=== PATIENT | female | born 1935 | race Caucasian/White ===

== ENCOUNTER 2021-01-26 19:23 | Emergency (ER) | payer OTHER, MEDICARE, SELFPAY ==
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
[2021-01-26 19:45] VITALS: BP 156/81; PULSE 65; RESP 16; TEMP 36.7; O2SAT 96; BMI 25.0
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
--- NOTE | 2021-01-26 20:13 | PC.NURSE ---
Ambulated to bathroom with minimal assistance.
[2021-01-26 20:34] VITALS: BP 145/91; PULSE 76; RESP 16; O2SAT 96
== END 2021-01-26 20:35 | disposition home or self-care (01) ==
PROVIDERS: Emergency Provider Emergency Medicine
DX: S20.219A Contusion of unspecified front wall of thorax, initial encounter (principal); V89.2XXA Person injured in unspecified motor-vehicle accident, traffic, initial encounter
CPT/HCPCS: 71046; 73100; 99281

== ENCOUNTER 2021-08-16 18:39 | Emergency (ER) | payer MEDICARE, MEDICAID, SELFPAY ==
[2021-08-16 18:53] VITALS: BP 181/94; PULSE 75; RESP 18; TEMP 36.9; O2SAT 92; BMI 24.6
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
--- NOTE | 2021-08-16 18:56 | CTR_ITS ---
PROCEDURE INFORMATION: Exam: CT Thoracic Spine Without Contrast Exam date and time: 08/16/2021 7:11 PM Age: 85 years old Clinical indication: Pain in thoracic spine; Additional info: Fall TECHNIQUE: Imaging protocol: Computed tomography images of the thoracic spine without contrast. Radiation optimization: All CT scans at this facility use at least one of these dose optimization techniques: automated exposure control; mA and/or kV adjustment per patient size (includes targeted exams where dose is matched to clinical indication); or iterative reconstruction. COMPARISON: CR (CHEST, ) 01/26/2021 7:39 PM RADIATION DOSE METRICS: Total DLP (mGy-cm): 2545.08 FINDINGS: Vertebrae: Mild exaggeration of the thoracic kyphosis. Diffuse osteopenia noted throughout the spine. No acute compression fractures are noted. 1.8 cm T2 vertebral body hemangioma. Discs/Spinal canal/Neural foramina: Degenerative disc changes and ankylosis noted throughout the thoracic spine. No spinal canal stenosis. Soft tissues: Unremarkable. CT/CT thoracic spin wo con* [id number] IMPRESSION: 1. Degenerative thoracic spine changes are noted. 2. No acute abnormality of the thoracic spine demonstrated.
--- NOTE | 2021-08-16 19:00 | W.ED.FALL ---
HPI - Fall General: Chief Complaint: Fall Stated Complaint: hurting from fall Time Seen by Provider: 08/16/21 18:42 Source: patient Mode of arrival: ambulatory Limitations: no limitations History of Present Illness: 85-year-old female who states that she been walking up some stairs roughly 2 to 3 hours ago and tripped on the first developed and fell backwards. She states she landed on her buttocks and has tailbone pain along with some lumbar and thoracic pain. States pain is sharp in nature rates it a 5 out of 10 its worse with walking she denies any other injuries denies any hip pain or leg pain she denies hitting her head denies any headache or neck pain. Associated symptoms-after fall: Denies abdominal pain, chest pain or headache(s) Review of Systems Const: Denies: fever(s), chills, body aches or change in appetite Eyes: Denies: blurry vision or eye discomfort ENMT: Denies: throat pain or dental pain Card: Denies: chest pain Resp: Denies: dyspnea GI: Denies: abdominal pain, nausea, vomiting or diarrhea : Denies: dysuria Musc: Reports: back pain Skin/Breast: Denies: rash Neuro: Denies: headache(s) Psych: Denies: depression Clarence/Lymph: Denies: easy bruising All/Imm: Denies: urticaria [facility] ED PFSH: Medical History No pertinent past medical history Social History (Updated 08/16/21 @ 19:00 by Hernesto Welch MD) Substance/Drug Use: never Physical Exam Const: COMMON NORMALS: no acute distress, patient oriented x3 and healthy appearing HENMT: COMMON NORMALS: normocephalic and atraumatic HEAD & SCALP: normocephalic and atraumatic Eye: COMMON NORMALS: Equal, round and reactive pupils present and EOMs intact bilaterally PUPIL: Yes Equal, round and reactive pupils present Neck/C-Spine: COMMON NORMALS: full ROM and supple Chest: COMMONS NORMALS: normal inspection of the chest and normal palpation of entire chest wall Resp: COMMON NORMALS: normal respiratory effort, No retractions, No use of accessory muscles and clear to auscultation bilaterally AUSCULTATION: clear to auscultation bilaterally Cardio: COMMON NORMALS: regular rate, regular rhythm and No murmurs present (Cardio) RATE: regular rate RHYTHM: regular rhythm GI: COMMON NORMALS: Normal to inspection, nondistended, normoactive bowel sounds present, Soft to palpation, non-tender and no masses PALPATION: Yes Soft to palpation Back/Pelvis: OTHER: Slight tenderness over thoracic lumbar spine with no obvious deformities Extremity: COMMON NORMALS: normal to inspection and full ROM Neuro: COMMON NORMALS: patient oriented x3, moves all extremities and no focal motor deficits Psych: COMMON NORMALS: mental status grossly normal, Normal thought process present and cooperative THOUGHT PROCESS: Normal thought process present Skin: COMMON NORMALS: no rashes or lesions noted and no wounds GENERAL SKIN EXAM: no rashes or lesions noted Course Vital Signs: Vital signs: Vital Signs Temperature 98.5 F 08/16/21 18:53 Pulse Rate 75 08/16/21 18:53 Respiratory Rate 18 08/16/21 18:53 Blood Pressure 181/94 08/16/21 18:53 Pulse Oximetry 92 08/16/21 18:53 MDM - Fall Medical Decision Making Patient presents here with fall with a possible T12 fracture patient has minimal pain here exam is benign she able ambulate without any problems she is stable for discharge she is to follow-up return if worsening. Lab Data Radiology Impressions Lumbar Spine CT 08/16/21 18:56 IMPRESSION: 1. Mild superior endplate compression fracture of T12, of undetermined age. Acute fracture not excluded. Consider MRI to further evaluate. 2. No additional vertebral compression fractures are noted. Thoracic Spine CT 08/16/21 18:56 IMPRESSION: 1. Degenerative thoracic spine changes are noted. 2. No acute abnormality of the thoracic spine demonstrated. ADDENDUM: 08/16/212019 Correction: There is mild loss of height of the T12 vertebral body, consistent with a compression fracture of undetermined age. This finding is better demonstrated on the CT lumbar spine study, which uses a smaller field of view. Discharge Plan Discharge Patient Disposition: Home Clinical Impression: Compression fracture Prescriptions: New Naprosyn 500 mg tablet 500 mg PO BID PRN (Reason: pain) Qty: 20 0RF hydrocodone-acetaminophen 5-325 mg tablet 1 tab PO Q6H PRN (Reason: pain) Qty: 6 0RF No Action Vitamin D2 10 mcg (400 unit) Tablet 10 mcg PO DAILY 0RF acebutolol 400 mg capsule 400 mg PO DAILY 0RF Aspir-81 81 mg Tablet,Delayed Release (Dr/Ec) 81 mg PO DAILY 0RF hydrochlorothiazide 25 mg tablet 25 mg PO DAILY 0RF sertraline 50 mg tablet 50 mg PO DAILY 0RF Discharge Orders: Discharge ED (Routine); Ordered 08/16/21 Ordered By: Hernesto Welch Referrals: Waylon Burk DO [Physician] - 1-3 days Discharge Diet: Advance as tolerated Discharge Activity: Resume usual activity Patient Instructions: Vertebral Compression Fracture (ED) Coding Level of Care Code ED Mattress Filling Machine Tender for Chg Fwd Exam Comprehensive
[2021-08-16] MEDS: naproxen 500 mg Tablet PO (19:04)
--- NOTE | 2021-08-17 09:59 | DCPLANNER ---
Addendum entered by Charlotte Connolly 08/19/21 06:30: Patient had a follow up appointment scheduled for 08.18.[address] Burk at ortho - patient did attend appointment. Original Note: printing manager had message to schedule a follow up appointment for patient with [facility]. printing manager sent patients information to the ortho clinic front staff. Patients information will be printed and reviewed. Clinic will call patient with appointment information.
== END 2021-08-16 20:42 | disposition home or self-care (01) ==
PROVIDERS: Emergency Provider Emergency Medicine
DX: S22.080A Wedge compression fracture of T11-T12 vertebra, initial encounter for closed fracture (principal); W10.9XXA Fall (on) (from) unspecified stairs and steps, initial encounter
CPT/HCPCS: 72128; 72131; 99283

== ENCOUNTER → 2021-08-18 14:30 | Outpatient (BNVA) | payer MEDICARE, SELFPAY | PROVIDERS: Referring Provider Emergency Medicine; Visit Provider Orthopaedic Surgery | DX: R07.81 Pleurodynia (principal) | CPT/HCPCS: 99203 ==

== ENCOUNTER 2022-12-12 13:24 | Inpatient (IN) | payer MEDICARE, MEDICAID, SELFPAY ==
[2022-12-12] VITALS (8 sets, daily range): BP systolic 125–145; BP diastolic 56–74; PULSE 62–71; RESP 14–18; TEMP 36.7–36.8; O2SAT 90–97; BMI 25.0
--- NOTE | 2022-12-12 13:43 | ED_ITS ---
Documented by User: Sekou Moncada DO 12/12/22 15:57 HPI - Extremity Problem General: Chief complaint: Extremity Injury, Lower Stated complaint: poss broken LT hip Time Seen by Provider: 12/12/22 13:44 Source: patient Mode of arrival: ambulatory History of Present Illness: 86-year-old female presents emergency room with complaints of left hip pain. She was at [facility] and she went to turn on her left hip and fell she felt like she stumbled or just lost her balance she landed on her left hip when she had the floor had severe pain and could not stand EMS brought her into the emergency room. She has an obviously externally rotated hip. She is not on any anticoagulants she last ate around 12/19/1929 this morning she has severe pain with any movement. No other injuries she denies striking her head. She has a history of hypertension. MD Complaint: joint pain Onset (ago): minute(s) Pain Consistency: constant Location: left (Hip) Severity scale (1-10): 10 Quality: sharp Radiation: distal Relieving factors: rest Exacerbating factors: palpation Associated symptoms: Deny arthralgias, chest pain, fever(s), myalgias, rash or short of breath Review of Systems Const: Denies: fever(s) or chills ENMT: Denies: throat pain, ear or mastoid pain, nasal discharge or nasal congestion Card: Denies: chest pain Resp: Denies: dyspnea, productive cough or non-productive cough GI: Denies: abdominal pain, nausea, vomiting, hematemesis, coffee ground emesis, diarrhea, constipation, bloating, hematochezia or melena : Denies: flank pain, difficulty voiding, dysuria, urinary frequency or urinary urgency Skin/Breast: Denies: rash PFS ED PFSH: Medical History No pertinent past medical history Social History Smoking and tobacco status: former smoker Substance/Drug Use: never Physical Exam Const: GENERAL APPEARANCE: cooperative and comfortable ORIENTATION/CONSCIOUSNESS: Yes awake, Yes oriented to person, Yes oriented to place and Yes oriented to time HENMT: COMMON NORMALS: normocephalic, atraumatic and hearing grossly normal bilaterally HEAD & SCALP: normocephalic and atraumatic Resp: COMMON NORMALS: normal respiratory effort, No retractions, No use of accessory muscles and clear to auscultation bilaterally AUSCULTATION: clear to auscultation bilaterally Cardio: COMMON NORMALS: regular rate, regular rhythm and No murmurs present (Cardio) RATE: regular rate RHYTHM: regular rhythm GI: COMMON NORMALS: Soft to palpation and No hepatosplenomegaly present AUSCULTATION: Yes normoactive bowel sounds PALPATION: Yes Soft to palpation, No Tenderness to palpation present (GI), No Guarding due to palpation present (GI) and Yes No hepatosplenomegaly present Extremity: COMMON NORMALS: normal to inspection, capillary refill normal, no clubbing, cyanosis or edema, no calf tenderness and no pedal edema OTHER: Left hip externally rotated and shortened. Neurovascular intact both lower extremities Neuro: SENSORIUM/ORIENTATION: Yes oriented to person, Yes oriented to place an d Yes oriented to time Skin: COMMON NORMALS: no rashes or lesions noted GENERAL SKIN EXAM: no rashes or lesions noted Course Vital Signs: Vital signs: Vital Signs Temperature 97.9 F 12/13/22 17:29 Pulse Rate 65 12/13/22 18:25 Respiratory Rate 16 12/13/22 18:25 Blood Pressure 106/63 12/13/22 18:25 Pulse Oximetry 96 12/13/22 18:25 Oxygen Delivery Me thod Nasal Cannula 12/13/22 18:25 Oxygen Flow Rate 3 12/13/22 17:29 MDM - Extremity (Nontraumatic) Medical Decision Making Left femoral neck/subcapital mildly displaced hip fracture. Discussed Dr. Nichols and with hospitalist orders written will admit Dr. Nichols informed me he plans to take the patient to the OR tomorrow as a to follow case after his previously janeth eduled cases pain medications given to the patient in the emergency room Medical Records I reviewed the patient's medical records. Lab Data I reviewed the patient's lab results. 12/13/22 04:06 12/13/22 04:06 Radiology Impressions Chest X-Ray 12/12/22 14:29 IMPRESSION: No acute findings. Femur X-Ray 12/12/22 14:29 IMPRESSION: 1. Subcapital fracture left femoral neck 2. Otherwise negative exam of the left femur Knee X-Ray 12/12/22 14:29 IMPRESSION: 1. Severe osteoarthritis 2. No acute findings. 3. Supra patella bursa effusion Chest CTA 12/13/22 08:52 IMPRESSION: 1. No pulmonary embolism. 2. No adenopathy. 3. LEFT upper lobe 9 mm pulmonary nodule and a 10 mm nodule along the inferior RIGHT major fissure. Both of these nodules may be further evaluated. Differential includes early neoplasm versus atelectasis or fluid along the fissure. Recommend follow-up chest CT in 3 months. 4. Moderate size hiatal hernia. 5. Moderate atherosclerosis aorta. Hip/Pelvis X-Ray 12/13/22 17:23 IMPRESSION: 1. Left hip arthroplasty changes in place with postsurgical soft tissue findings. 2. [id number] right hip osteoarthritis. Laboratory Results WBC 10.5 10^3/uL (4.0-10.0) H 12/12/22 14:24 RBC 4.73 10^6/uL (4.1-5.3) 12/12/22 14:24 Hgb 13.8 g/dL (11.5-15.3) 12/12/22 14:24 Hct 42.0 % (37.0-47.0) 12/12/22 14:24 MCV 88.8 fl (81-99) 12/12/22 14:24 MCH 29.2 pg (28.0-34.0) 12/12/22 14:24 MCHC 32.9 g/dL (30.0-36.0) 12/12/22 14:24 RDW 11.9 % (12.1-15.1) L 12/12/22 14:24 Plt Count 211 10^3/cmm (130-400) 12/12/22 14:24 MPV 9.8 fL (7.4-10.4) 12/12/22 14:24 Neut % (Auto) 82.4 % 12/12/22 14:24 Lymph % (Auto) 10.5 % 12/12/22 14:24 [place] % (Auto) 5.1 % 12/12/22 14:24 Eos % (Auto) 1.1 % 12/12/22 14:24 Baso % (Auto) 0.3 % 12/12/22 14:24 Neut # (Auto) 8.64 10^3/uL (1.8-7.7) H 12/12/22 14:24 Lymph # (Auto) 1.1 10^3/uL (0.8-4.8) 12/12/22 14:24 [place] # (Auto) 0.5 10^3/uL (0.2-0.9) 12/12/22 14:24 Eos # (Auto) 0.1 10^3/uL (0.0-0.8) 12/12/22 14:24 Baso # (Auto) 0.0 10^3/uL (0.0-0.1) 12/12/22 14:24 Nucleated RBC % (auto) 0 % 12/12/22 14:24 Nucleated RBCs # 0.0 /100WBC 12/12/22 14:24 D-Dimer 14.51 ug/mIFEU (0-0.59) H 12/12/22 14:24 Vitamin B12 353 pg/mL (232-1245) 12/12/22 14:24 Urine Color Yellow (Yellow) 12/12/22 15:20 Urine Appearance Clear (CLEAR) 12/12/22 15:20 Urine pH 6 (5-7) 12/12/22 15:20 Ur Specific [place] 1.015 (1.005-1.030) 12/12/22 15:20 Urine Protein Neg (Negative) 12/12/22 15:20 Urine Glucose (UA) Norm (Normal) 12/12/22 15:20 Urine Ketones Negative (Negative) 12/12/22 15:20 Urine Blood Neg (Negative) 12/12/22 15:20 Urine Nitrate Negative (Negative) 12/12/22 15:20 Urine Bilirubin Neg (Negative) 12/12/22 15:20 Urine Urobilinogen Norm mg/dL (Negative) 12/12/22 15:20 Ur Leukocyte Esterase Negative (Negative) 12/12/22 15:20 Discharge Plan Discharge Patient Disposition: Admitted As Inpatient Admit Provider: Zaid Monroy Clinical Impression: Closed fracture of neck of left femur, Hypertension Condition: Stable Coding Level of Care Code ED Tank Stave Assembler for Chg Fwd Documented by User: Andrew Laoterrance 12/13/22 19:55 HPI - Extremity Problem General: Chief complaint: Extremity Injury, Lower Stated complaint: poss broken LT hip Time Seen by Provider: 12/12/22 13:44 PFSH ED PFSH: Medical History No pertinent past medical history Social History Smoking and tobacco status: former smoker Substance/Drug Use: never Course Vital Signs: Vital signs: Vital Signs Temperature 97.9 F 12/13/22 17:29 Pulse Rate 65 12/13/22 18:25 Respiratory Rate 16 12/13/22 18:25 Blood Pressure 106/63 12/13/22 18:25 Pulse Oximetry 96 12/13/22 18:25 Oxygen Delivery Me thod Nasal Cannula 12/13/22 18:25 Oxygen Flow Rate 3 12/13/22 17:29 MDM - Extremity (Nontraumatic) Medical Records I never did see this patient I clicked on this patient's chart however my colleague Dr. Corral saw and evaluated this patient prior to my involvement i n which I had no additional involvement of the case Lab Data 12/13/22 04:06 12/13/22 04:06 Radiology Impressions Chest X-Ray 12/12/22 14:29 IMPRESSION: No acute findings. Femur X-Ray 12/12/22 14:29 IMPRESSION: 1. Subcapital fracture left femoral neck 2. Otherwise negative exam of the left femur Knee X-Ray 12/12/22 14:29 IMPRESSION: 1. Severe osteoarthritis 2. No acute findings. 3. Supra patella bursa effusion Chest CTA 12/13/22 08:52 IMPRESSION: 1. No pulmonary embolism. 2. No adenopathy. 3. LEFT upper lobe 9 mm pulmonary nodule and a 10 mm nodule along the inferior RIGHT major fissure. Both of these nodules may be further evaluated. Differential includes early neoplasm versus atelectasis or fluid along the fissure. Recommend follow-up chest CT in 3 months. 4. Moderate size hiatal hernia. 5. Moderate atherosclerosis aorta. Hip/Pelvis X-Ray 12/13/22 17:23 IMPRESSION: 1. Left hip arthroplasty changes in place with postsurgical soft tissue findings. 2. Gzyj-hv-uqomxsnh right hip osteoarthritis. Laboratory Results WBC 10.5 10^3/uL (4.0-10.0) H 12/12/22 14:24 RBC 4.73 10^6/uL (4.1-5.3) 12/12/22 14:24 Hgb 13.8 g/dL (11.5-15.3) 12/12/22 14:24 Hct 42.0 % (37.0-47.0) 12/12/22 14:24 MCV 88.8 fl (81-99) 12/12/22 14:24 MCH 29.2 pg (28.0-34.0) 12/12/22 14:24 MCHC 32.9 g/dL (30.0-36.0) 12/12/22 14:24 RDW 11.9 % (12.1-15.1) L 12/12/22 14:24 Plt Count 211 10^3/cmm (130-400) 12/12/22 14:24 MPV 9.8 fL (7.4-10.4) 12/12/22 14:24 Neut % (Auto) 82.4 % 12/12/22 14:24 Lymph % (Auto) 10.5 % 12/12/22 14:24 [place] % (Auto) 5.1 % 12/12/22 14:24 Eos % (Auto) 1.1 % 12/12/22 14:24 Baso % (Auto) 0.3 % 12/12/22 14:24 Neut # (Auto) 8.64 10^3/uL (1.8-7.7) H 12/12/22 14:24 Lymph # (Auto) 1.1 10^3/uL (0.8-4.8) 12/12/22 14:24 [place] # (Auto) 0.5 10^3/uL (0.2-0.9) 12/12/22 14:24 Eos # (Auto) 0.1 10^3/uL (0.0-0.8) 12/12/22 14:24 Baso # (Auto) 0.0 10^3/uL (0.0-0.1) 12/12/22 14:24 Nucleated RBC % (auto) 0 % 12/12/22 14:24 Nucleated RBCs # 0.0 /100WBC 12/12/22 14:24 D-Dimer 14.51 ug/mIFEU (0-0.59) H 12/12/22 14:24 Vitamin B12 353 pg/mL (232-1245) 12/12/22 14:24 Urine Color Yellow (Yellow) 12/12/22 15:20 Urine Appearance Clear (CLEAR) 12/12/22 15:20 Urine pH 6 (5-7) 12/12/22 15:20 Ur Specific [place] 1.015 (1.005-1.030) 12/12/22 15:20 Urine Protein Neg (Negative) 12/12/22 15:20 Urine Glucose (UA) Norm (Normal) 12/12/22 15:20 Urine Ketones Negative (Negative) 12/12/22 15:20 Urine Blood Neg (Negative) 12/12/22 15:20 Urine Nitrate Negative (Negative) 12/12/22 15:20 Urine Bilirubin Neg (Negative) 12/12/22 15:20 Urine Urobilinogen Norm mg/dL (Negative) 12/12/22 15:20 Ur Leukocyte Esterase Negative (Negative) 12/12/22 15:20 Discharge Plan Discharge Patient Disposition: Admitted As Inpatient Admit Provider: Zaid Monroy Clinical Impression: Closed fracture of neck of left femur, Hypertension Condition: Stable Coding Level of Care Code ED Tank Stave Assembler for Yang Lopez
--- NOTE | 2022-12-12 13:58 | XRR_ITS ---
PROCEDURE INFORMATION: Exam: XR Left Hip Exam date and time: 12/12/2022 2:07 PM Age: 86 years old Clinical indication: Injury or trauma; Fall; Blunt trauma (contusions or hematomas); Left; Hip; Additional info: Fall pain/trauma TECHNIQUE: Imaging protocol: Radiologic exam of the left hip. Views: 2 or 3 views hip with pelvis when performed. COMPARISON: CT lumbar spine wo con* [id number] 08/16/2021 7:16 PM FINDINGS: Bones/joints: There is a displaced retracted subcapital fracture of the left femoral neck. Soft tissues: Unremarkable. XR/XR hip LT 2-3V wo/w pel* [id number] IMPRESSION: 1. Displaced retracted subcapital fracture left femoral neck. 2. Otherwise negative examination.
--- NOTE | 2022-12-12 14:29 | XRR_ITS ---
PROCEDURE INFORMATION: Exam: XR Left Knee Exam date and time: 12/12/2022 3:04 PM Age: 86 years old Clinical indication: Injury or trauma; Fall; Blunt trauma; Knee; Left TECHNIQUE: Imaging protocol: Radiologic exam of the left knee. Views: 3 views. COMPARISON: CR XR femur LT min 2V* [id number] 12/12/2022 3:00 PM FINDINGS: Bones/joints: Tricompartmental narrowing is seen corresponding to severe osteoarthritis Soft tissues: Suprapatellar bursa effusion. XR/XR knee LT 3V* [id number] IMPRESSION: 1. Severe osteoarthritis 2. No acute findings. 3. Supra patella bursa effusion
--- NOTE | 2022-12-12 14:29 | XRR_ITS ---
PROCEDURE INFORMATION: Exam: XR Chest Exam date and time: 12/12/2022 2:58 PM Age: 86 years old Clinical indication: Cough and dyspnea; Additional info: Dyspnea/cough TECHNIQUE: Imaging protocol: Radiologic exam of the chest. Views: 1 view. COMPARISON: CR (CHEST, ) 01/26/2021 7:39 PM FINDINGS: Lungs: Unremarkable. No consolidation. Pleural spaces: Unremarkable. No pleural effusion. No pneumothorax. Heart/Mediastinum: Unremarkable. No cardiomegaly. Bones/joints: Unremarkable. XR/XR chest 1V portable [id number] IMPRESSION: No acute findings.
--- NOTE | 2022-12-12 14:29 | ECG_ITS ---
[facility] Test Date: 2022-12-12 Pat Name: Deirdre Connolly Department: Room: Gender: Female Claims Coordinator: : [id number] Requested By: Sekou Calhoun Order Number: [id number] [place] MD: Tari Langley M.D. Measurements Intervals Spring Rate: 66 P: 59 DC: 212 QRS: -17 QRSD: 141 T: 72 QT: 450 QTc: 474 Interpretive Statements SINUS RHYTHM WITH FIRST DEGREE AV BLOCK INTRAVENTRICULAR CONDUCTION DELAY [130+ ms QRS DURATION] LATERAL MYOCARDIAL INFARCTION , OF INDETERMINATE AGE [40+ ms Q WAVE AND/OR ST/T ABNORMALITY IN I/aVL/V5/V6] No previous ECG available for comparison Electronically Signed On 12-12-2022 20:26:54 CDT by Tari Langley M.D. [email or web address]
--- NOTE | 2022-12-12 14:29 | XRR_ITS ---
PROCEDURE INFORMATION: Exam: XR Left Femur Exam date and time: 12/12/2022 3:00 PM Age: 86 years old Clinical indication: Injury or trauma; Fall; Blunt trauma; Thigh or upper leg; Left TECHNIQUE: Imaging protocol: Radiologic exam of the left femur. Views: 2 views. COMPARISON: CR XR hip LT 2-3V wo/w pel* [id number] 12/12/2022 2:07 PM FINDINGS: Bones/joints: There is a displaced subcapital fracture left femoral neck. The remainder of the femur does not show acute abnormality. Soft tissues: Left hip soft tissue effusion is seen. XR/XR femur LT min 2V* [id number] IMPRESSION: 1. Subcapital fracture left femoral neck 2. Otherwise negative exam of the left femur
[2022-12-12] MEDS: morphine 4 mg/mL SDV 1 mL IVP (14:35)
[2022-12-12] MEDS: promethazine 25 mg/mL SDV 1 mL IM (14:37)
--- NOTE | 2022-12-12 14:37 | PC.NURSE ---
MORPHINE PUSHED BUY ANA MARÍA Hernandes RN
[2022-12-12 14:45] LABS: Basophils % 0.3 %; Eosinophils # 0.1 10^3/uL (0.0-0.8); Eosinophils % 1.1 %; Hemoglobin 13.8 g/dL (11.5-15.3); Lymphocytes # 1.1 10^3/uL (0.8-4.8); Lymphocytes % 10.5 %; Mean Corpuscular HGB Conc 32.9 g/dL (30.0-36.0); Mean Corpuscular Hemoglobin 29.2 pg (28.0-34.0); Mean Corpuscular Volume 88.8 fl (81-99); Mean Platelet Volume 9.8 fL (7.4-10.4); Monocytes # 0.5 10^3/uL (0.2-0.9); Monocytes % 5.1 %; Neutrophils # 8.64 10^3/uL (1.8-7.7); Neutrophils % 82.4 %; Nucleated Red Blood Cells % 0 %; Platelet Count 211 10^3/cmm (130-400); Red Blood Count 4.73 10^6/uL (4.1-5.3); Red Cell Distribution Width 11.9 % (12.1-15.1); White Blood Count 10.5 10^3/uL (4.0-10.0)
--- NOTE | 2022-12-12 15:10 | PC.NURSE ---
PT WAS SATTING IN THE 80S SO I PLACED PT ON 2L O2. PT IS NOW 96/97
--- NOTE | 2022-12-12 15:14 | P.HP_ITS ---
Providers/Chief Complaint Primary Care Provider: Lamberto Padilla MD Chief Complaint: poss broken LT hip History of Present Illness Deirdre Connolly is a 86 year old female that significant past medical history, patient stating that she recently had echo done at [facility] it was normal her x-ray was normal as well, she is fairly active for age, no cardiac history, today when she was at [facility] she turned around in the bathroom lost her balance and fell on the ground she did not lose consciousness, no seizure, chest pain shortness of breath or vomiting. He is endorsing nausea. At the time of evaluation patient is endorsing pain 6/10 family at the bedside We will start IV fluids overnight Requested echo from [facility] Review of Systems Eyes: Denies: change in vision ENMT: Denies: throat pain Card: Denies: chest pain Resp: Denies: dyspnea GI: Denies: abdominal pain : Denies: flank pain Musc: Reports: back pain and extremity pain Skin/Breast: Denies: rash Neuro: Denies: headache(s) Psych: Denies: anxiety Endo: Denies: polyuria Medications/Allergies Home Medications Medication Instructions Recorded Confirmed Last Taken Type acebutolol 400 mg capsule 400 mg PO BID 08/16/21 12/12/22 12/12/22 09:30 History aspirin 81 mg tablet,delayed 81 mg PO [facility] 08/16/21 12/12/22 12/12/22 09:30 History release hydrochlorothiazide 25 mg tablet 25 mg PO QA 08/16/21 12/12/22 12/12/22 09:30 History sertraline 50 mg tablet 50 mg PO [facility] 08/16/21 12/12/22 12/12/22 09:30 History corset brace #1 ea 08/18/21 12/12/22 Unknown Rx incentive spirometer #1 ea 08/18/21 12/12/22 Unknown Rx Allergies Allergy/AdvReac Type Severity Reaction Status Date / Time Penicillins Allergy Unknown Verified 12/12/22 14:04 PFSH Acute PFSH: Medical History No pertinent past medical history Social History Smoking and tobacco status: former smoker Substance/Drug Use: never Vitals/I&O/Wt Last Vital Signs Temp 98.1 F 12/12/22 13:32 Pulse 68 12/12/22 14:32 Resp 16 12/12/22 14:35 BP 143/66 12/12/22 14:32 Pulse Ox 93 12/12/22 14:32 O2 Del Method Room Air 12/12/22 14:32 Weight last 48 hrs Weight 68.039 kg Physical Exam Narrative: pleasant elderly female Euvolemic S1, S2 Currently on room air Nonfocal neuro exam GCS 15 No active distress Garrett catheter in place Abdomen soft Family at the bedside Data 12/12/22 14:24 A&P Assessment and plan (1) Closed fracture of neck of left femur: (2) Hypertension: Plan Hip fracture after mechanical fall Patient is stating she is fairly active for age She mows lawn, takes care of herself, drives, goes for grocery shopping Recent echo was done at [facility] which was normal as per the patient, will request records No previous history of cardiac history I would not recommend any preoperative work-up N.p.o. after midnight Start IV fluids overnight Garrett catheter has been placed already For hypertension pain management and optimization of antiplatelet regimen Full code Regular diet for now N.p.o. after midnight DVT prophylaxis given today with Lovenox Attestations Medical Necessity Statement*: More than 2 midnights anticipated Diagnoses Closed fracture of neck of left femur S72.002A Hypertension I10
[2022-12-12 15:36] LABS: Add Urine Microscopic? NO; Charge for UA Resulting for Rev
[2022-12-12 15:40] LABS: Bilirubin Urine Neg (Negative); Blood Urine Neg (Negative); Glucose Urine UA Norm (Normal); Ketones Urine Negative (Negative); Leukocyte Esterase Urine Negative (Negative); Nitrate Urine Negative (Negative); Protein Urine Neg (Negative); Specific Gravity, Urine 1.015 (1.005-1.030); Urine Appearance Clear (CLEAR); Urine Color Yellow (Yellow); Urobilinogen Urine Norm (Negative); pH Urine 6 (5-7)
[2022-12-12 15:58] LABS: D Dimer 14.51 ug/mIFEU (0-0.59)
[2022-12-12] MEDS: ondansetron 2 mg/ML SDV 2 mL 4 MG IVP ×2 (16:02→18:23)
--- NOTE | 2022-12-12 16:02 | PC.NURSE ---
JALEN PUSHED BY ANA MARÍA Hernandes RN
--- NOTE | 2022-12-12 17:11 | P.CONIM_ITS ---
Providers/Reason For Consult Consulting Physician/Specialty*: Chris Nichols DO/orthopedic surgery Reason for Consult*: Displaced left femoral neck fracture Requesting Physician: Dr. Moncada Attending Physician: Zaid Monroy MD Primary Care Provider: Lamberto Padilla MD History of Present Illness History of Present Illness Deirdre Connolly is a 86 year old female pleasant 86-year-old female sustained a fall while at [facility] today slipped in the bathroom she sustained a fall directly on her left hip she was brought to the emergency department found to have a displaced left femoral neck fracture. She was unable to weight-bear after the injury. She denies any loss of consciousness or hitting of her head denies any other complaints of pain elsewhere in her body. She denies any fevers chills chest pain shortness of breath nausea or vomiting. Denies being on any blood thinners. Patient denies any history of diabetes mellitus. Patient is lives at home by herself is a community ambulator at baseline does not utilize a walker. She denies any prior hip pain before the injury. Patient ate breakfast this morning. Internal medicine has admitted patient as primary. Orthopedics consulted. Review of Systems General: Reports: 10 or more systems reviewed and unremarkable except in HPI and below Medications/Allergies Home Medications Medication Instructions Recorded Confirmed Last Taken Type acebutolol 400 mg capsule 400 mg PO BID 08/16/21 12/12/22 12/12/22 09:30 History aspirin 81 mg tablet,delayed 81 mg PO QAM 08/16/21 12/12/22 12/12/22 09:30 History release hydrochlorothiazide 25 mg tablet 25 mg PO QAM 08/16/21 12/12/22 12/12/22 09:30 History sertraline 50 mg tablet 50 mg PO QAM 08/16/21 12/12/22 12/12/22 09:30 History corset brace #1 ea 08/18/21 12/12/22 Unknown Rx incentive spirometer #1 ea 08/18/21 12/12/22 Unknown Rx Allergies Allergy/AdvReac Type Severity Reaction Status Date / Time Penicillins Allergy Unknown Verified 12/12/22 14:04 PFSH Acute 2 PFSH: Medical History No pertinent past medical history Social History Smoking and tobacco status: former smoker Substance/Drug Use: never Vitals/I&O/Wt Last Vital Signs Temp 98.1 F 12/12/22 13:32 Pulse 68 12/12/22 16:11 Resp 17 12/12/22 16:11 BP 145/56 12/12/22 16:11 Pulse Ox 97 12/12/22 16:04 O2 Del Method Nasal Cannula 12/12/22 16:04 O2 Flow Rate 2 12/12/22 16:04 Weight last 48 hrs Weight 150 lb Physical Exam Narrative: Orthopedic examination: Examination of patient's left lower extremity shortened and externally rotated. Patient has tenderness to palpation pain to the left hip. Positive logroll unable to perform Stinchfield secondary to pain. She has no tenderness to palpation of the left knee foot or ankle. She is able to wiggle her toes plantarflex and dorsiflex ankle sensations intact light touch distally. Pelvis is stable on examination with pelvic compression test with no pain. She has no tenderness to palpation of the lumbar spine. Patient is able to wiggle toes plantarflex and dorsiflex ankle with gross motor and sensory intact of the right lower extremity with no tenderness palpation of the right hip knee foot and ankle. Secondary survey examination: Demonstrates no tenderness to palpation deformity or painful range of motion of the bilateral shoulders elbows wrist and hands. Gross motor and sensory intact. Urinary Catheter Management: Garrett: Cath Placed During This Visit: yes Urinary Catheter Date of Insertion: 12/12/22 Urinary Catheter Time of Insertion: 15:31 Data 12/12/22 14:24 Xray Ortho: My impression: X-rays multiple views of the AP of the pelvis hip left femur and knee demonstrate a displaced left femoral neck fracture with its in the transcervical region. A&P Assessment and plan (1) Closed fracture of neck of left femur: Plan N.p.o. at midnight?may have a diet today X-rays reviewed Labs reviewed Internal medicine admission as primary Pain control Ice as needed Nonweightbearing left lower extremity Hold a.m. anticoagulation Plan for OR tomorrow for left hip hemiarthroplasty, cemented Patient is a pleasant 86-year-old female that is fairly active lives at home by herself and does not utilize an assistive walking device. She sustained a g round-level fall and has a left displaced femoral neck fracture. We talked about her treatment options in detail with patient as well as family at bedside we talked about the risk benefits complication alternatives with each. At this point time for immobilization as well as pain control would recommend left hip hemiarthroplasty cemented. Risk of surgery include not limited to make a better make it worse injury to nerves vessels or tendons, blood clot, heart attack, stroke, on the table, hardware failure, infection. Understanding risk of surgery patient elects to proceed with surgical intervention all questions been answered at this time. We will get her added on surgery schedule tomorrow for left hip hemiarthroplasty. Consult Attestations Medical Necessity Statement: Left displaced femoral neck fracture Coding Level of Care Code Acute Code for [facility] Fwd Diagnoses Closed fracture of neck of left femur S72.002A Time Spent (min) 45
[2022-12-12 18:18] LABS: Vitamin B12 353 pg/mL (232-1245)
[2022-12-12] MEDS: ketorolac 30 mg/mL INJ IVP (18:19)
[2022-12-12] MEDS: morphine IR 15 mg Tablet PO (18:23)
[2022-12-12] MEDS: sodium chloride 0.9% 1,000 ML 75 ML IV (21:07)
[2022-12-13] VITALS (15 sets, daily range): BP systolic 103–131; BP diastolic 48–71; PULSE 60–89; RESP 12–19; TEMP 36.6–37.4; O2SAT 80–98
[2022-12-13 04:26] LABS: Basophils % 0.2 %; Eosinophils # 0.1 10^3/uL (0.0-0.8); Eosinophils % 0.8 %; Hematocrit 41.1 % (37.0-47.0); Hemoglobin 13.6 g/dL (11.5-15.3); Lymphocytes # 0.9 10^3/uL (0.8-4.8); Lymphocytes % 14.6 %; Mean Corpuscular HGB Conc 33.1 g/dL (30.0-36.0); Mean Corpuscular Hemoglobin 30.1 pg (28.0-34.0); Mean Corpuscular Volume 90.9 fl (81-99); Mean Platelet Volume 9.6 fL (7.4-10.4); Monocytes # 0.6 10^3/uL (0.2-0.9); Monocytes % 9.3 %; Neutrophils # 4.66 10^3/uL (1.8-7.7); Neutrophils % 74.9 %; Nucleated Red Blood Cells % 0 %; Platelet Count 162 10^3/cmm (130-400); Red Blood Count 4.52 10^6/uL (4.1-5.3); Red Cell Distribution Width 12.1 % (12.1-15.1); White Blood Count 6.2 10^3/uL (4.0-10.0)
[2022-12-13 04:48] LABS: Anion Gap 11.7 (5-19); Blood Urea Nitrogen 21 mg/dL (8-23); Calcium 9.1 mg/dL (8.5-10.5); Carbon Dioxide 34 mmol/L (22-29); Chloride 100 mmol/L (98-107); Glucose 111 mg/dL (65-115); Magnesium 1.8 mg/dL (1.7-2.3); Osmolality Calculated 298 mOsm/kg (285-295); Potassium 3.7 mmol/L (3.5-5.1); Sodium 142 mmol/L (136-145)
[2022-12-13] MEDS: morphine 4 mg/mL SDV 1 mL IVP (08:12)
--- NOTE | 2022-12-13 08:52 | CT_ITS ---
WS: [id number] CT CHEST ANGIOGRAPHY WITH REFORMATS HISTORY: fall, TECHNIQUE: Contiguous axial images are obtained through the chest during arterial injection of intrav enous contrast. Images are reconstructed to evaluate the pulmonary arteries. MIP imaging also reviewe d. All CT scans at [facility] use at least one of these dose optimization techniques: automat ed exposure control; mA and/or kV adjustment per patient size (includes targeted exams where dose is matched to clinical indication); or iterative reconstruction. CONTRAST: Omnipaque 350; 100 mL IV. DLP: 314.34 mGy.cm COMPARISON: None available. Good opacification of the pulmonary arteries. No filling defects. Normal size aorta. Extensive calcif ication aorta. Normal size pulmonary artery. 9 mm nodule with adjacent atelectasis LEFT upper lobe. Additional 10 mm nodule in the inferior RIGHT major fissure may be fluid. Both of these nodules will need to be further evaluated with serial exami nation. Additional benign granulomata. No mediastinal or hilar adenopathy. Heart is mildly enlarged. No pericardial or pleural effusions. Mo derate-sized hiatal hernia. Prior cholecystectomy. No adrenal mass. Increase in thoracic kyphosis. T1 2 compression fracture identified approximately 30%. CT/CT angio chest PE protcl [id number] IMPRESSION: 1. No pulmonary embolism. 2. No adenopathy. 3. LEFT upper lobe 9 mm pulmonary nodule and a 10 mm nodule along the inferior RIGHT major fissure. Both of these nodules may be further evaluated. Different ial includes early neoplasm versus atelectasis or fluid along the fissure. Yovani mmend follow-up chest CT in 3 months. 4. Moderate size hiatal hernia. 5. Moderate atherosclerosis aorta.
--- NOTE | 2022-12-13 08:52 | USCV_ITS ---
Deirdre Connolly Age: 86 Gender: F : 1935 Exam Date: 12/13/2022 10:26 Ordering Phys: Zaid Monroy MD Technologist: CT Exam Location: [facility] [place]_ Indication: pre op sx eval, swelling PROCEDURES: The venous duplex Doppler examination of both lower extremities was performed in the standard fashion. Bilaterally, the common femoral, superficial femoral, profunda femoral, popliteal, posterior tibial, greater saphenous veins, and the peroneal trunk . FINDINGS: Normal 2-D Doppler and augmentation and compressibility throughout the lower extremity venous structures. Additional imaging through the proximal calf veins also reveals no thrombus. Limited evaluation of the greater saphenous vein is patent with no thrombus. CONCLUSIONS No DVT bilateral lower extremities. Dr. Linda Jackson DO (Electronically Signed) Final Date: 13 December 2022 13:32 S
[2022-12-13] MEDS: iohexol 350 mg/mL 500 mL Btl (per mL) IV (09:17)
[2022-12-13] MEDS: sodium chloride 0.9% 1,000 ML 75 ML IV (09:45)
--- NOTE | 2022-12-13 09:54 | PC.NURSE ---
Patient came back to floor from CT and vitals were stable except for oxygen stats dropping down to 77% on room air. Auscultated lungs and they were clear. Client denies shorrtness of breath or difficult to breath. Blood pressure obtained 120/61. Resp 19. Face flushed and warm, took temp 99.4 [address] patient denies pain. Dr Kramer arrived in the room above reported. verbally stated to place client on 3 liters oxygen nasal cannula. continued to assess patient and is currently making a note and placing orders.
[2022-12-13 10:22] LABS: Troponin T (5th) Once 43 ng/L (0-10)
--- NOTE | 2022-12-13 10:46 | PM.PN ---
Subjective Subjective: This morning requested venous Doppler CTA to rule out PE her D-dimer was extremely high she was requiring 3 L of oxygen, Blood pressure is fluctuating however stable No active chest pain Patient is stating her pain is 5/10 Is not up-to-date with her colonoscopy however mammogram was done in the past Echo showing preserved ejection fraction with increased pressure of right ventricle pulmonary arteries were not visualized She does have mild aortic regurgitation, mild MR mild TR EF 55 to 60% left ventricle systolic function is normal right ventricle systolic pressure 40 to 50 mmHg Patient smoked in the past when she was young about a pack a day she has quit roughly 30 years ago CTA chest showed pulmonary nodules she will need another CT scan within 3 months and close outpatient pulmonary follow-up All of these findings were discussed with the patient and her family this should not delay her surgery Vitals/I&O/Wt Last Vital Signs Temp 99.1 F 12/13/22 10:06 Pulse 89 12/13/22 10:06 Resp 19 H 12/13/22 10:06 BP 121/68 12/13/22 10:06 Pulse Ox 95 12/13/22 10:06 O2 Del Method Nasal Cannula 12/13/22 10:06 O2 Flow Rate 3 12/13/22 10:06 12/12/22 12/13/22 12/13/22 22:59 06:59 14:59 Intake Total 947.5 / 947.5 Output Total 500 / 500 Balance -500 / -500 947.5 / 947.5 Weight last 48 hrs Weight 68.039 kg Physical Exam Narrative: Awake and alert Euvolemic Abdomen soft Pain 5/10 No active chest pain Currently on 3 L GCS 15 Nonfocal neuro exam Patient is drowsy received morphine this morning Systolic murmur appreciated Urinary Catheter Management: Garrett: Cath Placed During This Visit: yes Reason for Continuing Indwelling Catheter: Perioperative Use in Selected Surgeries Urinary Catheter Date of Insertion: 12/12/22 Urinary Catheter Time of Insertion: 15:31 Data 12/13/22 04:06 12/13/22 04:06 A&P Assessment and plan (1) Closed fracture of neck of left femur: (2) D-dimer, elevated: (3) Hypertension: (4) Pulmonary nodule: (5) Hiatal hernia: (6) Compression fracture: Plan Hip fracture Going for surgery today EF is preserved Mild AR, MR TR murmur noted, echo reviewed as well She has preserved ejection fraction I will do serial troponin with EKG but that should not delay her surgery today, EKG no ischemic or infarct changes, High D-dimer :Concern for occult malignancy, pulmonary nodules noted on CTA chest, no signs of PE on CTA chest venous Doppler is pending She is hemodynamically stable Acute hypoxia: Related to hypoventilation after getting opioids, currently on 3 L Family meeting conducted, patient was seen multiple times today We will update general surgery She is n.p.o. 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
[2022-12-13 12:15] LABS: Troponin 5 2HR 59.23 ng/L (0-10)
[2022-12-13 12:19] LABS: Troponin 5 2HR Delta 16.23 ABS# (0-10)
--- NOTE | 2022-12-13 12:46 | ECG_ITS ---
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 Measurements Intervals [place] Rate: 58 P: 91 SD: 194 QRS: -33 QRSD: 130 T: 65 QT: 461 QTc: 457 Interpretive Statements SINUS BRADYCARDIA LEFT AXIS DEVIATION [QRS AXIS < -30] LEFT VENTRICULAR HYPERTROPHY AND ST-T CHANGE [VOLTAGE CRITERIA PLUS ST/T ABNORMALITY] LATERAL MYOCARDIAL INFARCTION , PROBABLY OLD [40+ ms Q WAVE AND/OR ST/T ABNORMALITY IN I/aVL/V5/V6] Compared to ECG 12/12/2022 14:49:23 Left-axis deviation now present Left ventricular hypertrophy now present ST (T wave) deviation now present Sinus rhythm no longer present First degree AV block no longer present Intraventricular conduction delay no longer present Myocardial infarct finding still present Electronically Signed On 12-13-2022 23:32:51 CDT by Tari Langley M.D. [id number]
--- NOTE | 2022-12-13 14:15 | W.PM.OPSUD ---
Surgery/Procedure H&P Update DATE OF PROCEDURE: December 13, 2022 DATE H&P PERFORMED: 12/12/22 CHANGES TO PREVIOUS DOCUMENTATION: None. No change in HPI from consult note yesterday. Patient had no preceding hip pain. No evidence of pathologic lesion is appreciated on normal x-ray imaging. I did speak with the hospitalist who had a concern for potentially an occult malignancy given patient did have an increased D-dimer but CTA of the chest was normal and after my discussion with Dr. Monroy for patient I feel in patient's best interest to not delay patient's care but to proceed with a left hip hemiarthroplasty. Per the hospitalist request I will send the femoral head as well to pathology. We discussed this in detail with patient and family. They understand and agree to proceed with current plan. All questions answered. We will proceed with left hip hemiarthroplasty today. PREOP DIAGNOSIS: Left displaced femoral neck fracture PRIMARY INDICATION FOR PROCEDURE: Left displaced femoral neck fracture PLANNED PROCEDURE: Operation Date: 12/13/22 15:45 Proposed Procedures p Hemiarthroplasty Hip(Left) - Chris Nichols DO
[2022-12-13] MEDS: sodium chloride 0.9% 1,000 ML 30 ML IV (14:30)
[2022-12-13] MEDS: ketorolac 30 mg/mL INJ IVP (14:47)
[2022-12-13] MEDS: acetaminophen 1,000 MG/100 ML PIGGYBACK 400 MG IV (14:47)
--- NOTE | 2022-12-13 14:56 | ANES.PREANE2 ---
Pre-Anesthetic Assessment Height/Weight: Height 1.65 m Weight 68.039 kg Temp Pulse Resp BP Pulse Ox O2 Del Method O2 Flow Rate 98.7 F 62 19 H 108/55 95 Nasal Cannula 3 12/13/22 11:52 12/13/22 11:52 12/13/22 11:52 12/13/22 11:52 12/13/22 11:52 12/13/22 11:52 12/13/22 11:52 Preop Diagnosis: Left displaced femoral neck fracture Operation Date: 12/13/22 15:45 Proposed Procedures p Hemiarthroplasty Hip(Left) - Chris Magdalena, DO Familial anesthetic complications: none Was Beta Vijay taken within 24 hours: N/A Was Clonidine taken within 24 hours: N/A Social No alcohol and No tobacco Exam alert, oriented x 3, clear to auscultation bilaterally and regular rate & rhythm Airway Submandibular: within normal limits Cervical ROM: within normal limits Mallampati: Class II Dentition: false CV/HEM Hypertension Anesthetic Plan ASA status: 3 Anesthesia: Regional (specify below) (SAB) Medications/Allergies Home Medications Medication Instructions Recorded Confirmed Last Taken Type acebutolol 400 mg capsule 400 mg PO BID 08/16/21 12/12/22 12/12/22 09:30 History aspirin 81 mg tablet,delayed 81 mg PO QAM 08/16/21 12/12/22 12/12/22 09:30 History release hydrochlorothiazide 25 mg tablet 25 mg PO QAM 08/16/21 12/12/22 12/12/22 09:30 History sertraline 50 mg tablet 50 mg PO QAM 08/16/21 12/12/22 12/12/22 09:30 History corset brace #1 ea 08/18/21 12/12/22 Unknown Rx incentive spirometer #1 ea 08/18/21 12/12/22 Unknown Rx Allergies Allergy/AdvReac Type Severity Reaction Status Date / Time Penicillins Allergy Unknown Verified 12/12/22 14:04 Current Medications Generic Name Dose Route Start Last Admin Trade Name Freq PRN Reason Stop Dose Admin Sodium Chloride 1,000 mls @ 75 mls/hr 12/12/22 21:00 12/13/22 09:45 Sodium Chloride 0.9% IV 75 mls/hr .[id number] LORELEI Administration Sodium Chloride 1,000 mls @ 30 mls/hr 12/13/22 14:15 12/13/22 14:30 Sodium Chloride 0.9% IV 12/14/22 14:14 30 mls/hr .Q24H LORELEI Administration Morphine Sulfate 4 mg 12/12/22 17:08 12/13/22 08:12 Morphine 4 Mg/Ml Sdv 1 Ml IVP 4 mg Q4H PRN Administration SEVERE PAIN Morphine Sulfate 15 mg 12/12/22 17:08 12/12/22 18:23 Morphine Ir 15 Mg Tablet PO 15 mg Q6H PRN Administration pAIN Ondansetron HCl 4 mg 12/12/22 17:08 12/12/22 18:23 Ondansetron 2 Mg/Ml Sdv 2 Ml IVP 4 mg Q6H PRN Administration NAUSEA AND VOMITING PFSH Anesthesia Medical History No pertinent past medical history Social History Smoking and tobacco status: former smoker Substance/Drug Use: never Data Anesthesia 12/13/22 04:06 12/13/22 04:06 Short CBC 12/12/22 12/13/22 Range/Units 14:24 04:06 WBC 10.5 H 6.2 (4.0-10.0) 10^3/uL Hgb 13.8 13.6 (11.5-15.3) g/dL Hct 42.0 41.1 (37.0-47.0) % MCV 88.8 90.9 (81-99) fl Plt Count 211 162 (130-400) 10^3/cmm Neut % (Auto) 82.4 74.9 % Neut # (Auto) 8.64 H 4.66 (1.8-7.7) 10^3/uL BMP 12/13/22 04:06 Sodium 142 Potassium 3.7 Chloride 100 Carbon Dioxide 34 H BUN 21 Creatinine 0.9 Glucose 111 Calcium 9.1 Cardiac Enzymes 12/13/22 12/13/22 Range/Units 09:47 11:43 Troponin T Gen 5 ng/L 43 H (0-10) ng/L Troponin T 120 Minute 59.23 H (0-10) ng/L Delta Troponin T 16.23 H* (0-10) ABS# Urine 12/12/22 Range/Units 15:20 Urine Color Yellow (Yellow) Urine Appearance Clear (CLEAR) Urine pH 6 (5-7) Ur Specific Spicer 1.015 (1.005-1.030) Urine Protein Neg (Negative) Urine Glucose (UA) Norm (Normal) Urine Ketones Negative (Negative) Urine Nitrate Negative (Negative) Urine Bilirubin Neg (Negative) Ur Leukocyte Esterase Negative (Negative) Blood Bank 12/12/22 22:27 Blood Type O Negative Rho(D) Type Negative Antibody Screen Negative Coags 12/12/22 14:24 D-Dimer 14.51 H Cardiac Studies: No Data to Display
[2022-12-13] MEDS: vancomycin 1,000 MG in sodium chloride 0.9% 250 ML 250 MG IV (15:15)
[2022-12-13] MEDS: clindamycin 600 MG/50 ML PREMIX 100 MG IV ×2 (15:40→22:05)
--- NOTE | 2022-12-13 16:46 | ECG_ITS ---
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 Measurements Intervals [place] Rate: 60 P: 44 NC: 204 QRS: -31 QRSD: 134 T: 56 QT: 376 QTc: 378 Interpretive Statements SINUS RHYTHM WITH OCCASIONAL SUPRAVENTRICULAR PREMATURE COMPLEXES LEFT AXIS DEVIATION [QRS AXIS < -30] INTRAVENTRICULAR CONDUCTION DELAY [130+ ms QRS DURATION] LEFT VENTRICULAR HYPERTROPHY AND ST-T CHANGE [VOLTAGE CRITERIA PLUS ST/T ABNORMALITY] LATERAL MYOCARDIAL INFARCTION , PROBABLY OLD [40+ ms Q WAVE AND/OR ST/T ABNORMALITY IN I/aVL/V5/V6] Compared to ECG 12/13/2022 12:33:21 Intraventricular conduction delay now present Sinus bradycardia no longer present ST (T wave) deviation still present Myocardial infarct finding still present Electronically Signed On 12-13-2022 23:37:39 CDT by Tari Langley M.D. [id number]
[2022-12-13] MEDS: vancomycin 1,000 MG SDV 1000 MG XX (16:48)
--- NOTE | 2022-12-13 17:09 | P.OP_ITS ---
Operative Report Date of procedure: December 13, 2022 Pre-op diagnosis: Preop Diagnosis Left displaced femoral neck fracture Procedure: Post-op diagnosis: Same Procedure done: Left hip?hemiarthroplasty, cemented Implants: Tyrone Accolade C 132 degree femoral stem size 3 Bipolar head 45 mm Femoral head +4 mm offset 8mm distal cement spacer Surgeon: Chris Nichols DO Estimated blood loss: 50mL IV fluids: See anesthesia record Urine output: See anesthesia record Complications: None Findings: See operative report Condition: stable Disposition: floor Brief History: Patient was seen in the emergency department and subsequently admitted after fall.? Patient sustained a right displaced femoral neck fracture.? Patient was subsequently admitted by the hospitalist team for medical management and preoperative clearance and optimization and the orthopedic surgery team was consulted for evaluation and treatment recommendations.? At that point time discussed with patient? treatment options.? We talked about nonoperative versus operative intervention talked about the risk benefits complication alternatives to surgical nonsurgical treatment options.? Risks of surgery were discussed and she understands and agrees to proceed with procedure.? At this point time would recommend a left hip?hemiarthroplasty.? This will offer patient pain control as well as early weightbearing.? Patient was medically optimized and cleared by the primary team she was then taken to the OR.? Patient understands risk benefits complication alternatives with surgical nonsurgical treatment options.? At this point time elects to proceed with left hip?hemiarthroplasty.? All questions answered.? Patient understands agrees with current plan.? All questions answered. Procedure: Patient seen evaluated the preoperative holding area.? Consent was reviewed and signed with patient.? ?Pt was seen evaluated by the anesthesia department.? Once cleared for surgery patient patient was taken back to the operative suite.? Patient was then transported onto the OR table.? pt underwent anesthesia per the anesthesia department.? Once appropriately anesthetized patient was then positioned in lateral decubitus position with the left hip up.? Patient was placed on a pegboard appropriately secured to the bed all bony prominences well- padded.? Next the left lower extremity was then prepped and draped in sterile orthopedic fashion.? Final timeout performed.? Patient received appropriate preoperative antibiotics. A standard posterolateral approach was then made over the lateral aspect of the hip.? Sharp scalpel incision was made through skin and subcutaneous tissue I then utilized a Luciano elevator to mobilize over the fascia.? The fascia was then split longitudinally with electrocautery.? Next a bursectomy was then performed.? I then placed Hohmann underneath the abductors.? The hip was placed under tension with internal rotation.? I then utilizing electrocautery performed a full-thickness release of the short external rotators and capsule in 1 full thick sleeve for lateral repair.? This was then taken down to the lesser trochanter.? Immediately on capsulotomy hematoma was noticed and displaced femoral neck fracture appreciated.? I then placed a Hohmann above and below the neck.? I then utilized an oscillating saw to freshen the cut this was roughly half of a fingerbreadth above the lesser as patient did fracture slightly lower on the neck.? Once this was performed this access was removed with rongeur.? ?I then utilized a corkscrew to remove the head.? This was then subsequently sized and measured to be a 45 mm head size. I then thoroughly irrigated the acetabulum.? A Hohmann was placed anteriorly and thorough inspection of the acetabulum no significant arthritic changes were noted.? I then utilized a rongeur and Bovie to remove the pulvinar.? Once this was performed I then subsequently took my trial 45 mm head and trialed this which had excellent fit and appropriate suction fit noted.? This was then subsequently removed. Once this was performed I irrigated the socket and then turned my attention towards the femoral preparation.? I utilized Bovie and rongeur to remove the soft tissue off of the saddle.? Once this was done a box osteotome followed by a canal finder and? lateralizing rattail rasp was used to appropriately lateralized in the canal.? Next I then subsequently broached to a size 3 Accolade C. [place] femoral stem which had appropriate fixation.? I was able to trial with this and this appeared to be appropriate length with ability to add slight offset if needed once cemented.? Once this was done I then removed the size 3 femoral stem and then subsequently proceeded with standard cementation technique.? Cement was mixed on the back table the final implant was opened and appropriately measurement on distal cement plug to accommodate the cement mantle and femoral stem.? This was set and impacted in place to appropriate depth.? Next I utilized the cement brush thoroughly irrigated the canal and then dry the canal tampon.? Once cement was appropriately mixed and ready for cementation informed anesthesia and they optimize patient's oxygenation cement was then impacted using cement gun and then was subsequently pressurized.?? The femoral stem size 3 was then impacted in place with appropriate anteversion and held into place and all excess cement was removed and allowed to cure once cured I then trialed multiple head sizes.. It was found that a +4mm had excellent leg lengths as well as appropriate shuck, and excellent stability in all planes of motion with no evidence of instability.? At this point this was determined to being my final femoral head size.? This was subsequently dislocated the trial head was then removed the final implant of bipolar head 45 mm with a +4 mm offset was then opened.? The trunnion was then cleaned and dried and this was impacted in place with excellent fixation.? I then reduced the hip this had excellent stability and appropriate leg lengths.? The wound bed was then thoroughly irrigated.? I then utilizing #5 Ethibond suture performed my repair of the capsule and short external rotators through bone tunnels.? ?Wound bed was then thoroughly irrigated,1 gram vanco powder placed in wound bed.? IT band was closed with strata fix suture and the deep subcutaneous and subcutaneous layers were closed with 0 strata fix and 2-0 strata fix.? Skin was then closed reapproximated with morgan.? Silverlon dressing applied.? Patient placed in abduction pillow posterior hip precautions.? pt? was awakened from anesthesia and taken to PACU in stable condition Disposition: Patient taken to PACU in stable condition will receive appropriate discharge directions as well as pain medication DVT prophylaxis postoperatively.? Patient? will return to the floor postoperatively.? Patient will be weightbearing as tolerated to the left lower extremity.? Posterior hip precautions. Abduction pillow in place.? DVT prophylaxis, pain medication, postoperative antibiotics and TXA.? Patient will work with PT/OT and discharge services for discharge planning.? Patient understands agrees with current plan.? All questions answered.? ?patient will? see me in the office in 2 weeks.
--- NOTE | 2022-12-13 17:09 | PM.OP2 ---
Brief Operative Note Date of procedure: 12/13/22 Pre-op diagnosis: Left hip displaced femoral neck fracture Post-op diagnosis: same Procedure Done: Left hip hemiarthroplasty Surgeon: Chris Nichols Estimated blood loss (mL): 50 Complications: none Post-op Plan: Patient taken to PACU in stable condition recovering well. Pain controlled. Will receive appropriate discharge instructions as well as pain medication and DVT prophylaxis postoperatively upon discharge. We will follow-up in the orthopedic office in 2 weeks. Will return to the floor postoperatively will receive postoperative antibiotics postoperative TXA postoperative DVT prophylaxis PT/OT weight-bear as tolerated left lower extremity posterior hip precautions. Internal medicine on board as primary. Condition: stable Disposition: floor Coding Level of Care Code Acute Code for Yang Lopez
--- NOTE | 2022-12-13 17:09 | PM.PACU ---
PACU note Narrative: Patient taken to PACU in stable condition recovering well. Patient still somnolent anesthesia unable to fully assess motor or sensory at this time we will reassess patient in the morning postoperatively. Dressing on in place is clean dry and intact. Distal pulses are palpable left lower extremity warm well perfused. Appropriate leg lengths noted. Exam: somnolent, arousable Disposition: back to floor
--- NOTE | 2022-12-13 17:11 | PC.NURSE ---
Pt arrived to PACU, resting comfortably, denies any pain or nausea at this time. Dressing to left hip C/D/I, left foot p/w/d, cap refill < 3 seconds, good pedal pulse noted, ice pack applied. Pt reports sensation above level L4. SCD to right leg in place and running. Garrett catheter patent and draining.
--- NOTE | 2022-12-13 17:13 | ANE.PACU2 ---
Inpatient post-anesthesia follow up: Airway intact: Yes Vital signs: Temperature 98.7 F Pulse Rate 62 Respiratory Rate 19 Blood Pressure 108/55 Pulse Oximetry 95 Oxygen Delivery Me thod Nasal Cannula Oxygen Flow Rate 3 Fraction of Inspir ed Oxygen Hydration adequate: Yes Nausea and vomiting: No Pain level: 1 Mental status: Baseline
--- NOTE | 2022-12-13 17:23 | XRR_ITS ---
PROCEDURE INFORMATION: Exam: XR Left Hip Exam date and time: 12/13/2022 5:25 PM Age: 86 years old Clinical indication: Hip pain; Left hip; Prior surgery; Surgery date: Post-operative (0-2 days); Surgery type: Holly; Additional info: Post op left holly, do in pacu TECHNIQUE: Imaging protocol: Radiologic exam of the left hip. Views: 2 or 3 views hip with pelvis when performed. COMPARISON: CR XR hip LT 2-3V wo/w pel* [id number] 12/12/2022 2:07 PM FINDINGS: Bones/joints: [id number] right hip osteoarthritis. Soft tissues: Left hip arthroplasty changes in place with postsurgical soft tissue findings. XR/XR hip LT 2-3V wo/w pel* [id number] IMPRESSION: 1. Left hip arthroplasty changes in place with postsurgical soft tissue findings. 2. [id number] right hip osteoarthritis.
[2022-12-13] MEDS: enoxaparin 40 mg/0.4 mL Syringe SUBCUT (19:44)
[2022-12-13 20:15] LABS: Troponin 5 6HR 38.14 ng/L (0-10)
[2022-12-13 20:24] LABS: Troponin 5 6HR Delta -4.86 ng/L (0-12)
[2022-12-13] MEDS: chlorhexidine gluconate 0.12% Btl 473 mL 30 ML MUCOUS MEM (22:02)
[2022-12-13] MEDS: clindamycin 300 MG/50 ML PREMIX 100 MG IV (22:05)
[2022-12-14] VITALS (11 sets, daily range): BP systolic 92–130; BP diastolic 52–71; PULSE 62–111; RESP 15–23; TEMP 36.1–37.6; O2SAT 90–95
[2022-12-14] MEDS: vancomycin 1,000 MG in sodium chloride 0.9% 250 ML 250 MG IV (03:41)
[2022-12-14] MEDS: sodium chloride 0.9% 1,000 ML 75 ML IV (03:42)
[2022-12-14] MEDS: clindamycin 600 MG/50 ML PREMIX 100 MG IV ×2 (04:50→13:47)
[2022-12-14 04:57] LABS: Basophils % 0.1 %; Hematocrit 37.2 % (37.0-47.0); Hemoglobin 12.4 g/dL (11.5-15.3); Lymphocytes # 0.4 10^3/uL (0.8-4.8); Lymphocytes % 5.2 %; Mean Corpuscular HGB Conc 33.3 g/dL (30.0-36.0); Mean Corpuscular Hemoglobin 30.3 pg (28.0-34.0); Mean Platelet Volume 9.9 fL (7.4-10.4); Monocytes # 0.5 10^3/uL (0.2-0.9); Monocytes % 6.4 %; Neutrophils # 7.42 10^3/uL (1.8-7.7); Neutrophils % 87.7 %; Nucleated Red Blood Cells % 0 %; Platelet Count 166 10^3/cmm (130-400); Red Blood Count 4.09 10^6/uL (4.1-5.3); Red Cell Distribution Width 12.1 % (12.1-15.1); White Blood Count 8.5 10^3/uL (4.0-10.0)
[2022-12-14 05:10] LABS: Anion Gap 12.4 (5-19); Blood Urea Nitrogen 15 mg/dL (8-23); Calcium 7.9 mg/dL (8.5-10.5); Carbon Dioxide 30 mmol/L (22-29); Chloride 102 mmol/L (98-107); Creatinine Clr Calc Pharmacy 50.7532; Glucose 137 mg/dL (65-115); Osmolality Calculated 295 mOsm/kg (285-295); Potassium 3.4 mmol/L (3.5-5.1); Sodium 141 mmol/L (136-145)
[2022-12-14] MEDS: clindamycin 300 MG/50 ML PREMIX 100 MG IV ×2 (05:24→14:59)
[2022-12-14] MEDS: acetaminophen 500 mg Tablet PO (05:31)
[2022-12-14] MEDS: sennosides-docusate Tablet 2 TAB PO ×2 (08:11→17:57)
[2022-12-14] MEDS: multivitamin therapeutic Tablet 1 TAB PO (08:11)
[2022-12-14] MEDS: mupirocin oint 22 gm 1 APPLIC NASAL ×2 (08:11→18:00)
[2022-12-14] MEDS: iron polysaccharide complex 150 mg Capsule PO ×2 (08:11→17:57)
[2022-12-14] MEDS: calcium carb-vit d 600mg/400unit 1 Tablet 1 EACH PO ×2 (08:11→17:57)
[2022-12-14] MEDS: TRAMadol 50 mg Tablet PO ×3 (08:12→20:41)
[2022-12-14] MEDS: chlorhexidine gluconate 0.12% Btl 473 mL 30 ML MUCOUS MEM ×3 (08:12→20:44)
--- NOTE | 2022-12-14 08:25 | ECG_ITS ---
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 Measurements Intervals [place] Rate: 108 P: 0 MO: 0 QRS: -32 QRSD: 121 T: 91 QT: 367 QTc: 493 Interpretive Statements ATRIAL FIBRILLATION WITH RAPID VENTRICULAR RESPONSE LEFT AXIS DEVIATION [QRS AXIS < -30] VOLTAGE CRITERIA FOR LVH [MEETS CRITERIA IN ONE OF: R(aVL), S(V1), R(V5), R(V5/V6)+S(V1)] POSSIBLE LATERAL MYOCARDIAL INFARCTION , OF INDETERMINATE AGE [30 ms Q WAVE IN I/aVL/V5/V6] Compared to ECG 12/13/2022 18:11:02 Sinus rhythm no longer present Intraventricular conduction delay no longer present ST (T wave) deviation no longer present Myocardial infarct finding still present Electronically Signed On 12-14-2022 16:02:46 CDT by Óscar Crowder M.D. [email or web address]
[2022-12-14 09:25] LABS: Magnesium 1.6 mg/dL (1.7-2.3); Thyroid Stimulating Hormone 0.61 uIU/mL (0.27-4.20)
[2022-12-14] MEDS: apixaban 5 mg Tablet PO ×2 (09:31→20:41)
[2022-12-14] MEDS: LORazepam 2 mg/mL INJ 1 mL 0.5 MG IVP (09:31)
[2022-12-14] MEDS: dilTIAZem 30 mg Tablet PO ×3 (09:31→20:41)
--- NOTE | 2022-12-14 11:42 | P.PN_ITS ---
Subjective Subjective: CT abdomen pelvis is pending No overnight events This morning patient was experiencing anxiety got Ativan, she went into A-fib RVR for about 3 to 4 hours and then converted to sinus rhythm I started on therapeutic Eliquis dose Vitals/I&O/Wt Last Vital Signs Temp 97.9 F 12/14/22 07:07 Pulse 111 H 12/14/22 08:00 Resp 18 12/14/22 08:00 BP 92/52 12/14/22 07:07 Pulse Ox 95 12/14/22 07:07 O2 Del Method Room Air 12/14/22 08:00 O2 Flow Rate 1 12/13/22 20:00 12/13/22 12/14/22 12/14/22 22:59 06:59 14:59 Intake Total 1260 / 2307.5 1350 / 3657.5 686.25 / 686.25 Output Total 625 / 625 575 / 1200 Balance 635 / 1682.5 775 / 2457.5 686.25 / 686.25 Weight last 48 hrs Weight 68.039 kg Physical Exam Narrative: Patient in supine Currently on room air A-fib without RVR GCS 15 Nonfocal neuro exam Abdomen soft Pleasant and cooperative Urinary Catheter Management: Garrett: Cath Placed During This Visit: yes, but has since been removed by the nurse Reason for Continuing Indwelling Catheter: Other Urinary Catheter Date of Insertion: 12/12/22 Urinary Catheter Time of Insertion: 15:31 Date Urinary Catheter Removed: 12/14/22 Time Urinary Catheter Discontinued: 06:05 Data 12/14/22 04:30 12/14/22 04:30 A&P Assessment and plan (1) Compression fracture: (2) Hiatal hernia: (3) Pulmonary nodule: (4) D-dimer, elevated: (5) Closed fracture of neck of left femur: (6) Hypertension: Plan New onset A-fib Started Eliquis D-dimer was high No DVT or PE I will put on telemetry Hip fracture status post intervention Postop day 1 No postoperative complications Requesting CT abdomen pelvis Disposition plan Home health however decision will be made after PT evaluation today Garrett catheter will be removed Check magnesium and TSH T12 compression fracture, no acute exacerbation Attestations Medical Necessity Statement*: Continue medical management Diagnoses Compression fracture Hiatal hernia K44.9 Pulmonary nodule R91.1 D-dimer, elevated R79.89 Closed fracture of neck of left femur S72.002A Hypertension I10
--- NOTE | 2022-12-14 12:50 | PM.PN ---
Subjective Subjective: Patient seen evaluated lunchtime. Patient is recovering well postoperatively she is gotten up with therapy she sitting up at bedside family is present. She will work with therapy. Plan for discharge is likely care home facility. We will continue to work with case management internal medicine on board as primary. Weight-bear as tolerate left lower extremity and she does understand posterior hip precautions. All questions been answered. Vitals/I&O/Wt Last Vital Signs Temp 97.7 F 12/15/22 12:00 Pulse 61 12/15/22 14:00 Resp 16 12/15/22 12:00 BP 128/71 12/15/22 12:00 Pulse Ox 99 12/15/22 12:00 O2 Del Method Room Air 12/15/22 08:00 O2 Flow Rate 1 12/15/22 08:00 Physical Exam Narrative: Examination left hip: Patient's left lower extremity is appropriate leg lengths. She is able to wiggle her toes plantarflex and dorsiflex ankle. Sensations intact light touch distally. Distal pulses are palpable. Daniel dressing on in place to the left hip with good seal and minimal saturation. Patient able to tolerate gentle hip range of motion with no pain or discomfort. Urinary Catheter Management: Garrett: Cath Placed During This Visit: yes, but has since been removed by the nurse Reason for Continuing Indwelling Catheter: Other Urinary Catheter Date of Insertion: 12/12/22 Urinary Catheter Time of Insertion: 15:31 Date Urinary Catheter Removed: 12/14/22 Time Urinary Catheter Discontinued: 06:05 Data 12/15/22 04:20 12/15/22 04:20 Other Labs: Hemoglobin 12.4 on 12/14/2022 Xray Ortho: My impression: X-rays demonstrate appropriate leg lengths with stable left hip hemiarthroplasty with appropriate cement mantle with no evidence of periprosthetic fracture or dislocation or hardware loosening or failure. A&P Assessment and plan (1) Closed fracture of neck of left femur: Plan Weight-bear as tolerated left lower extremity Posterior hip precautions PT/OT Daniel dressing on in place with good seal leave on in place for 7 days unless become saturated Pain control A.m. labs reviewed Postoperative x-rays reviewed Patient's completed postoperative antibiotics as well as postoperative TXA DVT prophylaxis?patient did go into A-fib postoperatively and patient started on Eliquis with internal medicine this will be her DVT prophylaxis postoperatively. Patient stable from orthopedic standpoint. Discharge instructions in patient's chart we will follow-up in the orthopedic office in 2 weeks. Daniel dressing instructions are in chart. Patient and family understand agree with current plan. All questions answered. Attestations Medical Necessity Statement*: Postop left hip hemiarthroplasty ongoing care Coding Level of Care Code Acute Code for Chg Fwd Diagnoses Closed fracture of neck of left femur S72.002A Time Spent (min) 20
--- NOTE | 2022-12-14 16:00 | CT_ITS ---
WS: [id number] CT ABDOMEN AND PELVIS NONCONTRAST HISTORY: occult malignancy TECHNIQUE: Imaging performed through the abdomen and pelvis. Coronal and sagittal reformats are submi tted. All CT scans at [facility] use at least one of these dose optimization techniques: auto mated exposure control; mA and/or kV adjustment per patient size (includes targeted exams where dose is matched to clinical indication); or iterative reconstruction. DLP: 614.40 mGy.cm COMPARISON: None available. Lower thorax: Small amount of fluid or atelectasis at the RIGHT lung base. Benign granuloma LEFT lowe r lobe. Mild enlargement of the heart. Moderate hiatal hernia. Liver: Normal size liver. No mass or bile duct dilatation. Gallbladder: Prior cholecystectomy. Pancreas: Normal size and attenuation. Normal pancreatic duct. No pancreatitis or mass. Spleen: Normal size with granulomata. Adrenal glands: Normal. No mass. Right kidney: Mild perinephric stranding. No obstruction. There is a very small amount of fluid adjac ent to the kidney. Nonobstructing 5 mm calcification in the upper pole. Left kidney: Mild perinephric stranding. No obstruction. Aorta: Mild atherosclerosis abdominal aorta with no aneurysm. No free fluid, intraperitoneal air or significant lymphadenopathy. GI tract: Minimally distended stomach. No small bowel obstruction. Moderate constipation. The appendi x is not definitely identified. No secondary findings of appendicitis. Distal colonic diverticulosis without acute diverticulitis. Abdominal wall: Small foci of air from subcutaneous injections. Pelvis: Atrophic uterus. No pelvic mass identified. Artifact through the pelvis from patient's recent total hip arthroplasty. Osseous structures: Recent postsurgical changes surrounding the LEFT hip. LEFT hip arthroplasty. T12 compression fracture by 30%. CT/CT abdomen pelvis wo con [id number] IMPRESSION: 1. No acute abdominal or pelvic abnormalities are identified. 2. No ascites or adenopathy. 3. Prior cholecystectomy. 4. Moderate size hiatal hernia. 5. 30% T12 compression fracture. 6. Recent LEFT hip arthroplasty.
[2022-12-14] MEDS: LORazepam 0.5 mg Tablet PO ×2 (16:30→21:58)
[2022-12-15] MEDS: TRAMadol 50 mg Tablet PO ×2 (03:24→15:06)
[2022-12-15] MEDS: dilTIAZem 30 mg Tablet PO ×2 (03:24→09:38)
[2022-12-15] MEDS: ondansetron 2 mg/ML SDV 2 mL 4 MG IVP (03:26)
[2022-12-15 03:38] VITALS: BP 132/61; PULSE 77; RESP 17; TEMP 37; O2SAT 91
[2022-12-15 04:42] LABS: Basophils % 0.2 %; Eosinophils # 0.1 10^3/uL (0.0-0.8); Eosinophils % 1.4 %; Hematocrit 33.8 % (37.0-47.0); Hemoglobin 11.3 g/dL (11.5-15.3); Lymphocytes # 0.9 10^3/uL (0.8-4.8); Lymphocytes % 9.6 %; Mean Corpuscular HGB Conc 33.4 g/dL (30.0-36.0); Mean Corpuscular Hemoglobin 30.3 pg (28.0-34.0); Mean Corpuscular Volume 90.6 fl (81-99); Mean Platelet Volume 10.7 fL (7.4-10.4); Monocytes # 0.8 10^3/uL (0.2-0.9); Monocytes % 8.4 %; Neutrophils # 7.49 10^3/uL (1.8-7.7); Neutrophils % 80.1 %; Nucleated Red Blood Cells % 0 %; Platelet Count 149 10^3/cmm (130-400); Red Blood Count 3.73 10^6/uL (4.1-5.3); Red Cell Distribution Width 12.4 % (12.1-15.1); White Blood Count 9.4 10^3/uL (4.0-10.0)
[2022-12-15 04:58] LABS: Alanine Aminotransferase 78 U/L (0-33); Albumin Level 3.6 g/dL (3.5-5.2); Alkaline Phosphatase 73 U/L (35-105); Aspartate Amino Transferase 56 U/L (0-32); Blood Urea Nitrogen 19 mg/dL (8-23); Calcium 8.6 mg/dL (8.5-10.5); Carbon Dioxide 32 mmol/L (22-29); Chloride 98 mmol/L (98-107); Creatinine Clr Calc Pharmacy 50.7532; Globulin 1.7 g/dL (1.3-4.6); Glucose 102 mg/dL (65-115); Osmolality Calculated 286 mOsm/kg (285-295); Sodium 137 mmol/L (136-145); Total Protein 5.3 g/dL (6.6-8.7)
[2022-12-15 05:48] VITALS: PULSE 78
[2022-12-15 08:00] VITALS: BP 120/62; PULSE 59; PULSE 78; RESP 15; RESP 16; TEMP 36.9; O2SAT 90; O2SAT 97
--- NOTE | 2022-12-15 09:12 | PC.SOCIAL ---
IMM update IMM updated with patient and family. Verbalized an understanding. Copy Pg 2 provided. Initialled, dated, timed, and placed in chart.
[2022-12-15] MEDS: multivitamin therapeutic Tablet 1 TAB PO (09:38)
[2022-12-15] MEDS: calcium carb-vit d 600mg/400unit 1 Tablet 1 EACH PO (09:38)
[2022-12-15] MEDS: potassium chloride ER 20 mEq Tablet 40 MEQ PO (09:38)
[2022-12-15] MEDS: iron polysaccharide complex 150 mg Capsule PO (09:38)
[2022-12-15] MEDS: sennosides-docusate Tablet 2 TAB PO (09:38)
[2022-12-15] MEDS: sertraline 50 mg Tablet PO (09:38)
[2022-12-15] MEDS: mupirocin oint 22 gm 1 APPLIC NASAL (09:39)
[2022-12-15] MEDS: chlorhexidine gluconate 0.12% Btl 473 mL 30 ML MUCOUS MEM (09:39)
[2022-12-15] MEDS: magnesium sulfate premix 2 GM/50 ML PIGGYBACK IV (09:40)
[2022-12-15 09:51] VITALS: PULSE 67
[2022-12-15] MEDS: apixaban 5 mg Tablet PO (10:32)
--- NOTE | 2022-12-15 11:13 | PM.PN ---
Subjective Subjective: Patient had a rough night as per the family, she was agitated could not sleep, he was given Ativan she was very drowsy this morning However able to answer my questions Awaiting placement CT abdomen pelvis did not show any signs of malignancy Patient will need CT chest within 3 months for pulmonary nodules, family is aware I will add low-dose Seroquel for tonight Discontinue IV fluids Vitals/I&O/Wt Last Vital Signs Temp 98.5 F 12/15/22 08:00 Pulse 67 12/15/22 09:51 Resp 15 12/15/22 08:00 BP 120/62 12/15/22 08:00 Pulse Ox 97 12/15/22 08:00 O2 Del Method Room Air 12/15/22 08:00 O2 Flow Rate 1 12/13/22 20:00 12/14/22 12/15/22 12/15/22 22:59 06:59 14:59 Intake Total 50 / 1026.25 120 / 120 Balance 50 / 1026.25 120 / 120 Physical Exam Narrative: Patient is awake and alert Nonfocal neuro exam Lower extremity no edema GCS 15 Requires intermittent oxygen currently on 2 L for hypoventilation Abdomen soft No active distress S1, S2 Able to answer questions 15 lethargic Family at the bedside Urinary Catheter Management: Garrett: Cath Placed During This Visit: yes, but has since been removed by the nurse Reason for Continuing Indwelling Catheter: Other Urinary Catheter Date of Insertion: 12/12/22 Urinary Catheter Time of Insertion: 15:31 Date Urinary Catheter Removed: 12/14/22 Time Urinary Catheter Discontinued: 06:05 Data 12/15/22 04:20 12/15/22 04:20 A&P Assessment and plan (1) Compression fracture: (2) Hiatal hernia: (3) Pulmonary nodule: (4) D-dimer, elevated: (5) Closed fracture of neck of left femur: (6) Hypertension: (7) Hypokalemia: Plan Hip fracture after mechanical fall at [facility] No syncope Echo from [facility] reviewed which showed MR TR AR Preserved ejection fraction Status post ORIF, postop day 2 Patient developed A-fib for about 2 hours only on 12/14 I started her on Eliquis considering high D-dimer however no signs of PE or DVT [id number]: [address] abdomen pelvis unremarkable High D-dimer could be related to fat embolism? Patient never had screening colonoscopy, mammograms were not remarkable for any malignancy as per the Pulmonary nodules, patient will need CT chest after 3 months because they were greater than 8 mm Remote history of smoking Sundowning Add Seroquel for tonight Hypokalemia: Repleted Garrett catheter removed Awaiting placement PT recommended rehab Acute hypoxia related to hypoventilation wean off oxygen Attestations Medical Necessity Statement*: Awaiting placement Diagnoses Compression fracture Hiatal hernia K44.9 Pulmonary nodule R91.1 D-dimer, elevated R79.89 Closed fracture of neck of left femur S72.002A Hypertension I10 Hypokalemia E87.6
--- NOTE | 2022-12-15 11:53 | P.DS_ITS ---
Discharge Providers Date of Admission: 12/12/22 15:58 Date of Discharge: December 15, 2022 Attending Provider at Admission: Zaid Monroy MD Attending Provider at Discharge: Zaid Monroy MD Primary Care Provider: Lamberto Padilla MD Diagnoses at Discharge Discharge Diagnosis (1) Compression fracture: Status: Acute Permanent problem details: T12 after accident (2) Hiatal hernia: Status: Acute (3) Pulmonary nodule: Status: Acute (4) D-dimer, elevated: Status: Acute (5) Closed fracture of neck of left femur: Status: Acute (6) Hypertension: Status: Acute (7) Hypokalemia: Status: Acute Reason for Visit Reason for Visit: poss broken LT hip Hospital Course Hospital Course 86-year female who was admitted after mechanical fall at [facility], she was diagnosed with hip fracture went for ORIF by Dr. Nichols, postoperatively patient went into A-fib RVR for about 2 hours likely related to electrolyte imbalance, patient was started on metoprolol and Eliquis for her Long Vascor of 4, has bled score is 2, Garrett catheter was removed patient did well with PT who recommended rehab, her magnesium and potassium repleted she remained hemodynamically stable, currently she is in sinus rhythm, being discharged with stable hemodynamics to jail[facility]rehab For high D-dimer we pursued malignancy work-up however CTA chest showed pulmonary nodule which needs further evaluation with repeat CT scan within 3 months, family is aware, CT abdomen pelvis unremarkable patient has not gone for screening colonoscopies in the past concern is related to fat embolism related high D-dimer which is diagnosis of exclusion Eliquis can be discontinued after 2 months if she remains in sinus rhythm Her A-fib was very short-term only 2 hours and it seemed related to hypokalemia and hypomagnesemia Troponin with negative delta echo from [facility] showed MR TR mild AR preserved ejection fraction Right ventricular pressure was high however we have not seen any evidence of PE or DVT Physical Exam Narrative: Awake and alert GCS 15 Currently on room air Pleasant and cooperative Family at the bedside Urinary Catheter Management: Garrett: Cath Placed During This Visit: yes, but has since been removed by the nurse Reason for Continuing Indwelling Catheter: Other Urinary Catheter Date of Insertion: 12/12/22 Urinary Catheter Time of Insertion: 15:31 Date Urinary Catheter Removed: 12/14/22 Time Urinary Catheter Discontinued: 06:05 Discharge Data Studies Completed and Pending Completed Studies During Hospitalization Category Date Time Status CT abdomen pelvis wo con [id number] Routine Cat Scan 12/14/22 16:00 Completed CTA PE [CT angio chest PE protcl [id number]] Stat Cat Scan 12/13/22 08:52 Completed XR chest 1V portable [id number] Stat Exams 12/12/22 14:29 Completed XR femur LT min 2V* [id number] Stat Exams 12/12/22 14:29 Completed XR hip LT 2-3V wo/w pel* [id number] Routine Exams 12/13/22 17:23 Completed XR hip LT 2-3V wo/w pel* [id number] Stat Exams 12/12/22 13:58 Completed XR knee LT 3V* [id number] Stat Exams 12/12/22 14:29 [place] [id number] Routine Ultrasound 12/13/22 08:52 Completed Pending at discharge Category Date Time Status Basic Metabolic Panel AM LABS Lab 12/16/22 04:00 Ordered Complete Blood Count w/Auto AM LABS Lab 12/16/22 04:00 Ordered Magnesium AM LABS Lab 12/16/22 04:00 Ordered Pathology: Surgical [PTH] Routine Pth 12/13/22 16:52 Received Radiology Impressions Chest X-Ray 12/12/22 14:29 IMPRESSION: No acute findings. Femur X-Ray 12/12/22 14:29 IMPRESSION: 1. Subcapital fracture left femoral neck 2. Otherwise negative exam of the left femur Knee X-Ray 12/12/22 14:29 IMPRESSION: 1. Severe osteoarthritis 2. No acute findings. 3. Supra patella bursa effusion Chest CTA 12/13/22 08:52 IMPRESSION: 1. No pulmonary embolism. 2. No adenopathy. 3. LEFT upper lobe 9 mm pulmonary nodule and a 10 mm nodule along the inferior RIGHT major fissure. Both of these nodules may be further evaluated. Differential includes early neoplasm versus atelectasis or fluid along the fissure. Recommend follow-up chest CT in 3 months. 4. Moderate size hiatal hernia. 5. Moderate atherosclerosis aorta. Hip/Pelvis X-Ray 12/13/22 17:23 IMPRESSION: 1. Left hip arthroplasty changes in place with postsurgical soft tissue findings. 2. Plhk-sk-nzgherht right hip osteoarthritis. Abdomen/Pelvis CT 12/14/22 16:00 IMPRESSION: 1. No acute abdominal or pelvic abnormalities are identified. 2. No ascites or adenopathy. 3. Prior cholecystectomy. 4. Moderate size hiatal hernia. 5. 30% T12 compression fracture. 6. Recent LEFT hip arthroplasty. Laboratory Results WBC 9.4 10^3/uL (4.0-10.0) 12/15/22 04:20 RBC 3.73 10^6/uL (4.1-5.3) L 12/15/22 04:20 Hgb 11.3 g/dL (11.5-15.3) L 12/15/22 04:20 Hct 33.8 % (37.0-47.0) L 12/15/22 04:20 MCV 90.6 fl (81-99) 12/15/22 04:20 MCH 30.3 pg (28.0-34.0) 12/15/22 04:20 MCHC 33.4 g/dL (30.0-36.0) 12/15/22 04:20 RDW 12.4 % (12.1-15.1) 12/15/22 04:20 Plt Count 149 10^3/cmm (130-400) 12/15/22 04:20 MPV 10.7 fL (7.4-10.4) H 12/15/22 04:20 Neut % (Auto) 80.1 % 12/15/22 04:20 Lymph % (Auto) 9.6 % 12/15/22 04:20 [place] % (Auto) 8.4 % 12/15/22 04:20 Eos % (Auto) 1.4 % 12/15/22 04:20 Baso % (Auto) 0.2 % 12/15/22 04:20 Neut # (Auto) 7.49 10^3/uL (1.8-7.7) 12/15/22 04:20 Lymph # (Auto) 0.9 10^3/uL (0.8-4.8) 12/15/22 04:20 [place] # (Auto) 0.8 10^3/uL (0.2-0.9) 12/15/22 04:20 Eos # (Auto) 0.1 10^3/uL (0.0-0.8) 12/15/22 04:20 Baso # (Auto) 0.0 10^3/uL (0.0-0.1) 12/15/22 04:20 Nucleated RBC % (auto) 0 % 12/15/22 04:20 Nucleated RBCs # 0.0 /100WBC 12/15/22 04:20 D-Dimer 14.51 ug/mIFEU (0-0.59) H 12/12/22 14:24 Sodium 137 mmol/L (136-145) 12/15/22 04:20 Potassium 3.0 mmol/L (3.5-5.1) L 12/15/22 04:20 Chloride 98 mmol/L (98-107) 12/15/22 04:20 Carbon Dioxide 32 mmol/L (22-29) H 12/15/22 04:20 Anion Gap 10.0 (5-19) 12/15/22 04:20 BUN 19 mg/dL (8-23) 12/15/22 04:20 Creatinine 0.8 mg/dL (0.5-0.9) 12/15/22 04:20 GFR Calculation Not Reportable 12/15/22 04:20 Glucose 102 mg/dL (65-115) 12/15/22 04:20 Calculated Osmolality 286 mOsm/kg (285-295) 12/15/22 04:20 Calcium 8.6 mg/dL (8.5-10.5) 12/15/22 04:20 Magnesium 1.6 mg/dL (1.7-2.3) L 12/14/22 04:30 Total Bilirubin 1.0 mg/dL (0.15-1.2) 12/15/22 04:20 AST 56 U/L (0-32) H 12/15/22 04:20 ALT 78 U/L (0-33) H 12/15/22 04:20 Alkaline Phosphatase 73 U/L (35-105) 12/15/22 04:20 Troponin T Gen 5 ng/L 43 ng/L (0-10) H 12/13/22 09:47 Troponin T 120 Minute 59.23 ng/L (0-10) H 12/13/22 11:43 Delta Troponin T 16.23 ABS# (0-10) H* 12/13/22 11:43 Troponin T Hi Sens 6Hr 38.14 ng/L (0-10) H 12/13/22 19:45 Troponin T Hi Sens 6Hr Delta -4.86 ng/L (0-12) L 12/13/22 19:45 Total Protein 5.3 g/dL (6.6-8.7) L 12/15/22 04:20 Albumin 3.6 g/dL (3.5-5.2) 12/15/22 04:20 Globulin 1.7 g/dL (1.3-4.6) 12/15/22 04:20 Vitamin B12 353 pg/mL (232-1245) 12/12/22 14:24 TSH 0.61 uIU/mL (0.27-4.20) 12/14/22 04:30 Urine Color Yellow (Yellow) 12/12/22 15:20 Urine Appearance Clear (CLEAR) 12/12/22 15:20 Urine pH 6 (5-7) 12/12/22 15:20 Ur Specific [place] 1.015 (1.005-1.030) 12/12/22 15:20 Urine Protein Neg (Negative) 12/12/22 15:20 Urine Glucose (UA) Norm (Normal) 12/12/22 15:20 Urine Ketones Negative (Negative) 12/12/22 15:20 Urine Blood Neg (Negative) 12/12/22 15:20 Urine Nitrate Negative (Negative) 12/12/22 15:20 Urine Bilirubin Neg (Negative) 12/12/22 15:20 Urine Urobilinogen Norm mg/dL (Negative) 12/12/22 15:20 Ur Leukocyte Esterase Negative (Negative) 12/12/22 15:20 Blood Type O Negative 12/12/22 22:27 Rho(D) Type Negative 12/12/22 22:27 Antibody Screen Negative 12/12/22 22:27 Vitals Last Vital Signs Temp 98.5 F 12/15/22 08:00 Pulse 67 12/15/22 09:51 Resp 15 12/15/22 08:00 BP 120/62 12/15/22 08:00 Pulse Ox 97 12/15/22 08:00 O2 Del Method Room Air 12/15/22 08:00 O2 Flow Rate 1 12/13/22 20:00 Discharge Plan Discharge Patient Disposition: Home Condition: Stable Prescriptions: New oxycodone 5 mg Tablet 5 mg PO Q4H PRN (Reason: Moderate Pain) Qty: 10 0RF sennosides-docusate sodium [Stool Softener-Laxative] 8.6-50 mg Tablet 2 tab PO BID Qty: 10 0RF Eliquis 5 mg Tablet 5 mg PO BID@0900,2100 Qty: 120 0RF quetiapine 25 mg Tablet 25 mg PO BEDTIME Qty: 3 0RF metoprolol tartrate 25 mg Tablet 12.5 mg PO BID@0900,2100 Qty: 60 0RF potassium chloride 10 mEq tablet extended release 10 meq PO DAILY Qty: 3 0RF Continued (DME) incentive spirometer See Rx Instructions .Route .MEDSUPPLY Qty: 1 0RF Rx Instructions: As directed (DME) corset brace See Rx Instructions .Route .MEDSUPPLY Qty: 1 0RF Rx Instructions: As directed acebutolol 400 mg capsule 400 mg PO BID sertraline 50 mg tablet 50 mg PO QAM Discontinued aspirin [Aspir-81] 81 mg Tablet,Delayed Release (Dr/Ec) 81 mg PO QAM hydrochlorothiazide 25 mg tablet 25 mg PO QAM Discharge Orders: Discharge Order (Routine); Ordered 12/15/22 Ordered By: Zaid Monroy Referrals: Lamberto Padilla MD [Primary Care Provider] - Chris Nichols DO [Physician] - 2 weeks Discharge Diet: Advance as tolerated Discharge Activity: Increase activity as tolerated Patient Instructions: Opioid Safety Activity Restrictions/Additional Instructions: Orthopedic discharge instructions: Keep sami dressing on in place for 7 days postoperatively. After this may remove dressing clean incision with warm soapy water pat dry and redress with a dry sterile bandage. Ice as needed for pain and swelling Weight-bear as tolerated to left lower extremity Posterior hip precautions (do not cross legs avoid hip flexion past 90 degrees and internal rotation) Sleep with abduction pillow in place Supplement with Citracal vitamin D Take pain medication as prescribed Take antinausea medication as needed Take blood thinner (Eliquis as prescribed) to prevent blood clots Follow-up with Dr. Nichols in the office in 2 weeks Contact the office for any questions or concerns Discharge Attestations Time Spent in Discharge Care*: greater than 30 min Quality Metrics Clinical Quality Measures [ No reported AMI, CVA or VTE this stay] Coding Level of Care Code Acute Code for Chg Fwd Diagnoses Compression fracture Hiatal hernia K44.9 Pulmonary nodule R91.1 D-dimer, elevated R79.89 Closed fracture of neck of left femur S72.002A Hypertension I10 Hypokalemia E87.6
[2022-12-15 12:00] VITALS: BP 128/71; PULSE 60; RESP 16; TEMP 36.5; O2SAT 99
[2022-12-15 14:00] VITALS: PULSE 61
--- NOTE | 2022-12-15 14:09 | PC.NURSE ---
Called report to Nicole Naik LPN at [facility]
[2022-12-15 14:20] LABS: SARS Covid-2 Antigen negative (Negative)
[2022-12-15] MEDS: acetaminophen 500 mg Tablet PO (15:06)
== END 2022-12-15 15:45 | disposition skilled nursing facility (03) | DRG 522 ==
LOC: ER 15:57 → MEDSURG 15:59
PROVIDERS: Student in an Organized Health Care Education/Training Program; Admitting Provider Internal Medicine; Emergency Provider Family Medicine; PCP Family Medicine; Visit Provider Internal Medicine
PROC: 0SRS0J9 Replacement of Left Hip Joint, Femoral Surface with Synthetic Substitute, Cemented, Open Approach (ICD-10-PCS; CPT 27125; principal; 2022-12-13 15:45)
DX: S72.012A Unspecified intracapsular fracture of left femur, initial encounter for closed fracture (principal); I97.191 Other postprocedural cardiac functional disturbances following other surgery; W01.0XXA Fall on same level from slipping, tripping and stumbling without subsequent striking against object, initial encounter; Y92.89 Other specified places as the place of occurrence of the external cause; S22.088D Other fracture of T11-T12 vertebra, subsequent encounter for fracture with routine healing; X58.XXXD Exposure to other specified factors, subsequent encounter; K44.9 Diaphragmatic hernia without obstruction or gangrene; R91.8 Other nonspecific abnormal finding of lung field; I10 Essential (primary) hypertension; E87.6 Hypokalemia; E83.42 Hypomagnesemia; Z87.891 Personal history of nicotine dependence; I08.3 Combined rheumatic disorders of mitral, aortic and tricuspid valves; F41.9 Anxiety disorder, unspecified
CPT/HCPCS: 36415; 51702; 71045; 71275; 73502; 73552; 73562; 74176; 80048; 80053; 81003; 82607; 83735; 84443; 84484; 85025; 85378; 86850; 86900; 87426; 88305; 88311; 93005; 93970; 96372; 96374; 96375; 97110; 97162; 97166; 97530; 97535; 99285; C1713; C1776; J0131; J1100; J1650; J1885; J2060; J2270; J2405; J2550; J3370; J3475; J3490; J7030; J7050; Q9967

== ENCOUNTER → 2023-01-02 13:08 | Outpatient (BNVA) | payer MEDICARE, MEDICAID, SELFPAY | PROVIDERS: PCP Family Medicine; Visit Provider Nurse Practitioner Family | DX: S72.002A Fracture of unspecified part of neck of left femur, initial encounter for closed fracture; X58.XXXA Exposure to other specified factors, initial encounter; Z98.890 Other specified postprocedural states | CPT/HCPCS: 73502; 99024 ==

== ENCOUNTER → 2023-02-13 11:49 | Outpatient (BNVA) | payer MEDICARE, MEDICAID, SELFPAY | PROVIDERS: PCP Family Medicine; Visit Provider Physician Assistant | DX: Z96.642 Presence of left artificial hip joint (principal); Z98.890 Other specified postprocedural states | CPT/HCPCS: 73502; 99024 ==

== ENCOUNTER 2023-03-15 15:53 | Emergency (ER) | payer MEDICARE, SELFPAY ==
[2023-03-15 15:55] VITALS: BP 164/74; PULSE 70; RESP 16; TEMP 36.8; O2SAT 94; BMI 24.1
--- NOTE | 2023-03-15 16:10 | XRR_ITS ---
PROCEDURE INFORMATION: Exam: XR Right Hand Exam date and time: 03/15/2023 4:17 PM Age: 87 years old Clinical indication: Injury or trauma; Fall; Blunt trauma (contusions or hematomas); Hand; Right TECHNIQUE: Imaging protocol: Radiologic exam of the right hand. Views: 3 or more views. COMPARISON: No relevant prior studies available. FINDINGS: Bones/joints: Moderate to severe diffuse interphalangeal joint ,1st carpometacarpal joint and STT joint osteoarthritis. Soft tissues: Mild triangle fibrocartilage chondrocalcinosis. XR/XR hand RT min 3V* [id number] IMPRESSION: 1. Negative for fracture or dislocation. 2. Moderate to severe diffuse interphalangeal joint ,1st carpometacarpal joint and STT joint osteoarthritis. 3. Mild triangle fibrocartilage chondrocalcinosis.
--- NOTE | 2023-03-15 16:10 | CTR_ITS ---
PROCEDURE INFORMATION: Exam: CT Head Without Contrast Exam date and time: 03/15/2023 4:54 PM Age: 87 years old Clinical indication: Injury or trauma; Fall; Blunt trauma (contusions or hematomas) TECHNIQUE: Imaging protocol: Computed tomography of the head without contrast. Radiation optimization: All CT scans at this facility use at least one of these dose optimization techniques: automated exposure control; mA and/or kV adjustment per patient size (includes targeted exams where dose is matched to clinical indication); or iterative reconstruction. REPORTING DATA: Count of CT and Cardiac NM exams in prior 12 months: This patient has received 2 known CTs and 0 known cardiac nuclear medicine studies in the 12 months prior to the current study. COMPARISON: No relevant prior studies available. RADIATION DOSE METRICS: Total DLP (mGy-cm): 1063 FINDINGS: Brain: Large amount of diffuse white matter disease likely reflecting chronic microvascular ischemic changes. Cerebral ventricles: No ventriculomegaly. Paranasal sinuses: Visualized sinuses are unremarkable. No fluid levels. Mastoid air cells: Visualized mastoid air cells are well aerated. Bones/joints: Unremarkable. No acute fracture. Soft tissues: Unremarkable. CT/CT head wo con* [id number] IMPRESSION: 1. Negative for intracranial hemorrhage or mass effect. 2. Large amount of diffuse white matter disease likely reflecting chronic microvascular ischemic changes.
--- NOTE | 2023-03-15 16:10 | XRR_ITS ---
PROCEDURE INFORMATION: Exam: XR Right Wrist Exam date and time: 03/15/2023 4:19 PM Age: 87 years old Clinical indication: Injury or trauma; Fall; Blunt trauma (contusions or hematomas); Wrist; Right TECHNIQUE: Imaging protocol: Radiologic exam of the right wrist. Views: 3 or more views. 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 Mild triangle fibrocartilage chondrocalcinosis. Soft tissues: Normal. XR/XR wrist RT min 3V* [id number] IMPRESSION: 1. 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 Mild triangle fibrocartilage chondrocalcinosis. 3. Negative for fracture or dislocation.
--- NOTE | 2023-03-15 16:53 | ED_ITS ---
HPI - Fall General: Chief Complaint: Fall Stated Complaint: fall- right hand, head injury Time Seen by Provider: 03/15/23 16:10 Source: patient Mode of arrival: ambulatory History of Present Illness: 87-year-old female presents emergency room after a fall. 2 days ago she fell she slipped and fell while she was outside checking her propane tank. She has significant bruising to her right hand and some swelling she bumped her head but she did that as she was trying to get up she has not had any headaches has not had any vomiting or diarrhea. She was previously on blood thinners but has been off for a couple of weeks. She not having chest or abdominal pain at this time MD complaint: fall Associated symptoms-after fall: Denies abdominal pain, chest pain or neck pain Review of Systems Const: Denies: fever(s) or chills Card: Denies: chest pain Resp: Denies: dyspnea GI: Denies: abdominal pain : Denies: dysuria, urinary frequency or urinary urgency Musc: Denies: neck pain or back pain Skin/Breast: Denies: rash PFSH ED PFSH: Medical History Closed fracture of neck of left femur Compression fracture T12 after accident D-dimer, elevated Hiatal hernia Hypertension Hypokalemia No pertinent past medical history Pulmonary nodule Social History Smoking and tobacco/nicotine status: former use of tobacco/nicotine Substance/Drug Use: never Physical Exam Const: COMMON NORMALS: no acute distress GENERAL APPEARANCE: cooperative and comfortable ORIENTATION/CONSCIOUSNESS: Yes awake, Yes oriented to person, Yes oriented to place and Yes oriented to time HENMT: COMMON NORMALS: normocephalic, atraumatic and hearing grossly normal bilaterally HEAD & SCALP: normocephalic and atraumatic Resp: COMMON NORMALS: normal respiratory effort, No retractions, No use of accessory muscles and clear to auscultation bilaterally AUSCULTATION: clear to auscultation bilaterally Cardio: COMMON NORMALS: regular rate, regular rhythm and No murmurs present (Cardio) RATE: regular rate RHYTHM: regular rhythm GI: COMMON NORMALS: Soft to palpation and No hepatosplenomegaly present AUSCULTATION: Yes normoactive bowel sounds PALPATION: Yes Soft to palpation, No Tenderness to palpation present (GI), No Guarding due to palpation present (GI) and Yes No hepatosplenomegaly present Extremity: COMMON NORMALS: normal to inspection, capillary refill normal, no clubbing, cyanosis or edema, no calf tenderness and no pedal edema Neuro: SENSORIUM/ORIENTATION: Yes oriented to person, Yes oriented to place and Yes oriented to time Skin: COMMON NORMALS: no rashes or lesions noted GENERAL SKIN EXAM: no rashes or lesions noted Course Vital Signs: Vital signs: Vital Signs Temperature 98.2 F 03/15/23 15:55 Pulse Rate 70 03/15/23 15:55 Respiratory Rate 16 03/15/23 15:55 Blood Pressure 164/74 03/15/23 15:55 Pulse Oximetry 94 03/15/23 15:55 Oxygen Delivery Me thod Room Air 03/15/23 15:55 MDM - Fall Medical Decision Making Imaging reviewed no acute findings. Discharge patient home recheck with primary care as needed Medical Records I reviewed the patient's medical records. Lab Data I reviewed the patient's lab results. Radiology Impressions Hand X-Ray 03/15/23 16:10 IMPRESSION: 1. Negative for fracture or dislocation. 2. Moderate to severe diffuse interphalangeal joint ,1st carpometacarpal joint and STT joint osteoarthritis. 3. Mild triangle fibrocartilage chondrocalcinosis. Head CT 03/15/23 16:10 IMPRESSION: 1. Negative for intracranial hemorrhage or mass effect. 2. Large amount of diffuse white matter disease likely reflecting chronic microvascular ischemic changes. Wrist X-Ray 03/15/23 16:10 IMPRESSION: 1. 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 Mild triangle fibrocartilage chondrocalcinosis. 3. Negative for fracture or dislocation. All radiology interpretation(s) finalized by discharge Discharge Plan Discharge Patient Disposition: Home Clinical Impression: Fracture of wrist Condition: Stable Prescriptions: No Action (DME) incentive spirometer See Rx Instructions .Route .MEDSUPPLY Qty: 1 0RF Rx Instructions: As directed (DME) corset brace See Rx Instructions .Route .MEDSUPPLY Qty: 1 0RF Rx Instructions: As directed sucralfate 1 gram tablet 1 g PO BID PRN (DME) volar right wrist See Rx Instructions .Route .MEDSUPPLY Qty: 1 0RF Rx Instructions: As directed (DME) right medial offloader brace See Rx Instructions .Route .MEDSUPPLY Qty: 1 0RF Rx Instructions: As directed meloxicam 15 mg tablet 15 mg PO DAILY 30 Days Qty: 30 0RF Stool Softener-Laxative 8.6-50 mg Tablet 2 tab PO BID Qty: 10 0RF metoprolol tartrate 25 mg Tablet 12.5 mg PO BID@0900,2100 Qty: 60 0RF acebutolol 400 mg capsule 400 mg PO BID sertraline 50 mg tablet 50 mg PO QAM Discharge Orders: Discharge ED (Routine); Ordered 03/15/23 Ordered By: Sekou Moncada Referrals: Lamberto Padilla MD [Primary Care Provider] - Discharge Diet: Usual diet Discharge Activity: Limit activity as instructed Patient Instructions: Opioid Safety, Pain Management Activity Restrictions/Additional Instructions: Thank you for choosing [facility] for your healthcare needs today. Please realize this is an emergency room and that we are providing you with a medical screening exam and this may not be complete and all inclusive of all the testing and or work up that you may need to determine your ailment or severity of your illness. It is very important that you follow up as instructed or that you return to the Emergency Department should you have concerns or if your condition changes or worsens in any way. Case management make follow-up arrangements with orthopedics Coding Level of Care Code ED Barback for Yang Lopez
--- NOTE | 2023-03-16 02:30 | DCPLANNER ---
Sent message to Ortho for follow up on Rt wrist pain.
== END 2023-03-15 18:16 | disposition home or self-care (01) ==
PROVIDERS: Emergency Provider Family Medicine; PCP Family Medicine
DX: S62.101A Fracture of unspecified carpal bone, right wrist, initial encounter for closed fracture (principal); I10 Essential (primary) hypertension; Z87.891 Personal history of nicotine dependence; M11.231 Other chondrocalcinosis, right wrist; W01.0XXA Fall on same level from slipping, tripping and stumbling without subsequent striking against object, initial encounter
CPT/HCPCS: 29125; 70450; 73110; 73130; 99284

== ENCOUNTER → 2023-03-20 08:27 | Outpatient (BNVA) | payer MEDICARE, SELFPAY | PROVIDERS: PCP Family Medicine; Visit Provider Physician Assistant | DX: M17.0 Bilateral primary osteoarthritis of knee; S62.101A Fracture of unspecified carpal bone, right wrist, initial encounter for closed fracture; W19.XXXA Unspecified fall, initial encounter; Z46.89 Encounter for fitting and adjustment of other specified devices | CPT/HCPCS: 20610; 73130; 73502; 73560; 73565; 97760; 99213; J3301; L1851; L3982 ==

== ENCOUNTER 2023-03-20 11:08 | Outpatient (CLI) | payer MEDICARE, SELFPAY | END 2023-03-20 11:09 | disposition home or self-care (01) | LOC: SPT 11:09 | PROVIDERS: PCP Family Medicine; Visit Provider Physician Assistant | DX: Z46.89 Encounter for fitting and adjustment of other specified devices (principal); M17.0 Bilateral primary osteoarthritis of knee; S62.101A Fracture of unspecified carpal bone, right wrist, initial encounter for closed fracture; W19.XXXA Unspecified fall, initial encounter | CPT/HCPCS: 20610; 97760; 99213; J3301; L1851; L3982 ==

== ENCOUNTER 2023-03-27 12:17 | Emergency (ER) | payer MEDICARE, MEDICAID, SELFPAY ==
[2023-03-27 12:32] VITALS: BP 203/76; PULSE 59; RESP 16; TEMP 36.8; O2SAT 94; BMI 24.9
--- NOTE | 2023-03-27 12:44 | ECG_ITS ---
[facility] Test Date: 2023-03-27 Pat Name: Deirdre Connolly Department: Room: Gender: Female Postal Sorting Officer: : 1935 Requested By: José Luis Trejo Order Number: [id number] [place] MD: Tari Langley M.D. Measurements Intervals Paulina Rate: 58 P: 90 GA: 174 QRS: -22 QRSD: 116 T: 73 QT: 436 QTc: 428 Interpretive Statements SINUS BRADYCARDIA LEFT VENTRICULAR HYPERTROPHY AND ST-T CHANGE [VOLTAGE CRITERIA PLUS ST/T ABNORMALITY] LATERAL MYOCARDIAL INFARCTION , OF INDETERMINATE AGE [40+ ms Q WAVE AND/OR ST/T ABNORMALITY IN I/aVL/V5/V6] Compared to ECG 12/14/2022 08:32:54 ST (T wave) deviation now present Atrial fibrillation no longer present Left-axis deviation no longer present Myocardial infarct finding still present Electronically Signed On 03-27-2023 23:19:34 COMMERCIAL PROJECT MANAGER by Tari Langley M.D. [id number]
[2023-03-27 13:10] LABS: Basophils % 0.2 %; Eosinophils # 0.1 10^3/uL (0.0-0.8); Hematocrit 41.3 % (36-47); Lymphocytes # 0.8 10^3/uL (0.8-4.8); Lymphocytes % 7.4 %; Mean Corpuscular HGB Conc 31.2 g/dL (30-55); Mean Corpuscular Hemoglobin 28.7 pg (27-33); Mean Platelet Volume 10.1 fL (7.4-10.4); Monocytes # 0.9 10^3/uL (0.2-0.9); Monocytes % 8.6 %; Neutrophils # 8.47 10^3/uL (1.8-7.7); Neutrophils % 82.4 %; Nucleated Red Blood Cells % 0 %; Platelet Count 216 10^3/cmm (157-399); Red Blood Count 4.49 10^6/uL (3.85-5.65); Red Cell Distribution Width 12.7 % (12.1-15.1); White Blood Count 10.27 10^3/uL (3.29-11.43)
[2023-03-27 13:22] LABS: Alanine Aminotransferase 80 U/L (0-33); Albumin Level 4.4 g/dL (3.5-5.2); Alkaline Phosphatase 121 U/L (35-105); Anion Gap 12.8 (5-19); Aspartate Amino Transferase 82 U/L (0-32); Blood Urea Nitrogen 16 mg/dL (8-23); Calcium 9.3 mg/dL (8.5-10.5); Carbon Dioxide 29 mmol/L (22-29); Chloride 102 mmol/L (98-107); Globulin 2.6 g/dL (1.3-4.6); Glucose 92 mg/dL (65-115); Osmolality Calculated 291 mOsm/kg (285-295); Potassium 3.8 mmol/L (3.5-5.1); Sodium 140 mmol/L (136-145); Total Bilirubin 0.6 mg/dL (0.15-1.2)
--- NOTE | 2023-03-27 14:31 | XR_ITS ---
WS: [id number] Exam: XR chest 1V portable [id number] Date/Time of Exam: 03/27/2023 2:32 PM Reason For Exam: dyspnea/cough Comparison 12/12/2022. Mild Pawan glass infiltrate seen in the LEFT lower lobe as well as the LEFT retrocardiac region. Re maining lung zones are clear. Scattered calcified granulomas. No pleural effusion or pneumothorax. No rmal cardiomediastinal silhouette. Bony structures are intact. IMPRESSION: 1. Mild LEFT lower lobe infiltrate that may represent developing pneumonia.
--- NOTE | 2023-03-27 14:42 | ED_ITS ---
HPI - General Adult General: Chief complaint: General Medical Stated complaint: BP issues Time Seen by Provider: 03/27/23 14:29 Source: patient Mode of arrival: ambulatory Limitations: no limitations History of Present Illness: Patient is an 87-year-old female with past medical history of hypertension who presents to the emergency department accompanied by daughter complaining of high blood pressure onset today. Per daughter, she states that the patient called her today and said that she needed to present to the emergency department due to feeling like she was going to pass out and some head pressure. She states that she gets the symptoms when her blood pressure is high, which she states she does not record daily. She is on metoprolol and acebutolol and states that she has taken these medications as prescribed. She denies any changes in vision, peripheral numbness or weakness, chest pain, palpitations, any breathing difficulties, or any other symptoms. The patient lives by herself and ambulates with a cane. 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 Patient's daughter states that she is unsure if the patient is taking her medications as prescribed. Onset (ago): day(s) Associated symptoms: Reports headache(s); Deny chest pain, confusion, cough, diaphoresis, decreased appetite, dyspnea, fevers/chills, malaise, nausea, rash, palpitations, seizures, short of breath, syncope, vomiting or weakness Review of Systems Const: Reports: other (Hypertension); Denies: fever(s), chills, change in weight, fatigue, malaise or diaphoresis Eyes: Denies: change in vision or blurry vision Card: Reports: pre-syncope; Denies: chest pain, palpitations, edema, swelling of feet/ankles, lightheadedness or syncope Resp: Denies: dyspnea or productive cough GI: Denies: abdominal pain, nausea, vomiting, hematemesis, diarrhea, change in bowel habits or hematochezia Musc: Denies: neck pain, back pain or extremity pain Skin/Breast: Denies: rash Neuro: Reports: headache(s); Denies: confusion PFS ED PFSH: Medical History Closed fracture of neck of left femur Compression fracture T12 after accident D-dimer, elevated Hiatal hernia Hypertension Hypokalemia No pertinent past medical history Pulmonary nodule Social History Smoking and tobacco/nicotine status: former use of tobacco/nicotine Substance/Drug Use: never Physical Exam Const: COMMON NORMALS: no acute distress GENERAL APPEARANCE: cooperative and comfortable ORIENTATION/CONSCIOUSNESS: Yes awake, Yes oriented to person, Yes oriented to place and Yes oriented to time HENMT: COMMON NORMALS: normocephalic, atraumatic and oropharynx normal HEAD & SCALP: normocephalic and atraumatic Eye: COMMON NORMALS: Equal, round and reactive pupils present, EOMs intact bilaterally, conjunctivae normal and no scleral icterus CONJUNCTIVA: Yes conjunctivae normal PUPIL: Yes Equal, round and reactive pupils present Neck/C-Spine: COMMON NORMALS: full ROM and no JVD Lymph: LYMPHATIC: no lymphadenopathy noted and no lymphedema noted Resp: COMMON NORMALS: normal respiratory effort, No retractions, No use of accessory muscles and clear to auscultation bilaterally AUSCULTATION: clear to auscultation bilaterally Cardio: COMMON NORMALS: no JVD, regular rate, regular rhythm and No murmurs present (Cardio) RATE: regular rate RHYTHM: regular rhythm GI: COMMON NORMALS: Soft to palpation and No hepatosplenomegaly present AUSCULTATION: Yes normoactive bowel sounds PALPATION: Yes Soft to palpation, No Tenderness to palpation present (GI), No Guarding due to palpation present ( GI) and Yes No hepatosplenomegaly present Extremity: COMMON NORMALS: normal to inspection, capillary refill normal, no clubbing, cyanosis or edema and no calf tenderness NARRATIVE EXTREMITY EXAM: Trace pitting edema bilaterally Neuro: COMMON NORMALS: moves all extremities, no focal motor deficits and no sensory deficits noted SENSORIUM/ORIENTATION: Yes oriented to person, Yes oriented to place and Yes oriented to time SPEECH: speech normal MOTOR EXAM: 5/5 motor strength present throughout and no tremor noted Skin: COMMON NORMALS: no rashes or lesions noted GENERAL SKIN EXAM: no rashes or lesions noted Course Vital Signs: Vital signs: Vital Signs Temperature 97.9 F 03/27/23 17:42 Pulse Rate 68 03/27/23 17:42 Respiratory Rate 16 03/27/23 17:42 Blood Pressure 150/72 03/27/23 17:42 Pulse Oximetry 98 11/14/23 17:42 Oxygen Delivery Me thod Room Air 03/27/23 14:46 MDM - General Adult Medical Decision Making Labs and imaging reviewed EKG and troponins unremarkable no evidence of acute coronary syndrome at this time. Patient is feeling better add amlodipine 5 mg daily. Chest x-ray incidental finding of mild early pneumonia she has had a little bit of a cough although some nonproductive will start on doxycycline 100 p.o. twice daily for 10 days follow-up with primary care doctor within the next week if not improving. Medical Records I reviewed the patient's medical records. Lab Data I reviewed the patient's lab results. 03/27/23 12:58 03/27/23 12:58 Laboratory Results WBC 10.27 10^3/uL (3.29-11.43) 03/27/23 12:58 RBC 4.49 10^6/uL (3.85-5.65) 03/27/23 12:58 Hgb 12.90 g/dL (11.27-16.99) 03/27/23 12:58 Hct 41.3 % (36-47) 03/27/23 12:58 MCV 92.0 fl (85-98) 03/27/23 12:58 MCH 28.7 pg (27-33) 03/27/23 12:58 MCHC 31.2 g/dL (30-55) 03/27/23 12:58 RDW 12.7 % (12.1-15.1) 03/27/23 12:58 Plt Count 216 10^3/cmm (157-399) 03/27/23 12:58 MPV 10.1 fL (7.4-10.4) 03/27/23 12:58 Neut % (Auto) 82.4 % 03/27/23 12:58 Lymph % (Auto) 7.4 % 03/27/23 12:58 [place] % (Auto) 8.6 % 03/27/23 12:58 Eos % (Auto) 1.0 % 03/27/23 12:58 Baso % (Auto) 0.2 % 03/27/23 12:58 Neut # (Auto) 8.47 10^3/uL (1.8-7.7) H 03/27/23 12:58 Lymph # (Auto) 0.8 10^3/uL (0.8-4.8) 03/27/23 12:58 [place] # (Auto) 0.9 10^3/uL (0.2-0.9) 03/27/23 12:58 Eos # (Auto) 0.1 10^3/uL (0.0-0.8) 03/27/23 12:58 Baso # (Auto) 0.0 10^3/uL (0.0-0.1) 03/27/23 12:58 Nucleated RBC % (auto) 0 % 03/27/23 12:58 Nucleated RBCs # 0.0 /100WBC 03/27/23 12:58 Sodium 140 mmol/L (136-145) 03/27/23 12:58 Potassium 3.8 mmol/L (3.5-5.1) 03/27/23 12:58 Chloride 102 mmol/L (98-107) 03/27/23 12:58 Carbon Dioxide 29 mmol/L (22-29) 03/27/23 12:58 Anion Gap 12.8 (5-19) 03/27/23 12:58 BUN 16 mg/dL (8-23) 03/27/23 12:58 Creatinine 0.7 mg/dL (0.5-0.9) 03/27/23 12:58 GFR Calculation Not Reportable 03/27/23 12:58 Glucose 92 mg/dL (65-115) 03/27/23 12:58 Calculated Osmolality 291 mOsm/kg (285-295) 03/27/23 12:58 Calcium 9.3 mg/dL (8.5-10.5) 03/27/23 12:58 Total Bilirubin 0.6 mg/dL (0.15-1.2) 03/27/23 12:58 AST 82 U/L (0-32) H 03/27/23 12:58 ALT 80 U/L (0-33) H 03/27/23 12:58 Alkaline Phosphatase 121 U/L (35-105) H 03/27/23 12:58 Troponin T Baseline 24 ng/L (0-10) H 03/27/23 12:18 Troponin T 120 Minute 21.51 ng/L (0-10) H 03/27/23 16:20 Delta Troponin T -2.49 ABS# (0-10) L 03/27/23 16:20 Total Protein 7.0 g/dL (6.6-8.7) 03/27/23 12:58 Albumin 4.4 g/dL (3.5-5.2) 03/27/23 12:58 Globulin 2.6 g/dL (1.3-4.6) 03/27/23 12:58 Urine Color Dark yellow (Yellow) 03/27/23 13:50 Urine Appearance Sl hazy (CLEAR) A 03/27/23 13:50 Urine pH 5 (5-7) 03/27/23 13:50 Ur Specific [place] 1.020 (1.005-1.030) 03/27/23 13:50 Urine Protein Trace (Negative) 03/27/23 13:50 Urine Glucose (UA) Norm (Normal) 03/27/23 13:50 Urine Ketones 1+ (Negative) H 03/27/23 13:50 Urine Blood Neg (Negative) 03/27/23 13:50 Urine Nitrate Negative (Negative) 03/27/23 13:50 Urine Bilirubin Neg (Negative) 03/27/23 13:50 Urine Urobilinogen Norm mg/dL (Negative) 03/27/23 13:50 Ur Leukocyte Esterase Negative (Negative) 03/27/23 13:50 Urine RBC 0-4 /hpf (0-2) H 03/27/23 13:50 Urine WBC 0-4 /hpf (0-5) H 03/27/23 13:50 Ur Squamous Epith Cells 10-15 /hpf (0-5) H 03/27/23 13:50 Amorphous Sediment Not Reportable 03/27/23 13:50 Urine Bacteria Trace /hpf (NONE) 03/27/23 13:50 Hyaline Casts 0-4 /lpf H 03/27/23 13:50 Urine Mucus Trace /hpf 03/27/23 13:50 All radiology interpretation(s) finalized by discharge Discharge Plan Discharge Patient Disposition: Home Clinical Impression: Benign essential HTN, Pneumonia Condition: Stable Prescriptions: New amlodipine 5 mg tablet 5 mg PO DAILY Qty: 30 0RF doxycycline hyclate 100 mg capsule 100 mg PO BID 10 Days Qty: 20 0RF No Action (DME) incentive spirometer See Rx Instructions .Route .MEDSUPPLY Qty: 1 0RF Rx Instructions: As directed (DME) corset brace See Rx Instructions .Route .MEDSUPPLY Qty: 1 0RF Rx Instructions: As directed sucralfate 1 gram tablet 1 g PO BID PRN (Reason: upset stomache) (DME) volar right wrist See Rx Instructions .Route .MEDSUPPLY Qty: 1 0RF Rx Instructions: As directed (DME) right medial offloader brace See Rx Instructions .Route .MEDSUPPLY Qty: 1 0RF Rx Instructions: As directed metoprolol tartrate 25 mg Tablet 12.5 mg PO BID@0900,2100 Qty: 60 0RF acebutolol 400 mg capsule 400 mg PO BID sertraline 50 mg tablet 50 mg PO QAM Discharge Orders: Discharge ED (Routine); Ordered 03/27/23 Ordered By: Sekou Moncada Referrals: Lamberto Padilla MD [Primary Care Provider] - Discharge Diet: Usual diet Discharge Activity: Increase activity as tolerated Patient Instructions: Opioid Safety, Pain Management Activity Restrictions/Additional Instructions: Thank you for choosing [facility] for your healthcare needs today. Please realize this is an emergency room and that we are providing you with a medical screening exam and this may not be complete and all inclusive of all the testing and or work up that you may need to determine your ailment or severity of your illness. It is very important that you follow up as instructed or that you return to the Emergency Department should you have concerns or if your condition changes or worsens in any way. You are seen today with elevated blood pressure. Your cardiac enzymes and EKG were normal chest x-ray did show early signs of pneumonia recommend he start doxycycline 100 mg twice daily for 10 days for this. Your blood pressure was also elevated improved with the medications you are given continue to take your current medications in addition to this at 5 mg a day of amlodipine recheck with your primary care doctor within the next week. Coding Level of Care Code ED Leader Assembler for Yang Lopez
[2023-03-27 14:46] VITALS: BP 193/78; PULSE 62; RESP 17; O2SAT 96
[2023-03-27 14:46] LABS: Add Urine Microscopic? YES; Bacteria Urine TRACE /hpf; Bilirubin Urine Neg (Negative); Blood Urine Neg (Negative); Glucose Urine UA Norm (Normal); Ketones Urine 1+ (Negative); Leukocyte Esterase Urine Negative (Negative); Mucus Urine TRACE /hpf; Nitrate Urine Negative (Negative); Protein Urine Trace (Negative); RBC Urine 0-4 /hpf (0-2); Urine Appearance SL Hazy (CLEAR); Urine Color Dark Yellow (Yellow); Urobilinogen Urine Norm (Negative); WBC Urine 0-4 /hpf (0-5); pH Urine 5 (5-7)
[2023-03-27 14:47] LABS: Add Urine Culture? No; Hyaline Casts Urine 0-4 /lpf
[2023-03-27] MEDS: amlodipine 10 mg Tablet PO (14:54)
[2023-03-27] MEDS: hyDRALAzine 20 mg/mL INJ 1 mL IVP (14:54)
[2023-03-27 16:52] LABS: Troponin(5th) Baseline 24 ng/L (0-10)
[2023-03-27 16:58] LABS: Troponin 5 2HR 21.51 ng/L (0-10)
[2023-03-27 17:00] LABS: Troponin 5 2HR Delta -2.49 ABS# (0-10)
[2023-03-27 17:42] VITALS: BP 150/72; PULSE 68; RESP 16; TEMP 36.6; O2SAT 98
== END 2023-03-27 17:44 | disposition home or self-care (01) ==
PROVIDERS: Emergency Medicine; Emergency Provider Family Medicine; PCP Family Medicine
DX: I10 Essential (primary) hypertension (principal); J18.9 Pneumonia, unspecified organism; Z87.891 Personal history of nicotine dependence
CPT/HCPCS: 36415; 71045; 80053; 81001; 84484; 85025; 93005; 96374; 99285; J0360

== ENCOUNTER → 2023-04-12 08:07 | Outpatient (BNVA) | payer MEDICARE, MEDICAID, SELFPAY | PROVIDERS: PCP Family Medicine; Visit Provider Physician Assistant | DX: S62.101D Fracture of unspecified carpal bone, right wrist, subsequent encounter for fracture with routine healing; X58.XXXD Exposure to other specified factors, subsequent encounter; Z46.89 Encounter for fitting and adjustment of other specified devices; M17.0 Bilateral primary osteoarthritis of knee | CPT/HCPCS: 73110; 97760; 99213; L1851 ==

== ENCOUNTER 2023-04-12 10:16 | Outpatient (CLI) | payer MEDICARE, MEDICAID, SELFPAY | END 2023-04-12 10:17 | disposition home or self-care (01) | LOC: SPT 10:17 | PROVIDERS: PCP Clinical Nurse Specialist Adult Health; Visit Provider Physician Assistant | DX: Z46.89 Encounter for fitting and adjustment of other specified devices (principal); M17.0 Bilateral primary osteoarthritis of knee | CPT/HCPCS: 97760; L1851 ==

== ENCOUNTER 2023-04-27 06:00 | Outpatient (CLI) | payer MEDICARE, MEDICAID, SELFPAY | END 2023-04-27 06:01 | disposition home or self-care (01) | PROVIDERS: PCP Clinical Nurse Specialist Adult Health; Visit Provider Physician Assistant | DX: Z46.89 Encounter for fitting and adjustment of other specified devices (principal); S62.101D Fracture of unspecified carpal bone, right wrist, subsequent encounter for fracture with routine healing; X58.XXXD Exposure to other specified factors, subsequent encounter | CPT/HCPCS: 99213 ==

== ENCOUNTER → 2023-04-27 08:19 | Outpatient (BNVA) | payer MEDICARE, MEDICAID, SELFPAY | PROVIDERS: PCP Clinical Nurse Specialist Adult Health; Visit Provider Physician Assistant | DX: S62.101A Fracture of unspecified carpal bone, right wrist, initial encounter for closed fracture (principal); W19.XXXA Unspecified fall, initial encounter | CPT/HCPCS: 73110 ==

== ENCOUNTER 2023-07-24 09:25 | Outpatient (CLI) | payer MEDICARE, MEDICAID, SELFPAY ==
--- NOTE | 2023-07-24 09:30 | CT_ITS ---
WS: [id number] CT chest w con* [id number] HISTORY: follow up on pulmonary nodules TECHNIQUE: Axial imaging performed through the thorax. Coronal and sagittal reformats are submitted. All CT scans at [facility] use at least one of these dose optimization techniques: automated exposure control; mA and/or kV adjustment per patient size (includes targeted exams where dose is mat ched to clinical indication); or iterative reconstruction. CONTRAST: Omnipaque 350; 100 mL IV. DLP: 257.48 mGy.cm COMPARISON: 12/13/2022 Lungs and central airway: Lungs are hyperinflated. Changes of chronic emphysema. Mild hazy attenuatio n is stable. 8 mm nodule reidentified in the LEFT upper lobe is unchanged. There are a few additional scattered nodules and fissural nodules and calcified nodules which are stable. No new or increasing size of any nodule or mass. There are 2 very small nodules in the RIGHT middle lobe which are stable. Pleura: Normal. No pleural effusion. Heart and pericardium: Mild cardiomegaly. Mediastinum and brenden: Calcified lymph nodes. There are no enlarging lymph nodes. Vessels: Moderate atherosclerotic changes thoracic aorta. Normal size pulmonary artery. Chest wall and lower neck: No soft tissue masses. Upper abdomen: Small hiatal hernia. Prior cholecystectomy. Mild cortical thinning upper pole of each kidney. No adrenal mass. Osseous structures: Increase in thoracic kyphosis. Osteopenia. Stable compression fracture T12. IMPRESSION: 1. No interval change in appearance or size of the LEFT upper and RIGHT middle lobe nodule since 12/13. These are probably inflammatory. No pneumonia. If additional imaging and follow-up as clinical ly thought necessary follow-up can be performed in 6 to 12 months. 2. Chronic emphysema. 3. Moderate atherosclerosis aorta and mild cardiomegaly. 4. Prior cholecystectomy.
[2023-07-24 10:17] LABS: Blood Urea Nitrogen 16 mg/dL (8-23)
[2023-07-24] MEDS: iohexol 350 mg/mL 500 mL Btl (per mL) IV (10:38)
== END 2023-07-24 09:26 | disposition home or self-care (01) ==
LOC: RAD 09:25
PROVIDERS: PCP Clinical Nurse Specialist Adult Health; Visit Provider Clinical Nurse Specialist Adult Health
DX: R91.8 Other nonspecific abnormal finding of lung field (principal); J43.9 Emphysema, unspecified; I70.0 Atherosclerosis of aorta; I51.7 Cardiomegaly; Z90.49 Acquired absence of other specified parts of digestive tract
CPT/HCPCS: 71260; 82565; 84520; Q9967

== ENCOUNTER → 2023-07-27 10:44 | Outpatient (BNVA) | payer MEDICARE, MEDICAID, SELFPAY | PROVIDERS: PCP Clinical Nurse Specialist Adult Health; Visit Provider Physician Assistant | DX: M17.4 Other bilateral secondary osteoarthritis of knee | CPT/HCPCS: 20610; 99213; J3301 ==

== ENCOUNTER 2023-10-16 23:20 | Emergency (ER) | payer MEDICARE, MEDICAID, SELFPAY ==
[2023-10-16 23:24] VITALS: BP 170/74; PULSE 65; RESP 16; TEMP 36.7; O2SAT 96
--- NOTE | 2023-10-16 23:38 | CTR_ITS ---
PROCEDURE INFORMATION: Exam: CT Head Without Contrast Exam date and time: 10/17/2023 12:10 AM Age: 87 years old Clinical indication: Injury or trauma; Fall; Additional info: Fall/head inj TECHNIQUE: Imaging protocol: Computed tomography of the head without contrast. Radiation optimization: All CT scans at this facility use at least one of these dose optimization techniques: automated exposure control; mA and/or kV adjustment per patient size (includes targeted exams where dose is matched to clinical indication); or iterative reconstruction. COMPARISON: CT head wo con* [id number] 03/15/2023 4:54 PM RADIATION DOSE METRICS: Total DLP (mGy-cm): 933.3 FINDINGS: Brain: Normal. No hemorrhage. Unremarkable white matter. No mass effect. Cerebral ventricles: No ventriculomegaly. Paranasal sinuses: Visualized sinuses are unremarkable. No fluid levels. Mastoid air cells: Visualized mastoid air cells are well aerated. Bones: Unremarkable. No acute fracture. Soft tissues: Right periorbital subcutaneous hematoma. CT/CT head wo con* [id number] IMPRESSION: 1. Negative for intracranial hemorrhage or mass effect 2. Right periorbital subcutaneous hematoma.
--- NOTE | 2023-10-16 23:38 | XRR_ITS ---
PROCEDURE INFORMATION: Exam: XR Right Elbow Exam date and time: 10/16/2023 11:48 PM Age: 87 years old Clinical indication: Injury or trauma; Fall; Other: Pain; Additional info: Fall/deformity TECHNIQUE: Imaging protocol: Radiologic exam of the right elbow. Views: 3 or more views. COMPARISON: CR (UP EX, ) 03/15/2023 4:19 PM FINDINGS: Bones/joints: Transverse fracture through the olecranon process of the proximal ulna. There is significant distraction of the fracture fragments, measuring up to about 17 mm. Soft tissues: Evidence for prominent right elbow joint effusion/hemarthrosis. XR/XR elbow RT min 3V* [id number] IMPRESSION: 1. Significantly distracted fracture of the olecranon process of the proximal right ulna. 2. Prominent right elbow joint effusion/hemarthrosis.
--- NOTE | 2023-10-16 23:38 | CTR_ITS ---
PROCEDURE INFORMATION: Exam: CT Cervical Spine Without Contrast Exam date and time: 10/17/2023 12:10 AM Age: 87 years old Clinical indication: Injury or trauma; Fall; Additional info: Fall/head inj TECHNIQUE: Imaging protocol: Computed tomography of the cervical spine without contrast. Radiation optimization: All CT scans at this facility use at least one of these dose optimization techniques: automated exposure control; mA and/or kV adjustment per patient size (includes targeted exams where dose is matched to clinical indication); or iterative reconstruction. COMPARISON: CT head wo con* [id number] 10/17/2023 12:10 AM RADIATION DOSE METRICS: Total DLP (mGy-cm): 417.6 FINDINGS: Bones/joints: Multilevel severe disc space narrowing and productive degenerative endplate changes throughout the spine. C3 and C4 vertebral body sclerotic bony lesions, indeterminate, consider correlation with a whole body nuclear medicine bone scan. C2-C3: No significant disc bulge or herniation. No severe spinal canal stenosis. No significant neural foraminal narrowing. C3-C4: No significant disc bulge or herniation. No severe spinal canal stenosis. No significant neural foraminal narrowing. C4-C5: No significant disc bulge or herniation. No severe spinal canal stenosis. No significant neural foraminal narrowing. C5-C6: No significant disc bulge or herniation. No severe spinal canal stenosis. No significant neural foraminal narrowing. C6-C7: No significant disc bulge or herniation. No severe spinal canal stenosis. No significant neural foraminal narrowing. C7-T1: No significant disc bulge or herniation. No severe spinal canal stenosis. No significant neural foraminal narrowing. Lungs: Lung apices are normal. Soft tissues: Unremarkable. CT/CT cervical spin wo con* [id number] IMPRESSION: 1. Negative for fracture or dislocation. 2. Multilevel severe disc space narrowing and productive degenerative endplate changes throughout the spine. 3. C3 and C4 vertebral body sclerotic bony lesions, indeterminate, consider correlation with a whole body nuclear medicine bone scan.
--- NOTE | 2023-10-16 23:38 | XRR_ITS ---
PROCEDURE INFORMATION: Exam: XR Right Knee Exam date and time: 10/16/2023 11:57 PM Age: 87 years old Clinical indication: Injury or trauma; Fall; Other: Pain; Additional info: Fall/knee pain TECHNIQUE: Imaging protocol: Radiologic exam of the right knee. Views: 3 views. COMPARISON: CR XR knees AP WB w BI lmt ORTH 03/20/2023 8:34 AM FINDINGS: Bones/joints: There is no definite acute fracture or dislocation. If symptoms persist, follow-up imaging in several days may be useful to exclude an occult or subtle fracture. Severe arthritic changes in all knee compartments, similar to the prior exam. Soft tissues: Soft tissue fullness in the suprapatellar and popliteal regions may indicate evidence of joint effusion. A Sherwood's/popliteal cyst might also be considered. XR/XR knee RT 3V* [id number] IMPRESSION: 1. No definite acute fracture or dislocation. 2. Suspected joint effusion, see above. 3. Other findings discussed above.
--- NOTE | 2023-10-16 23:39 | W.ED.FALL ---
Documented by User: JOSEPH Weinstein 10/17/23 14:24 HPI - Fall General: Chief Complaint: Fall Stated Complaint: Fall,right arm pain Time Seen by Provider: 10/16/23 23:27 Source: patient and family Mode of arrival: ambulatory Limitations: no limitations History of Present Illness: Patient is an 87-year-old female brought into the emergency department by daughter due to a fall onset 2199. Patient reportedly lives home alone, and went to turn off the light in her room when she tripped and fell to the ground, striking her head and elbow. She arrives with large hematoma to the right periorbital region as well as a large deformity to the right olecranon. She states she has been falling quite often recently, and had a fall last year that resulted in right hip fracture/surgery. She had no symptoms prior to falling today, stating it was simply mechanical. She did not have a significant prolonged downtime, as she did crawl to her phone and called for help. She did not lose consciousness, and states she did not attempt to get up under her own power. She is also noting some right knee pain, though states this is chronic. She is not on a blood thinner. No chest pain, shortness of breath, or other symptoms at this time. MD complaint: fall Onset (ago): hour(s) Fall from: standing Fall witnessed: no Place fall occurred: home Loss of consciousness: None Prolonged down time: minute(s) Symptoms prior to fall: none Context: tripped/slipped Location of injury: head Location of injury - extremities: Right: elbow and knee Associated symptoms-after fall: Reports headache(s); Denies abdominal pain, chest pain, lightheadedness or neck pain Review of Systems General: Reports: 10 or more systems reviewed and unremarkable except in HPI and below Const: Reports: other (Fall/head injury); Denies: fever(s), chills or fatigue Eyes: Denies: change in vision ENMT: Denies: throat pain, ear or mastoid pain or nasal discharge Card: Denies: chest pain, palpitations, swelling of feet/ankles or lightheadedness Resp: Denies: dyspnea, productive cough or wheezing GI: Denies: abdominal pain, nausea, vomiting, diarrhea or constipation : Denies: flank pain, difficulty voiding, dysuria or urinary frequency Musc: Reports: joint pain (Right elbow and knee) and joint swelling (Right elbow); Denies: neck pain or back pain Skin/Breast: Denies: rash Neuro: Reports: headache(s); Denies: numbness in extremities or weakness in extremities PFSH ED PFSH: Medical History GERD (gastroesophageal reflux disease) Benign essential tremor Generalized anxiety disorder Osteopenia last DEXA 2020 Elevated LFTs Right wrist fracture Degenerative arthritis of knee, bilateral Compression fracture T12 after accident Hiatal hernia Pulmonary nodule 9 mm GUILHERME, 10 mm Inferior right fissure Hypertension Closed fracture of neck of left femur Surgical History Hx of cholecystectomy History of hip surgery left hip Family History Other CAD (coronary artery disease) Heart disease Hypertension Denies family history of Diabetes mellitus, type 2 Dementia TIA (transient ischemic attack) Stroke Social History Smoking and tobacco/nicotine status: former use of tobacco/nicotine Quit status (tobacco/nicotine): has quit using Year quit tobacco: 1060 Alcohol intake: never Substance/Drug Use: never Physical Exam Const: COMMON NORMALS: no acute distress, patient oriented x3, no limitations, healthy appearing, alert and well nourished GENERAL APPEARANCE: cooperative and comfortable HENMT: COMMON NORMALS: external ears normal and Normal external nose present HEAD & SCALP: no Mark's sign, no laceration, no palpable skull fracture, no raccoon eyes, no scalp lesion and no scalp tenderness NOSE: Normal external nose present and Normal septum present EXTERNAL EAR: Yes external ears normal THROAT: posterior oropharynx normal OTHER: There is a large frontal lateral hematoma to the patient's right periorbital region. No open wound. This area is tender to palpation. Eye: COMMON NORMALS: Equal, round and reactive pupils present, EOMs intact bilaterally and conjunctivae normal CONJUNCTIVA: Yes conjunctivae normal PUPIL: Yes Equal, round and reactive pupils present Neck/C-Spine: COMMON NORMALS: full ROM and supple CERVICAL SPINE: Yes cervical ROM normal and Yes normal cervical lordosis Chest: COMMONS NORMALS: normal inspection of the chest and normal palpation of entire chest wall Resp: COMMON NORMALS: normal respiratory effort, No use of accessory muscles and clear to auscultation bilaterally AUSCULTATION: clear to auscultation bilaterally Cardio: COMMON NORMALS: regular rate, regular rhythm, S1 normal heart sound present, S2 normal heart sound present and No murmurs present (Cardio) RATE: regular rate RHYTHM: regular rhythm HEART SOUNDS: S1 normal heart sound present and S2 normal heart sound present GI: COMMON NORMALS: Normal to inspection, nondistended, normoactive bowel sounds present, Soft to palpation and non-tender PALPATION: Yes Soft to palpation Back/Pelvis: COMMON NORMALS: thoracic and lumbar spine normal to inspection, no thoracic nor lumbar tenderness and thoraco-lumbar ROM normal Extremity: NARRATIVE EXTREMITY EXAM: The right olecranon is severely swollen and bruised, and patient has no range of motion at the elbow from pain. No other obvious deformity noted. She does have a palpable radial pulse and no distal sensory changes. Good roller skate repairer strength. Right knee appears chronically swollen, no acute appearing deformity noted. Neuro: COMMON NORMALS: patient oriented x3, CN's II-XII intact bilaterally, no focal motor deficits and no sensory deficits noted SENSORIUM/ORIENTATION: Yes alert OTHER: No facial asymmetry, slurring of speech, or focal unilateral deficit noted Psych: COMMON NORMALS: mental status grossly normal OTHER: Family confirms patient is at baseline mentation Course Vital Signs: Vital signs: Vital Signs Temperature 98.0 F 10/16/23 23:24 Pulse Rate 74 10/17/23 01:00 Respiratory Rate 16 10/17/23 01:00 Blood Pressure 157/77 10/17/23 01:00 Pulse Oximetry 93 10/17/23 01:00 Oxygen Delivery Me thod Room Air 10/16/23 23:24 MDM - Fall Medical Decision Making Patient brought in for a fall that occurred approximately 10 PM. She did arrive with a large hematoma to her right periorbital region, and an obviously deformed right elbow. CT imaging of her head was negative for any acute intracranial abnormality. She additionally was neurologically intact on physical exam, and at baseline mentation. No focal neurological deficit was noted. X-ray of the right elbow did reveal a proximal ulnar fracture that was severely distracted, and on-call orthopedist was consulted. Dr. Nichols states that we can place in posterior splint and follow-up with him for further evaluation. Patient will continue to take Tylenol and ibuprofen at home as they deny any stronger pain medications. Family does state that they are able to watch the patient and ensure that she does not reinjure her head or other areas. Reasons to return were discussed in thorough detail, and patient will be discharged home with follow-up in place. Lab Data Radiology Impressions Cervical Spine CT 10/16/23 23:38 IMPRESSION: 1. Negative for fracture or dislocation. 2. Multilevel severe disc space narrowing and productive degenerative endplate changes throughout the spine. 3. C3 and C4 vertebral body sclerotic bony lesions, indeterminate, consider correlation with a whole body nuclear medicine bone scan. Elbow X-Ray 10/16/23 23:38 IMPRESSION: 1. Significantly distracted fracture of the olecranon process of the proximal right ulna. 2. Prominent right elbow joint effusion/hemarthrosis. Head CT 10/16/23 23:38 IMPRESSION: 1. Negative for intracranial hemorrhage or mass effect 2. Right periorbital subcutaneous hematoma. Knee X-Ray 10/16/23 23:38 IMPRESSION: 1. No definite acute fracture or dislocation. 2. Suspected joint effusion, see above. 3. Other findings discussed above. All radiology interpretation(s) finalized by discharge Discharge Plan Discharge Patient Disposition: Home Clinical Impression: Periorbital hematoma of right eye Closed fracture of proximal end of right ulna Qualifiers: Encounter type: initial encounter Fracture morphology: unspecified fracture morphology Qualified Code(s): S52.001A - Unspecified fracture of upper end of right ulna, initial encounter for closed fracture Fall Qualifiers: Encounter type: initial encounter Qualified Code(s): W19.XXXA - Unspecified fall, initial encounter Condition: Stable Prescriptions: No Action (DME) incentive spirometer See Rx Instructions .Route .MEDSUPPLY Qty: 1 0RF Rx Instructions: As directed (DME) corset brace See Rx Instructions .Route .MEDSUPPLY Qty: 1 0RF Rx Instructions: As directed (DME) right medial offloader brace See Rx Instructions .Route .MEDSUPPLY Qty: 1 0RF Rx Instructions: As directed sertraline 100 mg tablet 100 mg PO QAM Qty: 90 3RF (DME) Rural Service Engineer Knee Brace See Rx Instructions .Route .MEDSUPPLY Qty: 1 0RF Rx Instructions: As directed (DME) Rural Service Engineer Knee Brace See Rx Instructions .Route .MEDSUPPLY Qty: 1 0RF Rx Instructions: As directed losartan 25 mg tablet 25 mg PO DAILY Qty: 30 3RF pregabalin [Lyrica] 25 mg capsule 25 mg PO DAILY Qty: 30 1RF acebutolol 400 mg capsule 400 mg PO BID Qty: 180 3RF tramadol 50 mg tablet 25 - 50 mg PO BID PRN (Reason: pain) Qty: 20 0RF Discharge Orders: Discharge ED (Routine); Ordered 10/17/23 Ordered By: Marcus Berger Referrals: Anish Dos Santos, [employer] [Primary Care Provider] - Discharge Diet: Usual diet Discharge Activity: Limit activity as instructed Patient Instructions: Elbow Fracture (ED) Activity Restrictions/Additional Instructions: Tylenol and ibuprofen for pain. Keep splint on and follow-up with orthopedics in the next couple days as discussed. Avoid reinjury of head and monitor for any new or concerning symptoms that would warrant return to the emergency department for reevaluation. Ice to the facial hematoma to help with swelling and pain. Coding Level of Care Code ED Toll Repairer [facility] Documented by User: Sekou Moncada DO 10/19/23 21:50 HPI - Fall General: Chief Complaint: Fall Stated Complaint: Fall,right arm pain Time Seen by Provider: 10/16/23 23:27 [facility] ED PFSH: Medical History GERD (gastroesophageal reflux disease) Benign essential tremor Generalized anxiety disorder Osteopenia last DEXA 2020 Elevated LFTs Right wrist fracture Degenerative arthritis of knee, bilateral Compression fracture T12 after accident Hiatal hernia Pulmonary nodule 9 mm GUILHERME, 10 mm Inferior right fissure Hypertension Closed fracture of neck of left femur Surgical History Hx of cholecystectomy History of hip surgery left hip Family History Other CAD (coronary artery disease) Heart disease Hypertension Denies family history of Diabetes mellitus, type 2 Dementia TIA (transient ischemic attack) Stroke Social History Smoking and tobacco/nicotine status: former use of tobacco/nicotine Quit status (tobacco/nicotine): has quit using Year quit tobacco: 1060 Alcohol intake: never Substance/Drug Use: never Course Vital Signs: Vital signs: Vital Signs Temperature 98.0 F 10/16/23 23:24 Pulse Rate 74 10/17/23 01:00 Respiratory Rate 16 10/17/23 01:00 Blood Pressure 157/77 10/17/23 01:00 Pulse Oximetry 93 10/17/23 01:00 Oxygen Delivery Me thod Room Air 10/16/23 23:24 MDM - Fall Medical Decision Making Patient brought in for a fall that occurred approximately 10 PM. She did arrive with a large hematoma to her right periorbital region, and an obviously deformed right elbow. CT imaging of her head was negative for any acute intracranial abnormality. She additionally was neurologically intact on physical exam, and at baseline mentation. No focal neurological deficit was noted. X-ray of the right elbow did reveal a proximal ulnar fracture that was severely distracted, and on-call orthopedist was consulted. Dr. Nichols states that we can place in posterior splint and follow-up with him for further evaluation. Patient will continue to take Tylenol and ibuprofen at home as they deny any stronger pain medications. Family does state that they are able to watch the patient and ensure that she does not reinjure her head or other areas. Reasons to return were discussed in thorough detail, and patient will be discharged home with follow-up in place. Chart reviewed Lab Data Radiology Impressions Cervical Spine CT 10/16/23 23:38 IMPRESSION: 1. Negative for fracture or dislocation. 2. Multilevel severe disc space narrowing and productive degenerative endplate changes throughout the spine. 3. C3 and C4 vertebral body sclerotic bony lesions, indeterminate, consider correlation with a whole body nuclear medicine bone scan. Elbow X-Ray 10/16/23 23:38 IMPRESSION: 1. Significantly distracted fracture of the olecranon process of the proximal right ulna. 2. Prominent right elbow joint effusion/hemarthrosis. Head CT 10/16/23 23:38 IMPRESSION: 1. Negative for intracranial hemorrhage or mass effect 2. Right periorbital subcutaneous hematoma. Knee X-Ray 10/16/23 23:38 IMPRESSION: 1. No definite acute fracture or dislocation. 2. Suspected joint effusion, see above. 3. Other findings discussed above. Discharge Plan Discharge Patient Disposition: Home Clinical Impression: Periorbital hematoma of right eye Closed fracture of proximal end of right ulna Qualifiers: Encounter type: initial encounter Fracture morphology: unspecified fracture morphology Qualified Code(s): S52.001A - Unspecified fracture of upper end of right ulna, initial encounter for closed fracture Fall Qualifiers: Encounter type: initial encounter Qualified Code(s): W19.XXXA - Unspecified fall, initial encounter Condition: Stable Prescriptions: No Action (DME) incentive spirometer See Rx Instructions .Route .MEDSUPPLY Qty: 1 0RF Rx Instructions: As directed (DME) corset brace See Rx Instructions .Route .MEDSUPPLY Qty: 1 0RF Rx Instructions: As directed (DME) right medial offloader brace See Rx Instructions .Route .MEDSUPPLY Qty: 1 0RF Rx Instructions: As directed sertraline 100 mg tablet 100 mg PO QAM Qty: 90 3RF (DME) Rural Service Engineer Knee Brace See Rx Instructions .Route .MEDSUPPLY Qty: 1 0RF Rx Instructions: As directed (DME) Rural Service Engineer Knee Brace See Rx Instructions .Route .MEDSUPPLY Qty: 1 0RF Rx Instructions: As directed losartan 25 mg tablet 25 mg PO DAILY Qty: 30 3RF pregabalin [Lyrica] 25 mg capsule 25 mg PO DAILY Qty: 30 1RF acebutolol 400 mg capsule 400 mg PO BID Qty: 180 3RF tramadol 50 mg tablet 25 - 50 mg PO BID PRN (Reason: pain) Qty: 20 0RF Discharge Orders: Discharge ED (Routine); Ordered 10/17/23 Ordered By: Marcus Berger Referrals: Anish Dos Santos [employer] [Primary Care Provider] - Discharge Diet: Usual diet Discharge Activity: Limit activity as instructed Patient Instructions: Elbow Fracture (ED) Activity Restrictions/Additional Instructions: Tylenol and ibuprofen for pain. Keep splint on and follow-up with orthopedics in the next couple days as discussed. Avoid reinjury of head and monitor for any new or concerning symptoms that would warrant return to the emergency department for reevaluation. Ice to the facial hematoma to help with swelling and pain. Coding Level of Care Code ED Toll Repairer [facility] for [facility]
[2023-10-17 00:30] VITALS: BP 156/75; PULSE 73; RESP 16; O2SAT 94
[2023-10-17 01:00] VITALS: BP 157/77; PULSE 74; RESP 16; O2SAT 93
[2023-10-17] MEDS: ibuprofen 600 mg Tablet 800 MG PO (01:10)
--- NOTE | 2023-10-17 07:51 | DCPLANNER ---
Message sen to Ortho for a follow up on a closed FX of proximal end of right ulna.
== END 2023-10-17 01:29 | disposition home or self-care (01) ==
PROVIDERS: Emergency Provider Physician Assistant; PCP Clinical Nurse Specialist Adult Health
DX: S52.001A Unspecified fracture of upper end of right ulna, initial encounter for closed fracture (principal); S05.11XA Contusion of eyeball and orbital tissues, right eye, initial encounter; I10 Essential (primary) hypertension; Z87.891 Personal history of nicotine dependence; W01.0XXA Fall on same level from slipping, tripping and stumbling without subsequent striking against object, initial encounter; Y92.003 Bedroom of unspecified non-institutional (private) residence as the place of occurrence of the external cause
CPT/HCPCS: 29105; 70450; 72125; 73080; 73562; 80053; 80061; 82306; 84550; 85025; 86140; 99284

== ENCOUNTER 2023-10-23 06:00 | Outpatient (CLI) | payer MEDICARE, MEDICAID, SELFPAY | END 2023-10-23 23:59 | disposition home or self-care (01) | PROVIDERS: PCP Clinical Nurse Specialist Adult Health; Visit Provider Physician Assistant | DX: Z46.89 Encounter for fitting and adjustment of other specified devices (principal); S52.001D Unspecified fracture of upper end of right ulna, subsequent encounter for closed fracture with routine healing; X58.XXXD Exposure to other specified factors, subsequent encounter | CPT/HCPCS: 97760; 99213; L3763 ==

== ENCOUNTER → 2023-10-23 13:16 | Outpatient (BNVA) | payer MEDICARE, MEDICAID, SELFPAY | PROVIDERS: PCP Clinical Nurse Specialist Adult Health; Referring Provider Physician Assistant; Visit Provider Physician Assistant | DX: S52.001A Unspecified fracture of upper end of right ulna, initial encounter for closed fracture (principal); X58.XXXA Exposure to other specified factors, initial encounter | CPT/HCPCS: 73080 ==

== ENCOUNTER 2023-10-25 13:16 | Emergency (ER) | payer MEDICARE, MEDICAID, SELFPAY ==
[2023-10-25 13:26] VITALS: BP 162/74; PULSE 58; RESP 16; TEMP 36.7; O2SAT 95; BMI 26.6
--- NOTE | 2023-10-25 14:44 | XRR_ITS ---
PROCEDURE INFORMATION: Exam: XR Chest Exam date and time: 10/25/2023 2:58 PM Age: 87 years old Clinical indication: Cough and dyspnea; Additional info: Dyspnea/cough TECHNIQUE: Imaging protocol: Radiologic exam of the chest. Views: 1 view. COMPARISON: CT chest w con* [id number] 07/24/2023 10:18 AM FINDINGS: Lungs: There is focal ill-defined opacity projecting over the left lung base, corresponding to the findings on superintendent menagerie radiograph of chest CT 07/24/2023. There is minimal fine reticular opacity at the right lung base suggesting atelectasis or scarring. There are scattered high density lung nodules bilaterally, corresponding to calcified granulomas on the prior chest CT. Pleural spaces: There is no pleural effusion or pneumothorax. Heart/Mediastinum: The cardiac silhouette is within normal limits of size given AP technique. Bones/joints: Bones are unremarkable. XR/XR chest 1V portable [id number] IMPRESSION: No definite pulmonary consolidation. Focal opacity at the left lung base corresponding to findings on chest CT 07/24/2023, suggesting prominent epicardial fat pad and adjacent atelectasis.
--- NOTE | 2023-10-25 14:45 | ECG_ITS ---
[facility] Test Date: 2023-10-25 Pat Name: Deirdre Connolly Department: Room: Gender: Female Service Support Representative: : 1935 Requested By: Sekou Calhoun Order Number: [id number] [place] MD: Tari Langley M.D. Measurements Intervals [place] Rate: 59 P: 77 HI: 200 QRS: -25 QRSD: 124 T: 52 QT: 440 QTc: 439 Interpretive Statements SINUS BRADYCARDIA VOLTAGE CRITERIA FOR LVH [MEETS CRITERIA IN ONE OF: R(aVL), S(V1), R(V5), R(V5/V6)+S(V1)] POSSIBLE SEPTAL MYOCARDIAL INFARCTION , PROBABLY OLD [30 ms Q WAVE IN V1/V2] LATERAL MYOCARDIAL INFARCTION , PROBABLY OLD [40+ ms Q WAVE AND/OR ST/T ABNORMALITY IN I/aVL/V5/V6] Compared to ECG 03/27/2023 14:23:39 ST (T wave) deviation no longer present Myocardial infarct finding still present Electronically Signed On 10-25-2023 22:01:33 CDT by Tari Langley M.D. [email or web address]
[2023-10-25 15:10] VITALS: BP 182/75; PULSE 64; RESP 18; O2SAT 91
--- NOTE | 2023-10-25 15:12 | ED_ITS ---
HPI - Chest Pain 2 General: Chief Complaint: Chest Pain Stated Complaint: sob, chest pain Time Seen by Provider: 10/25/23 14:42 Source: patient Mode of arrival: ambulatory History of Present Illness: 87-year-old female presents emergency ro om complaining of shortness of breath this morning. Lasted for few hours that resolved at this time. She did not have any chest pain. She recently fell has bruising on her face she has a fracture on her right elbow in a splint. MD complaint: chest discomfort and other (Shortness of breath) Onset (ago): minute(s) Timing of current episode: episodic Onset: awoke with symptoms Pain location: substernal Pain radiation: none Quality: heaviness Relieving factors: nothing Exacerbating factors: nothing Associated symptoms: Deny abdominal pain, diaphoresis, dyspnea, fever(s), leg edema, nausea, palpitations, sense of impending doom, syncope or vomiting Review of Systems 2 Const: Denies: fever(s), chills or diaphoresis Card: Reports: orthopnea; Denies: chest pain, palpitations or syncope Resp: Denies: dyspnea GI: Denies: abdominal pain, nausea or vomiting : Denies: dysuria, urinary frequency or urinary urgency Musc: Denies: neck pain or back pain Skin/Breast: Denies: rash PFSH ED 2 PFSH: Medical History GERD (gastroesophageal reflux disease) Benign essential tremor Generalized anxiety disorder Osteopenia last DEXA 2020 Elevated LFTs Right wrist fracture Degenerative arthritis of knee, bilateral Compression fracture T12 after accident Hiatal hernia Pulmonary nodule 9 mm GUILHERME, 10 mm Inferior right fissure Hypertension Closed fracture of neck of left femur Surgical History Hx of cholecystectomy History of hip surgery left hip Family History Other CAD (coronary artery disease) Heart disease Hypertension Denies family history of Diabetes mellitus, type 2 Dementia TIA (transient ischemic attack) Stroke Social History Smoking and tobacco/nicotine status: former use of tobacco/nicotine Quit status (tobacco/nicotine): has quit using Year quit tobacco: 1060 Alcohol intake: never Substance/Drug Use: never Physical Exam 2 Const: GENERAL APPEARANCE: cooperative and comfortable O RIENTATION/CONSCIOUSNESS: Yes awake, Yes oriented to person, Yes oriented to place and Yes oriented to time HENMT: COMMON NORMALS: normocephalic and hearing grossly normal bilaterally HEAD & SCALP: normocephalic OTHER: Bruising on the face consistent with injury from glasses to the fall. Patient confirms. Resp: COMMON NORMALS: normal respiratory effort, No retractions, No use of accessory muscles and clear to auscultation bilaterally AUSCULTATION: clear to auscultation bilaterally Cardio: COMMON NORMALS: regular rate, regular rhythm and No murmurs present (Cardio) RATE: regular rate RHYTHM: regular rhythm GI: COMMON NORMALS: Soft to palpation and No hepatosplenomegaly present A USCULTATION: Yes normoactive bowel sounds PALPATION: Yes Soft to palpation, No Tenderness to palpation present (GI), No Guarding due to palpation present (GI) and Yes No hepatosplenomegaly present Extremity: COMMON NORMALS: capillary refill normal, no clubbing, cyanosis or edema, no calf tenderness and no pedal edema OTHER: Right arm is in a posterior splint and sling there are some ecchymosis to the hand Neuro: SENSORIUM/ORIENTATION: Yes oriented to person, Yes oriented to place and Yes oriented to time Skin: COMMON NORMALS: no rashes or lesions noted GENERAL SKIN EXAM: no rashes or lesions noted Course 2 Vital Signs: Vital signs: Vital Signs Temperature 98.0 F 10/25/23 13:26 Pulse Rate 90 10/25/23 18:16 Respiratory Rate 18 10/25/23 15:10 Blood Pressure 143/80 10/25/23 18:16 Pulse Oximetry 94 10/25/23 18:16 Oxygen Delivery Me thod Room Air 10/25/23 17:30 MDM - Chest Pain Medical Decision Making Mild CHF improved with diuresis in the emergency room. Will discharge patient home on 20 of Lasix daily also supplement with potassium 20 mill equivalents daily. Set her up for outpatient echocardiogram, Lexiscan sestamibi stress test and follow-up next week with primary care. She is no longer having symptoms. It is more of a transient episode this morning. Medical Records I reviewed the patient's medical records. Lab Data I reviewed the patient's lab results. 10/25/23 15:08 10/25/23 15:08 Radiology Impressions Chest X-Ray 10/25/23 14:44 IMPRESSION: No definite pulmonary consolidation. Focal opacity at the left lung base corresponding to findings on chest CT 07/24/2023, suggesting prominent epicardial fat pad and adjacent atelectasis. Laboratory Results WBC 4.97 10^3/uL (3.29-11.43) 10/25/23 15:08 RBC 4.10 10^6/uL (3.85-5.65) 10/25/23 15:08 Hgb 11.40 g/dL (11.27-16.99) 10/25/23 15:08 Hct 35.9 % (36-47) L 10/25/23 15:08 MCV 87.6 fl (85-98) 10/25/23 15:08 MCH 27.8 pg (27-33) 10/25/23 15:08 MCHC 31.8 g/dL (30-55) 10/25/23 15:08 RDW 12.8 % (12.1-15.1) 10/25/23 15:08 Plt Count 174 10^3/cmm (157-399) 10/25/23 15:08 MPV 9.7 fL (7.4-10.4) 10/25/23 15:08 Neut % (Auto) 65.0 % 10/25/23 15:08 Lymph % (Auto) 19.5 % 10/25/23 15:08 [place] % (Auto) 10.5 % 10/25/23 15:08 Eos % (Auto) 3.2 % 10/25/23 15:08 Baso % (Auto) 0.4 % 10/25/23 15:08 Neut # (Auto) 3.23 10^3/uL (1.8-7.7) 10/25/23 15:08 Lymph # (Auto) 1.0 10^3/uL (0.8-4.8) 10/25/23 15:08 [place] # (Auto) 0.5 10^3/uL (0.2-0.9) 10/25/23 15:08 Eos # (Auto) 0.2 10^3/uL (0.0-0.8) 10/25/23 15:08 Baso # (Auto) 0.0 10^3/uL (0.0-0.1) 10/25/23 15:08 Nucleated RBC % (auto) 0 % 10/25/23 15:08 Nucleated RBCs # 0.0 /100WBC 10/25/23 15:08 Sodium 141 mmol/L (136-145) 10/25/23 15:08 Potassium 3.9 mmol/L (3.5-5.1) 10/25/23 15:08 Chloride 104 mmol/L (98-107) 10/25/23 15:08 Carbon Dioxide 28 mmol/L (22-29) 10/25/23 15:08 Anion Gap 12.9 (5-19) 10/25/23 15:08 BUN 15 mg/dL (8-23) 10/25/23 15:08 Creatinine 0.7 mg/dL (0.5-0.9) 10/25/23 15:08 GFR Calculation Not Reportable 10/25/23 15:08 Glucose 90 mg/dL (65-115) 10/25/23 15:08 Calculated Osmolality 292 mOsm/kg (285-295) 10/25/23 15:08 Calcium 8.8 mg/dL (8.5-10.5) 10/25/23 15:08 Total Bilirubin 0.8 mg/dL (0.15-1.2) 10/25/23 15:08 AST 18 U/L (0-32) 10/25/23 15:08 ALT 18 U/L (0-33) 10/25/23 15:08 Alkaline Phosphatase 81 U/L (35-105) 10/25/23 15:08 Troponin T Baseline 30 ng/L (0-10) H 10/25/23 15:08 Troponin T 120 Minute 27.57 ng/L (0-10) H 10/25/23 17:09 Delta Troponin T -2.43 ABS# (0-10) L 10/25/23 17:09 NT-Pro-B Natriuret Pep 2410 pg/mL (0-450) H 10/25/23 15:08 Total Protein 6.3 g/dL (6.6-8.7) L 10/25/23 15:08 Albumin 3.9 g/dL (3.5-5.2) 10/25/23 15:08 Globulin 2.4 g/dL (1.3-4.6) 10/25/23 15:08 All radiology interpretation(s) finalized by discharge Discharge Plan Discharge Patient Disposition: Home Clinical Impression: Mild congestive heart failure Condition: Stable Prescriptions: New Lasix 20 mg tablet 20 mg PO DAILY Qty: 30 0RF Klor-Con M20 20 mEq tablet,ER particles/crystals 20 meq PO DAILY Qty: 30 0RF No Action (DME) incentive spirometer See Rx Instructions .Route .MEDSUPPLY Qty: 1 0RF Rx Instructions: As directed (DME) corset brace See Rx Instructions .Route .MEDSUPPLY Qty: 1 0RF Rx Instructions: As directed (DME) right medial offloader brace See Rx Instructions .Route .MEDSUPPLY Qty: 1 0RF Rx Instructions: As directed sertraline 100 mg tablet 100 mg PO QAM Qty: 90 3RF (DME) edema wrap and custom posterior splint See Rx Instructions .Route .MEDSUPPLY Qty: 1 0RF Rx Instructions: bent a 45 degrees, per Dr. Nichols needs to be seen 2 more times for swelling management, splint modification before next apt with ortho. (DME) Tools [employer] Attendant Knee Brace See Rx Instructions .Route .MEDSUPPLY Qty: 1 0RF Rx Instructions: As directed (DME) Tools [employer] Parts Attendant Knee Brace See Rx Instructions .Route .MEDSUPPLY Qty: 1 0RF Rx Instructions: As directed losartan 25 mg tablet 25 mg PO DAILY Qty: 30 3RF pregabalin [Lyrica] 25 mg capsule 25 mg PO DAILY Qty: 30 1RF acebutolol 400 mg capsule 400 mg PO BID Qty: 180 3RF tramadol 50 mg tablet 25 - 50 mg PO BID PRN (Reason: pain) Qty: 20 0RF Discharge Orders: Discharge ED (Routine); Ordered 10/25/23 Ordered By: Sekou Moncada Referrals: Anish Dos Santos, CAMPUS ADMINISTRATOR [Primary Care Provider] - Discharge Diet: Low Salt Discharge Activity: Increase activity as tolerated Patient Instructions: Opioid Safety, Pain Management Activity Restrictions/Additional Instructions: Thank you for choosing [facility] for your healthcare needs today. It is very important that you follow up as instructed or that you return to the Emergency Department should you have concerns or if your condition changes or worsens in any way. You are seen today with an episode of shortness of breath. Your laboratory tests show some increased fluid retention along suggestive of congestive heart failure. Recommend that he take Lasix 20 mg daily along with potassium supplement 20 mill equivalents once a day. Continue your other previously prescribed medications you should follow-up with your primary care provider within the next week. Will also have you scheduled for an outpatient echocardiogram. Coding Level of Care Code ED Electronics Technician Apprentice for Yang Lopez
[2023-10-25 15:19] LABS: Basophils % 0.4 %; Eosinophils # 0.2 10^3/uL (0.0-0.8); Eosinophils % 3.2 %; Hematocrit 35.9 % (36-47); Lymphocytes % 19.5 %; Mean Corpuscular HGB Conc 31.8 g/dL (30-55); Mean Corpuscular Hemoglobin 27.8 pg (27-33); Mean Corpuscular Volume 87.6 fl (85-98); Mean Platelet Volume 9.7 fL (7.4-10.4); Monocytes # 0.5 10^3/uL (0.2-0.9); Monocytes % 10.5 %; Neutrophils # 3.23 10^3/uL (1.8-7.7); Nucleated Red Blood Cells % 0 %; Platelet Count 174 10^3/cmm (157-399); Red Cell Distribution Width 12.8 % (12.1-15.1); White Blood Count 4.97 10^3/uL (3.29-11.43)
[2023-10-25 15:43] LABS: Troponin(5th) Baseline 30 ng/L (0-10)
[2023-10-25 16:15] VITALS: BP 167/75; PULSE 62; O2SAT 91
[2023-10-25 16:17] LABS: Alanine Aminotransferase 18 U/L (0-33); Albumin Level 3.9 g/dL (3.5-5.2); Alkaline Phosphatase 81 U/L (35-105); Anion Gap 12.9 (5-19); Aspartate Amino Transferase 18 U/L (0-32); Blood Urea Nitrogen 15 mg/dL (8-23); Calcium 8.8 mg/dL (8.5-10.5); Carbon Dioxide 28 mmol/L (22-29); Chloride 104 mmol/L (98-107); Creatinine Clr Calc Pharmacy 51.3195; Globulin 2.4 g/dL (1.3-4.6); Glucose 90 mg/dL (65-115); Osmolality Calculated 292 mOsm/kg (285-295); Potassium 3.9 mmol/L (3.5-5.1); Sodium 141 mmol/L (136-145); Total Bilirubin 0.8 mg/dL (0.15-1.2); Total Protein 6.3 g/dL (6.6-8.7)
[2023-10-25 16:41] LABS: NT Pro B Type Natriuretic Pept 2410 pg/mL (0-450)
--- NOTE | 2023-10-25 16:57 | ECG_ITS ---
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 Measurements Intervals [place] Rate: 60 P: 85 MD: 190 QRS: -22 QRSD: 115 T: 46 QT: 448 QTc: 451 Interpretive Statements SINUS RHYTHM VOLTAGE CRITERIA FOR LVH [MEETS CRITERIA IN ONE OF: R(aVL), S(V1), R(V5), R(V5/V6)+S(V1)] POSSIBLE SEPTAL MYOCARDIAL INFARCTION , PROBABLY OLD [30 ms Q WAVE IN V1/V2] PROBABLE LATERAL MYOCARDIAL INFARCTION , PROBABLY OLD [35 ms Q WAVE IN I/aVL/V5/V6] Compared to ECG 10/25/2023 13:20:51 Sinus bradycardia no longer present Myocardial infarct finding still present Electronically Signed On 10-25-2023 22:12:37 CDT by Tari Langley M.D. [email or web address]
[2023-10-25] MEDS: FUROsemide 10 mg/mL SDV 4mL 40 MG IVP (17:12)
[2023-10-25 17:30] VITALS: BP 189/67; PULSE 59; O2SAT 92
[2023-10-25 17:32] LABS: Troponin 5 2HR 27.57 ng/L (0-10); Troponin 5 2HR Delta -2.43 ABS# (0-10)
[2023-10-25 18:16] VITALS: BP 143/80; PULSE 90; O2SAT 94
--- NOTE | 2023-10-25 18:19 | DCPLANNER ---
faxed er f/u echo order to scheduling
== END 2023-10-25 19:25 | disposition home or self-care (01) ==
PROVIDERS: Emergency Provider Family Medicine; PCP Clinical Nurse Specialist Adult Health
DX: I11.0 Hypertensive heart disease with heart failure (principal); I50.9 Heart failure, unspecified; R06.02 Shortness of breath; Z87.891 Personal history of nicotine dependence; Z79.899 Other long term (current) drug therapy
CPT/HCPCS: 36415; 71045; 80053; 83880; 84484; 85025; 93005; 96374; 99285; J1940

== ENCOUNTER → 2023-11-02 15:09 | Outpatient (BNVA) | payer MEDICARE, MEDICAID, SELFPAY | PROVIDERS: PCP Clinical Nurse Specialist Adult Health; Visit Provider Student in an Organized Health Care Education/Training Program | DX: S52.001A Unspecified fracture of upper end of right ulna, initial encounter for closed fracture (principal); X58.XXXA Exposure to other specified factors, initial encounter; M17.4 Other bilateral secondary osteoarthritis of knee; R30.0 Dysuria; I50.9 Heart failure, unspecified | CPT/HCPCS: 20610; 73080; 80053; 81000; 83880; 85025; 87086; 99214; J3301 ==

== ENCOUNTER 2023-11-06 13:54 | Outpatient (RCR) | payer MEDICARE, MEDICAID, SELFPAY | END 2023-11-11 23:59 | disposition home or self-care (01) | LOC: SOT 13:54 | PROVIDERS: PCP Clinical Nurse Specialist Adult Health; Visit Provider Student in an Organized Health Care Education/Training Program | DX: S52.001D Unspecified fracture of upper end of right ulna, subsequent encounter for closed fracture with routine healing (principal); X58.XXXD Exposure to other specified factors, subsequent encounter | CPT/HCPCS: 97110; 97165; 97530 ==

== ENCOUNTER → 2023-11-09 13:03 | Outpatient (BNVA) | payer MEDICARE, MEDICAID, SELFPAY | PROVIDERS: PCP Clinical Nurse Specialist Adult Health; Visit Provider Clinical Nurse Specialist Adult Health | DX: I50.9 Heart failure, unspecified (principal); N30.01 Acute cystitis with hematuria; M85.80 Other specified disorders of bone density and structure, unspecified site; G62.9 Polyneuropathy, unspecified; R79.89 Other specified abnormal findings of blood chemistry; I10 Essential (primary) hypertension | CPT/HCPCS: 80048; 83880 ==

== ENCOUNTER 2023-11-12 06:00 | Outpatient (RCR) | payer MEDICARE, MEDICAID, SELFPAY | END 2023-12-12 23:59 | disposition home or self-care (01) | LOC: SOT 06:00 | PROVIDERS: PCP Clinical Nurse Specialist Adult Health; Visit Provider Student in an Organized Health Care Education/Training Program | DX: S52.201D Unspecified fracture of shaft of right ulna, subsequent encounter for closed fracture with routine healing (principal); X58.XXXD Exposure to other specified factors, subsequent encounter | CPT/HCPCS: 97110; 97140; 99213 ==

== ENCOUNTER 2023-11-23 08:24 | Outpatient (CLI) | payer MEDICARE, MEDICAID, SELFPAY ==
[2023-11-23 08:28] VITALS: BMI 25.0
--- NOTE | 2023-11-23 08:31 | NMCV_ITS ---
NM rupinder perf SPECT r/s* [id number] Deirdre Connolly Age: 87 Gender: F : 1935 Exam Date: 11/23/2023 08:31 Ordering Phys: Sekou Moncada DO Technologist: CORRINE Ibrahim Exam Location: [facility] Indications: Chest discomfort STRESS TEST Please see separate stress test report in [facility] for full findings IMAGE PROTOCOL Rest/Stress 1 Lexiscan Day Radiopharmaceutical Dose (mCi) Administration Site Administered by Rest: Tc-99m 10.5 IV CORRINE Ibrahim Sestamibi Stress:Tc-99m 32.2 IV CORRINE Ibrahim Sestamibi Rest: 23-Nov-2023 60 Discovery 630 Stress: 23-Nov-2023 15 Discovery 630 0.4mg Lexiscan. Supine position only as patient was unable to lay prone. SPECT RESULTS Technical Quality: Good Raw Data Analysis: Normal Image Corrections: No attenuation or motion correction applied Summed Stress Score: 1 Summed Rest Score: 0 Summed Difference Score: 1 PERFUSION FINDINGS There is small area of reversible perfusion defect seen in the apical lateral wall. This is consistent with small area of ischemia seen in the left circumflex artery territory. FUNCTIONAL RESULTS (calculated via Gated SPECT) Stress Image LV EF (%): 74 Stress EDV (mL):80 TID: 0.84 Stress ESV (mL):21 FUNCTIONAL FINDINGS: There is normal left ventricular systolic function. IMPRESSIONS 1. Small area of ischemia is seen in the left circumflex artery territory. 2. LV systolic function is normal Óscar Crowder MD (Electronically Signed) Final Date: 23 November 2023 11:29 S
--- NOTE | 2023-11-23 08:31 | ECG_ITS ---
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 Interpretive Statements NAME OF STUDY: LEXISCAN SESTAMIBI STRESS TEST INDICATION: Chest Discomfort PROCEDURE: At the baseline, the EKG revealed sinus bradycardia with features of nonspecific IVCD and possible old lateral wall ND. The baseline heart was 63 bpm with a blood pressue of 147/69 mm of Hg Lexiscan was infused over a period of 20 seconds. A total of 0.4 milligrams of Lexiscan was infused. The stress phase was continued for a total of 5 minutes. Heart rate at the end of the stress phase was 80 bpm with a blood pressure 155/72 mm of Hg. The EKG at the peak infusion revealed no significant changes. Sestamibi was injected 20 seconds after the Lexiscan infusion. Heart rate at the end of the recovery phase was 76 bpm with a blood pressure of 122/69 mm of Hg. CONCLUSION: 1. No significant EKG changes with the LexiScan infusion 2. No LexiScan induced chest pain or cardiac arrhythmia 3. Normal blood pressure and heart rate response 4. Sestamibi/sestamibi perfusion scan pending; see separate report. Electronically Signed On 11-29-2023 22:41:25 CDT by Tari aLngley M.D. [email or web address]
[2023-11-23] MEDS: regadenoson 0.4 Mg/5 ml Syringe IVP (10:07)
[2023-11-23 10:48] VITALS: BP 122/65; PULSE 72
== END 2023-11-23 08:25 | disposition home or self-care (01) ==
LOC: CDL 08:25
PROVIDERS: PCP Clinical Nurse Specialist Adult Health; Visit Provider Family Medicine
DX: R07.9 Chest pain, unspecified (principal)
CPT/HCPCS: 36415; 78452; 93017; 96374; A9500; J2785

== ENCOUNTER → 2023-12-06 08:18 | Outpatient (BNVA) | payer MEDICARE, MEDICAID, SELFPAY | PROVIDERS: PCP Clinical Nurse Specialist Adult Health; Visit Provider Physician Assistant | DX: M25.552 Pain in left hip (principal); M25.551 Pain in right hip; S52.021A Displaced fracture of olecranon process without intraarticular extension of right ulna, initial encounter for closed fracture; X58.XXXA Exposure to other specified factors, initial encounter | CPT/HCPCS: 73080; 73522 ==

== ENCOUNTER 2023-12-14 06:00 | Outpatient (RCR) | payer MEDICARE, MEDICAID, SELFPAY | END 2024-01-12 23:59 | disposition home or self-care (01) | LOC: SOT 06:00 | PROVIDERS: PCP Clinical Nurse Specialist Adult Health; Visit Provider Physician Assistant | DX: S52.201A Unspecified fracture of shaft of right ulna, initial encounter for closed fracture (principal) | CPT/HCPCS: 97110; 97140; 97165 ==

== ENCOUNTER → 2024-01-24 08:16 | Outpatient (BNVA) | payer MEDICARE, MEDICAID, SELFPAY | PROVIDERS: PCP Clinical Nurse Specialist Adult Health; Visit Provider Physician Assistant | DX: M79.89 Other specified soft tissue disorders; M25.552 Pain in left hip | CPT/HCPCS: 73523; 99213 ==

== ENCOUNTER → 2024-02-07 08:16 | Outpatient (BNVA) | payer MEDICARE, MEDICAID, SELFPAY | PROVIDERS: PCP Clinical Nurse Specialist Adult Health; Visit Provider Physician Assistant | DX: M25.521 Pain in right elbow; M17.0 Bilateral primary osteoarthritis of knee; S52.001A Unspecified fracture of upper end of right ulna, initial encounter for closed fracture; X58.XXXA Exposure to other specified factors, initial encounter; M25.562 Pain in left knee; M25.561 Pain in right knee | CPT/HCPCS: 20610; 73080; 73560; 73565; 99213; J3301 ==

== ENCOUNTER 2024-02-22 13:58 | Outpatient (CLI) | payer MEDICARE, MEDICAID, SELFPAY ==
--- NOTE | 2024-02-22 14:00 | CTR_ITS ---
PROCEDURE INFORMATION: Exam: CT Left Lower Extremity, Hip Exam date and time: 02/22/2024 2:13 PM Age: 88 years old Clinical indication: Other: Mass of tissue of hip; Prior surgery; Surgery date: 6+ months; Surgery type: Left hip 1 year ago; Patient HX: Soft tissue mass left lateral hip area x 2 months; Additional info: Mass of tissue of hip, CT with iv contrast soft tissue of left hip mass TECHNIQUE: Imaging protocol: CT of the left lower extremity with intravenous contrast was performed. Exam focused on the hip. Radiation optimization: All CT scans at this facility use at least one of these dose optimization techniques: automated exposure control; mA and/or kV adjustment per patient size (includes targeted exams where dose is matched to clinical indication); or iterative reconstruction. Contrast material: OMNI 350; Contrast volume: 95 ml; Contrast route: INTRAVENOUS (IV); COMPARISON: CR XR hip BI m 5V wo/w pel* [id number] 01/24/2024 8:18 AM RADIATION DOSE METRICS: Total DLP (mGy-cm): 397.26 FINDINGS: Bones/joints: A left hip prosthesis is well seated and well aligned. No acute bony abnormality noted. Soft tissues: There is an area of subcutaneous soft tissue mass effect noted just posterior and lateral the left hip joint. This area measures 6.6 x 3.4 cm in the axial plane and there is surrounding subcutaneous edema along with skin thickening. No fluid collection can be seen. CT/CT hip LT w con [id number] IMPRESSION: Area of subcutaneous mass effect lateral and posterior to the left hip joint. Favor this to represent old hematoma and scarring from previous surgery. However, I cannot totally exclude phlegmon and possible early abscess
[2024-02-22] MEDS: iohexol 350 mg/mL 500 mL Btl (per mL) IV (14:33)
[2024-02-22 14:55] LABS: Blood Urea Nitrogen 10 mg/dL (8-23)
== END 2024-02-22 13:59 | disposition home or self-care (01) ==
LOC: RAD 13:59
PROVIDERS: PCP Family Medicine; Visit Provider Physician Assistant
DX: R22.42 Localized swelling, mass and lump, left lower limb (principal); Z96.642 Presence of left artificial hip joint
CPT/HCPCS: 73701; 82565; 84520

== ENCOUNTER → 2024-03-13 10:40 | Outpatient (BNVA) | payer MEDICARE, MEDICAID, SELFPAY | PROVIDERS: PCP Family Medicine; Visit Provider Student in an Organized Health Care Education/Training Program | DX: M79.89 Other specified soft tissue disorders (principal); M25.552 Pain in left hip | CPT/HCPCS: 99213 ==

== ENCOUNTER → 2024-03-19 12:59 | Outpatient (BNVA) | payer MEDICARE, MEDICAID, SELFPAY | PROVIDERS: PCP Family Medicine; Visit Provider Thoracic Surgery (Cardiothoracic Vascular Surgery) | DX: I96 Gangrene, not elsewhere classified (principal); L89.892 Pressure ulcer of other site, stage 2 | CPT/HCPCS: 97597; 99213 ==

== ENCOUNTER → 2024-03-26 14:00 | Outpatient (BNVA) | payer MEDICARE, MEDICAID, SELFPAY | PROVIDERS: PCP Family Medicine; Visit Provider Thoracic Surgery (Cardiothoracic Vascular Surgery) | DX: I96 Gangrene, not elsewhere classified (principal); L89.892 Pressure ulcer of other site, stage 2 | CPT/HCPCS: 97597 ==

== ENCOUNTER → 2024-04-08 09:45 | Outpatient (BNVA) | payer MEDICARE, MEDICAID, SELFPAY | PROVIDERS: PCP Family Medicine; Visit Provider Thoracic Surgery (Cardiothoracic Vascular Surgery) | DX: I96 Gangrene, not elsewhere classified (principal); L89.892 Pressure ulcer of other site, stage 2 | CPT/HCPCS: 97597; A6021; A6248 ==

== ENCOUNTER → 2024-04-15 10:26 | Outpatient (BNVA) | payer MEDICARE, MEDICAID, SELFPAY | PROVIDERS: PCP Family Medicine; Visit Provider Thoracic Surgery (Cardiothoracic Vascular Surgery) | DX: L89.892 Pressure ulcer of other site, stage 2 (principal); I96 Gangrene, not elsewhere classified | CPT/HCPCS: 97597; A6212 ==

== ENCOUNTER → 2024-04-22 09:52 | Outpatient (BNVA) | payer MEDICARE, MEDICAID, SELFPAY | PROVIDERS: PCP Family Medicine; Visit Provider Thoracic Surgery (Cardiothoracic Vascular Surgery) | DX: I96 Gangrene, not elsewhere classified (principal); L89.892 Pressure ulcer of other site, stage 2 | CPT/HCPCS: 11042 ==

== ENCOUNTER → 2024-04-29 09:32 | Outpatient (BNVA) | payer MEDICARE, MEDICAID, SELFPAY | PROVIDERS: PCP Family Medicine; Visit Provider Thoracic Surgery (Cardiothoracic Vascular Surgery) | DX: I96 Gangrene, not elsewhere classified (principal); L89.893 Pressure ulcer of other site, stage 3 | CPT/HCPCS: 11042 ==

== ENCOUNTER → 2024-05-13 09:48 | Outpatient (BNVA) | payer MEDICARE, MEDICAID, SELFPAY | PROVIDERS: PCP Family Medicine; Visit Provider Thoracic Surgery (Cardiothoracic Vascular Surgery) | DX: I96 Gangrene, not elsewhere classified (principal); L89.893 Pressure ulcer of other site, stage 3 | CPT/HCPCS: 81000; 87086; 97597; A6210; A6212 ==

== ENCOUNTER → 2024-05-20 09:43 | Outpatient (BNVA) | payer MEDICAID, SELFPAY | PROVIDERS: PCP Family Medicine; Visit Provider Physician Assistant | DX: M17.0 Bilateral primary osteoarthritis of knee (principal) | CPT/HCPCS: 20610; 99213; J3301 ==

== ENCOUNTER → 2024-06-17 10:12 | Outpatient (BNVA) | payer MEDICARE, MEDICAID, SELFPAY | PROVIDERS: PCP Family Medicine; Visit Provider Student in an Organized Health Care Education/Training Program | DX: M79.89 Other specified soft tissue disorders (principal); Z96.642 Presence of left artificial hip joint | CPT/HCPCS: 99213 ==

== ENCOUNTER → 2024-08-01 11:26 | Outpatient (BNVA) | payer MEDICARE, MEDICAID, SELFPAY | PROVIDERS: PCP Family Medicine; Visit Provider Family Medicine | DX: Z00.00 Encounter for general adult medical examination without abnormal findings (principal); Z13.6 Encounter for screening for cardiovascular disorders; E55.9 Vitamin D deficiency, unspecified; R30.0 Dysuria | CPT/HCPCS: 80053; 80061; 82306; 85025; 87077; 87086; 87184 ==

== ENCOUNTER → 2024-08-20 09:17 | Outpatient (BNVA) | payer MEDICARE, MEDICAID, SELFPAY | PROVIDERS: PCP Family Medicine; Visit Provider Physician Assistant | DX: M17.4 Other bilateral secondary osteoarthritis of knee (principal); Z71.89 Other specified counseling | CPT/HCPCS: 20610; 99213; J3301; J9999 ==

== ENCOUNTER 2024-10-30 09:35 | Inpatient (IN) | payer OTHER, MEDICAID, SELFPAY ==
[2024-10-30] VITALS (44 sets, daily range): BP systolic 110–148; BP diastolic 60–95; PULSE 82–157; RESP 16–25; TEMP 36.4–36.9; O2SAT 81–100; BMI 24.1
--- NOTE | 2024-10-30 09:47 | XR_ITS ---
WS: [id number] Pelvis, AP view, 10/30/2024 Clinical Data: fall Comparison: Pelvis and both hips, 01/24/2024 Findings: No fractures or dislocations are seen. The SI joints and pubic symphysis are intact. The soft tissues are not remarkable. The right hip shows minimal narrowing. 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 XR/XR pelvis 1-2V* [id number] Impression: 1. Negative for hip or pelvic fracture. 2. Stable left hip arthroplasty.
--- NOTE | 2024-10-30 09:51 | XR_ITS ---
WS: [id number] Portable AP semiupright chest, 10/30/2024 Clinical Data: dyspnea/cough Comparison: Portable chest, 10/25/2023 Findings: No nodules, masses or effusions are seen. The heart is normal. The pulmonary vascularity is not increased. No pneumonia or pneumothorax is seen. The aortic arch and descending thoracic aorta show calcification and mild tortuosity. There are calcified granulomas in both lungs. There are monitor leads on the chest wall. XR/XR chest 1V portable [id number] Impression: Atherosclerosis and old granulomatous disease.
--- NOTE | 2024-10-30 09:54 | ECG_ITS ---
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 Measurements Intervals [place] Rate: 116 P: 0 [place]: 0 QRS: -43 QRSD: 125 T: 97 QT: 350 QTc: 487 Interpretive Statements ATRIAL FIBRILLATION WITH RAPID VENTRICULAR RESPONSE LEFT AXIS DEVIATION [QRS AXIS < -30] VOLTAGE CRITERIA FOR LVH PROBABLE LATERAL MYOCARDIAL INFARCTION , OF INDETERMINATE AGE [35 ms Q WAVE IN I/aVL/V5/V6] Compared to ECG 10/25/2023 16:57:36 Left-axis deviation now present Electronically Signed On 10-30-2024 14:00:39 CDT by Jorge Alberto Jenkins M.D. [email or web address] [email or web address]
[2024-10-30 10:03] LABS: Basophils % 0.1 %; Lymphocytes # 0.7 10^3/uL (0.8-4.8); Lymphocytes % 6.9 %; Mean Corpuscular HGB Conc 34.9 g/dL (30-55); Mean Corpuscular Hemoglobin 29.1 pg (27-33); Mean Corpuscular Volume 83.5 fl (85-98); Mean Platelet Volume 10.5 fL (7.4-10.4); Monocytes # 0.7 10^3/uL (0.2-0.9); Monocytes % 7.4 %; Neutrophils # 8.24 10^3/uL (1.8-7.7); Neutrophils % 85.3 %; Nucleated Red Blood Cells % 0 %; Platelet Count 163 10^3/cmm (157-399); Red Blood Count 5.63 10^6/uL (3.85-5.65); Red Cell Distribution Width 12.6 % (12.1-15.1); White Blood Count 9.67 10^3/uL (3.29-11.43)
[2024-10-30] MEDS: dilTIAZem 5 mg/mL SDV 5 mL 10 MG IVP (10:09)
[2024-10-30] MEDS: dilTIAZem 100 MG in sodium chloride 0.9% (add-van) 100 ML IV (10:20)
[2024-10-30 10:34] LABS: Alanine Aminotransferase 49 U/L (0-33); Alkaline Phosphatase 97 U/L (35-105); Anion Gap 19.5 (5-19); Aspartate Amino Transferase 116 U/L (0-32); Blood Urea Nitrogen 27 mg/dL (8-23); Calcium 9.9 mg/dL (8.5-10.5); Carbon Dioxide 23 mmol/L (22-29); Chloride 101 mmol/L (98-107); Creatinine Clr Calc Pharmacy 42.8601; Globulin 3.1 g/dL (1.3-4.6); Glucose 116 mg/dL (65-115); Osmolality Calculated 298 mOsm/kg (285-295); Sodium 141 mmol/L (136-145); Thyroid Stimulating Hormone 0.97 uIU/mL (0.27-4.20); Total Bilirubin 0.8 mg/dL (0.15-1.2); Total Protein 7.1 g/dL (6.6-8.7)
[2024-10-30 10:41] LABS: Potassium 2.5 mmol/L (3.5-5.1)
[2024-10-30 10:53] LABS: Creatine Phosphokinase 3043 U/L (26-192)
--- NOTE | 2024-10-30 10:56 | XR_ITS ---
WS: [email or web address] Left shoulder, 3 views, 10/30/2024 Clinical Data: trauma Comparison: None. Findings: No fractures or dislocations are seen. There is irregularity of the greater tuberosity and the adjacent glenoid fossa of the left glenohumeral joint. The AC joint is normal. The adjacent left clavicle, left scapula and ribs are normal. The soft tissues are unremarkable. There is a monitor lead on the chest wall. XR/XR shoulder LT min 2V* [id number] Impression: Osteoarthritis of the left glenohumeral joint.
--- NOTE | 2024-10-30 10:59 | W.ED.FALL ---
HPI - Fall General: Chief Complaint: Fall Stated Complaint: fall Time Seen by Provider: 10/30/24 09:42 History of Present Illness: 88-year-old female with complaint of having fallen. She was found on the floor this morning on the floor by family. She had been down probably overnight. She had soiled herself. She denies any chest pain she is complaining of little bit of left shoulder pain left hip pain. No chest pain no shortness of breath no other symptoms. No abdominal pain. Patient is in A-fib with RVR. Associated symptoms-after fall: Denies abdominal pain, chest pain or neck pain Related Data Home Medications ?Medication ?Instructions ?Recorded ?Confirmed aspirin 81 mg tablet,delayed 81 mg PO DAILY 04/08/24 08/22/24 release Previous Rx's ?Medication ?Instructions ?Recorded corset brace #1 ea 08/18/21 right medial offloader brace #1 ea 03/20/23 DME: Rolling walker with Brakes #1 ea 12/06/23 acebutolol 400 mg capsule 400 mg PO BID #180 caps 01/30/24 DME: WHEELCHAIR #1 ea 04/08/24 alendronate 70 mg tablet (Fosamax) 70 mg PO Q7D #12 tabs 08/01/24 atorvastatin 40 mg tablet 40 mg PO DAILY #90 tabs 08/01/24 furosemide 20 mg tablet (Lasix) 20 mg PO DAILY #90 tabs 08/01/24 losartan 50 mg tablet 50 mg PO DAILY #90 tabs 08/01/24 potassium chloride 20 mEq 20 meq PO DAILY #90 tabs 08/01/24 tablet,extended release(part/cryst) (Klor-Con M) sertraline 100 mg tablet 100 mg PO QAM #90 tabs 08/01/24 sulfamethoxazole 200 20 ml PO Q12H 7 days #280 mL 08/06/24 mg-trimethoprim 40 mg/5 mL oral suspension Allergies Allergy/AdvReac Type Severity Reaction Status Date / Time Penicillins Allergy Unknown Verified 08/20/24 09:29 Review of Systems Const: Denies: fever(s) or chills Card: Denies: chest pain Resp: Denies: dyspnea GI: Denies: abdominal pain : Denies: dysuria, urinary frequency or urinary urgency Musc: Denies: neck pain or back pain Skin/Breast: Denies: rash [facility] ED PFSH: Medical History Ischemic heart disease Cervical disc disease GERD (gastroesophageal reflux disease) Benign essential tremor Generalized anxiety disorder Osteopenia last DEXA 2020 Elevated LFTs Right wrist fracture Degenerative arthritis of knee, bilateral Compression fracture T12 after accident Hiatal hernia Pulmonary nodule 9 mm GUILHERME, 10 mm Inferior right fissure Hypertension Closed fracture of neck of left femur Surgical History Hx of cataract surgery History of ankle surgery Left Hx of cholecystectomy History of hip surgery left hip Family History Other CAD (coronary artery disease) Heart disease Hypertension Denies family history of Diabetes mellitus, type 2 Dementia TIA (transient ischemic attack) Stroke Social History Smoking and tobacco/nicotine status: former use of tobacco/nicotine Quit status (tobacco/nicotine): has quit using Year quit tobacco: 1964 Former quit date comment: About 10-15 pack years Alcohol intake: never Substance/Drug Use: never Physical Exam Const: GENERAL APPEARANCE: cooperative ORIENTATION/CONSCIOUSNESS: Yes awake, Yes oriented to person, Yes oriented to place and Yes oriented to time HENMT: COMMON NORMALS: normocephalic, atraumatic and hearing grossly normal bilaterally HEAD & SCALP: normocephalic and atraumatic Resp: COMMON NORMALS: normal respiratory effort, No retractions, No use of accessory muscles and clear to auscultation bilaterally AUSCULTATION: clear to auscultation bilaterally Cardio: COMMON NORMALS: No murmurs present (Cardio) RATE: tachycardic RHYTHM: abnormal rhythm irregularly irregular GI: COMMON NORMALS: Soft to palpation and No hepatosplenomegaly present AUSCULTATION: Yes normoactive bowel sounds PALPATION: Yes Soft to palpation, No Tenderness to palpation present (GI), No Guarding due to palpation present (GI) and Yes No hepatosplenomegaly present Extremity: COMMON NORMALS: normal to inspection, capillary refill normal, no clubbing, cyanosis or edema, no calf tenderness and no pedal edema Neuro: SENSORIUM/ORIENTATION: Yes oriented to person, Yes oriented to place and Yes oriented to time Skin: COMMON NORMALS: no rashes or lesions noted GENERAL SKIN EXAM: no rashes or lesions noted Course Vital Signs: Vital signs: Vital Signs Temperature 97.6 F 10/30/24 09:40 Pulse Rate 157 H 10/30/24 09:40 Respiratory Rate 16 10/30/24 09:40 Blood Pressure 115/91 10/30/24 09:40 Pulse Oximetry 99 10/30/24 09:40 Oxygen Delivery Me thod Room Air 10/30/24 09:40 MDM - Fall Medical Decision Making Patient presents in A-fib with RVR. She is also hypokalemic and has some mild rhabdomyolysis. The troponin is elevated. discussed with hospitalist, will admit Medical Records I reviewed the patient's medical records. Lab Data I reviewed the patient's lab results. 10/30/24 09:54 10/30/24 09:54 Radiology Impressions Pelvis X-Ray 10/30/24 09:47 Impression: 1. Negative for hip or pelvic fracture. 2. Stable left hip arthroplasty. Chest X-Ray 10/30/24 09:51 Impression: Atherosclerosis and old granulomatous disease. Laboratory Results WBC 9.67 10^3/uL (3.29-11.43) 10/30/24 09:54 RBC 5.63 10^6/uL (3.85-5.65) 10/30/24 09:54 Hgb 16.40 g/dL (11.27-16.99) 10/30/24 09:54 Hct 47.0 % (36-47) 10/30/24 09:54 MCV 83.5 fl (85-98) L 10/30/24 09:54 MCH 29.1 pg (27-33) 10/30/24 09:54 MCHC 34.9 g/dL (30-55) 10/30/24 09:54 RDW 12.6 % (12.1-15.1) 10/30/24 09:54 Plt Count 163 10^3/cmm (157-399) 10/30/24 09:54 MPV 10.5 fL (7.4-10.4) H 10/30/24 09:54 Neut % (Auto) 85.3 % 10/30/24 09:54 Lymph % (Auto) 6.9 % 10/30/24 09:54 Stevens % (Auto) 7.4 % 10/30/24 09:54 Eos % (Auto) 0.0 % 10/30/24 09:54 Baso % (Auto) 0.1 % 10/30/24 09:54 Neut # (Auto) 8.24 10^3/uL (1.8-7.7) H 10/30/24 09:54 Lymph # (Auto) 0.7 10^3/uL (0.8-4.8) L 10/30/24 09:54 Stevens # (Auto) 0.7 10^3/uL (0.2-0.9) 10/30/24 09:54 Eos # (Auto) 0.0 10^3/uL (0.0-0.8) 10/30/24 09:54 Baso # (Auto) 0.0 10^3/uL (0.0-0.1) 10/30/24 09:54 Nucleated RBC % (auto) 0 % 10/30/24 09:54 Nucleated RBCs # 0.0 /100WBC 10/30/24 09:54 Sodium 141 mmol/L (136-145) 10/30/24 09:54 Potassium 2.5 mmol/L (3.5-5.1) L* 10/30/24 09:54 Chloride 101 mmol/L (98-107) 10/30/24 09:54 Carbon Dioxide 23 mmol/L (22-29) 10/30/24 09:54 Anion Gap 19.5 (5-19) H 10/30/24 09:54 BUN 27 mg/dL (8-23) H 10/30/24 09:54 Creatinine 0.9 mg/dL (0.5-0.9) 10/30/24 09:54 GFR Calculation Not Reportable 10/30/24 09:54 Glucose 116 mg/dL (65-115) H 10/30/24 09:54 Calculated Osmolality 298 mOsm/kg (285-295) H 10/30/24 09:54 Calcium 9.9 mg/dL (8.5-10.5) 10/30/24 09:54 Total Bilirubin 0.8 mg/dL (0.15-1.2) 10/30/24 09:54 AST 116 U/L (0-32) H 10/30/24 09:54 ALT 49 U/L (0-33) H 10/30/24 09:54 Alkaline Phosphatase 97 U/L (35-105) 10/30/24 09:54 Creatine Kinase 3043 U/L (26-192) H* 10/30/24 09:54 Total Protein 7.1 g/dL (6.6-8.7) 10/30/24 09:54 Albumin 4.0 g/dL (3.5-5.2) 10/30/24 09:54 Globulin 3.1 g/dL (1.3-4.6) 10/30/24 09:54 TSH 0.97 uIU/mL (0.27-4.20) 10/30/24 09:54 All radiology interpretation(s) finalized by discharge Discharge Plan Discharge Patient Disposition: Admitted As Inpatient Clinical Impression: Atrial fibrillation with rapid ventricular response, S/P hip hemiarthroplasty, Rhabdomyolysis, Hypokalemia, Dementia Condition: Stable Coding Level of Care Code ED Microbiology Laboratory Manager for Yang Lopez
[2024-10-30 11:20] LABS: Troponin(5th) Baseline 91 ng/L (0-10)
[2024-10-30] MEDS: potassium chloride oral liq 20 mEq/15 mL UDC 40 MEQ PO (11:23)
--- NOTE | 2024-10-30 12:07 | PC.NURSE ---
FULL BED CHANGE DONE ON PT.
[2024-10-30] MEDS: ondansetron 2 mg/ML SDV 2 mL 4 MG IVP ×2 (12:10→19:15)
[2024-10-30 12:17] LABS: Troponin 5 2HR 84.14 ng/L (0-10)
[2024-10-30 12:22] LABS: Troponin 5 2HR Delta -6.86 ABS# (0-10)
--- NOTE | 2024-10-30 12:41 | PC.NURSE ---
PT OXYGEN SATURATION DROPPED WHILE SLEEPING. PT PLACED ON 2L NASAL CANNULA FOR COMFORT.
--- NOTE | 2024-10-30 12:55 | ECG_ITS ---
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 Measurements Intervals [place] Rate: 96 P: 0 [place]: 0 QRS: -43 QRSD: 125 T: 105 QT: 381 QTc: 483 Interpretive Statements ATRIAL FIBRILLATION POSSIBLE RIGHT VENTRICULAR CONDUCTION DELAY [RSR (QR) IN V1/V2] VOLTAGE CRITERIA FOR LVH [MEETS CRITERIA IN ONE OF: R(aVL), S(V1), R(V5), R(V5/V6)+S(V1)] LATERAL MYOCARDIAL INFARCTION , OF INDETERMINATE AGE [40+ ms Q WAVE AND/OR ST/T ABNORMALITY IN I/aVL/V5/V6] Compared to ECG 10/30/2024 09:54:29 No significant changes Electronically Signed On 10-30-2024 14:01:15 CDT by Jorge Alberto Jenkins M.D. [email or web address] [id number]
--- NOTE | 2024-10-30 15:26 | PM.HP ---
Providers/Chief Complaint Primary Care Provider: Hernan Suarez MD Chief Complaint: fall History of Present Illness Deirdre Connolly is a 88 year old female with a history of dementia, mitral valve disease, hypertension, pulmonary nodule, GERD, generalized anxiety disorder, osteopenia, and prior stroke, presenting after being found down on the floor at home by family, suspected to have been down overnight. The patient did not recall the fall. She had soiled herself and complained of left shoulder and left hip pain. Imaging in the emergency department revealed no hip or pelvic fracture, a stable left hip arthroplasty, and osteoarthritis of the left glenohumeral joint. She was noted to be more confused than usual today. There is a recent history of increased confusion, difficulty with home temperature control, and decreased appetite for sweets. She had a sore throat and was reportedly sick earlier in the week. The patient has had episodes of diarrhea and vomiting, including after receiving oral potassium in the ED. Diarrhea ongoing possibly for a few months. She is not usually on oxygen at home. There is no report of chest pain, chest burning, or palpitations, though she did note her heart felt like it was racing at times. She has a history of multiple prior falls, including a hip fracture three years ago and a prior arm/elbow fracture. She uses a walker and cane for mobility. The patient denies current abdominal pain or nausea. She has a good appetite generally. There is a history of frequent urinary tract infections. She does not smoke, drink alcohol, or use illicit substances. Family is involved in her care, and she lives independently with some assistance. Review of Systems Const: Reports: malaise (Starting Tue); Denies: fever(s), chills or body aches Eyes: Denies: change in vision, eye discomfort or eye redness ENMT: Denies: throat pain, oral sores or ear or mastoid pain Card: Denies: chest pain, edema, pre-syncope or dyspnea on exertion Resp: Denies: dyspnea, productive cough, change in phlegm color or hemoptysis GI: Reports: nausea, vomiting and diarrhea (few months); Denies: abdominal pain, constipation, hematochezia or melena : Denies: flank pain, urinary frequency or hematuria Musc: Denies: back pain, joint swelling or joint redness Skin/Breast: Denies: rash or new lesions Neuro: Reports: frequent falls and confusion; Denies: headache(s), numbness in extremities, weakness in extremities, dizziness or seizure-like activity Endo: Denies: polyuria or polydipsia Clarence/Lymph: Denies: easy bleeding or tender lymph nodes All/Imm: Denies: urticaria or tongue swelling Medications/Allergies Home Medications ?Medication ?Instructions ?Recorded ?Confirmed ?Last Taken ?Type corset brace #1 ea 08/18/21 10/30/24 Unknown Rx right medial offloader brace #1 ea 03/20/23 10/30/24 Unknown Rx DME: Rolling walker with Brakes #1 ea 12/06/23 10/30/24 Unknown Rx acebutolol 400 mg capsule 400 mg PO BID #180 caps 01/30/24 10/30/24 10/28/24 Rx DME: WHEELCHAIR #1 ea 04/08/24 10/30/24 Unknown Rx aspirin 81 mg tablet,delayed 81 mg PO DAILY 04/08/24 10/30/24 Unknown History release alendronate 70 mg tablet (Fosamax) 70 mg PO Q7D #12 tabs 08/01/24 10/30/24 10/26/24 Rx atorvastatin 40 mg tablet 40 mg PO DAILY #90 tabs 08/01/24 10/30/24 10/28/24 Rx furosemide 20 mg tablet (Lasix) 20 mg PO DAILY #90 tabs 08/01/24 10/30/24 Unknown Rx losartan 50 mg tablet 50 mg PO DAILY #90 tabs 08/01/24 10/30/24 10/28/24 Rx potassium chloride 20 mEq 20 meq PO DAILY #90 tabs 08/01/24 10/30/24 Unknown Rx tablet,extended release(part/cryst) (Klor-Con M) sertraline 100 mg tablet 100 mg PO QAM #90 tabs 08/01/24 10/30/24 10/28/24 Rx Allergies Allergy/AdvReac Type Severity Reaction Status Date / Time Penicillins Allergy Unknown Verified 08/20/24 09:29 PFSH Acute PFSH: Medical History Ischemic heart disease Cervical disc disease GERD (gastroesophageal reflux disease) Benign essential tremor Generalized anxiety disorder Osteopenia last DEXA 2020 Elevated LFTs Right wrist fracture Degenerative arthritis of knee, bilateral Compression fracture T12 after accident Hiatal hernia Pulmonary nodule 9 mm GUILHERME, 10 mm Inferior right fissure Hypertension Closed fracture of neck of left femur Surgical History Hx of cataract surgery History of ankle surgery Left Hx of cholecystectomy History of hip surgery left hip Family History Other CAD (coronary artery disease) Heart disease Hypertension Denies family history of Diabetes mellitus, type 2 Dementia TIA (transient ischemic attack) Stroke Social History Smoking and tobacco/nicotine status: former use of tobacco/nicotine Quit status (tobacco/nicotine): has quit using Year quit tobacco: 1964 Former quit date comment: About 10-15 pack years Alcohol intake: never Substance/Drug Use: never Vitals/I&O/Wt Last Vital Signs Temp 97.6 F 10/30/24 09:40 Pulse 103 H 10/30/24 15:10 Resp 19 H 10/30/24 15:10 BP 136/90 10/30/24 15:10 Pulse Ox 95 10/30/24 15:10 O2 Del Method Nasal Cannula 10/30/24 13:10 O2 Flow Rate 2 10/30/24 13:10 10/30/24 10/30/24 10/30/24 06:59 14:59 22:59 Intake Total 16.208 / 16.208 Balance 16.208 / 16.208 Weight last 48 hrs Weight 65.771 kg Physical Exam Const: COMMON NORMALS: patient oriented x3 and alert GENERAL APPEARANCE: cooperative ORIENTATION/CONSCIOUSNESS: Yes awake HENMT: COMMON NORMALS: oropharynx normal Neck/C-Spine: COMMON NORMALS: no JVD Resp: COMMON NORMALS: normal respiratory effort and clear to auscultation bilaterally AUSCULTATION: clear to auscultation bilaterally Cardio: COMMON NORMALS: no JVD, S1 normal heart sound present, S2 normal heart sound present and No murmurs present (Cardio) RATE: tachycardic RHYTHM: abnormal rhythm irregularly irregular HEART SOUNDS: S1 normal heart sound present and S2 normal heart sound present GI: COMMON NORMALS: Normal to inspection, nondistended, normoactive bowel sounds present, Soft to palpation and non-tender PALPATION: Yes Soft to palpation Extremity: COMMON NORMALS: no joint enlargement and no pedal edema Neuro: COMMON NORMALS: patient oriented x3 and moves all extremities SENSORIUM/ORIENTATION: Yes alert Skin: COMMON NORMALS: no rashes or lesions noted GENERAL SKIN EXAM: no rashes or lesions noted Data 10/30/24 09:54 10/30/24 09:54 A&P Assessment and plan (1) Atrial fibrillation with rapid ventricular response: Suspected new onset atrial fibrillation with RVR. Reviewed vitals, CBC, chemistry, noted hypokalemia, she did receive supplementation, although did have subsequent vomiting again. Will request repeat chemistry. Reviewed magnesium, normal. Reviewed TSH, is okay. Will need to further assess with echocardiogram once heart rate is little better controlled. Has been requiring Cardizem, currently on max rate. Will add metoprolol 12.5 mg twice daily. Monitor for risk of hypotension. Monitor on telemetry. Being admitted to cardiac stepdown unit. Complete troponin EKG series, so far with moderate troponin elevation, flat trend. Has not had chest pain or pressure. Discussed risk of stroke with her and her family. Unfortunately she is at very high risk of fall, at this time not a candidate for anticoagulation as per consensus. Continue aspirin. (2) Acute encephalopathy: Fall with altered mental status : Suspected acute metabolic encephalopathy, possibly secondary to diarrhea and nausea vomiting, possibly secondary to viral infection. Check respiratory viral panel. Check for C. difficile. Noted hypokalemia. Diarrhea seems to be going on for some time, possibly a month or 2 months. Check urine for possible UTI, will need to be straight cathed. Requested. The patient was found down on the floor at home, likely overnight, with increased confusion and incontinence. She has a history of dementia and prior falls, including hip and arm fractures. Imaging showed no new fractures. The increased confusion may be multifactorial, including possible infection, metabolic derangement, or medication effect. Family reports more confusion than baseline. Risk of further falls remains high due to mobility issues and cognitive impairment. - Admit to cardiac step-down unit for monitoring. - Continue physical therapy evaluation and support for mobility. - Monitor for further falls and reassess safety at home. She has been managing her medications herself, will resume some of her home medications. Unknown if may have accidentally overdosed or missed some medications, although no issues reported by family. Plan Transaminitis: Secondary to rhabdomyolysis. Follow-up liver parameters, CK. Nausea vomiting and diarrhea: Had some malaise on Sunday. Check respiratory viral panel. Diarrhea has been going on for longer, possibly a month or 2. Obtain C. difficile, check stool studies including WBC, Salmonella, Shigella, Campylobacter, Hemoccult. Gentle IV hydration, monitor for fluid overload. Clear liquid diet. Hypokalemia: Received supplementation, with additional vomiting. Recheck potassium. Rhabdomyolysis: CK over 3000. Gentle IV hydration as above, not so much for rhabdomyolysis. But will follow-up CK. Fall: At home and found down likely overnight with subsequent rhabdomyolysis. Seems to been having some worsening of diarrhea, found soiled herself and diarrhea found around the house. She does have frequent falls. Does use a rollator at home. Will get PT assessment. Mild dementia: Has been functioning dependently with help from her family. May not remember the year, but normally knows where she is, manages to make some simple meals for herself and with help manages her medications. History of recurrent urinary tract infections : History of frequent UTIs. Urinalysis is pending. No current urinary symptoms reported, but infection could contribute to confusion. - Obtain urinalysis and urine culture (catheterize if needed). - Start antibiotics if UTI is confirmed. Osteoarthritis and chronic joint pain : Chronic pain in left shoulder (osteoarthritis), knees (described as real bad ), and history of joint replacements. Pain may contribute to mobility issues and fall risk. - Continue supportive care and physical therapy. - Pain management as needed. PDMP PDMP Reviewed: Not Reviewed Attestations Medical Necessity Statement*: Place in observation for additional assessment and management of A-fib with RVR, acute encephalopathy, electrolyte abnormality, rhabdomyolysis in a lady with additional comorbidities as above. Coding Level of Care Code Acute Code for Chg Fwd Diagnoses Atrial fibrillation with rapid ventricular response I48.91 Acute encephalopathy G93.40
[2024-10-30 16:18] LABS: Troponin 5 6HR 91.74 ng/L (0-10); Troponin 5 6HR Delta 0.74 ng/L (0-12)
[2024-10-30] MEDS: dilTIAZem 100 MG in sodium chloride 0.9% (add-van) 100 ML 15 MG IV (16:36)
--- NOTE | 2024-10-30 16:55 | ECG_ITS ---
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 Measurements Intervals [place] Rate: 140 P: 0 [place]: 0 QRS: -48 QRSD: 120 T: 115 QT: 315 QTc: 482 Interpretive Statements ATRIAL FLUTTER/TACHYCARDIA WITH RAPID VENTRICULAR RESPONSE LEFT ANTERIOR FASCICULAR BLOCK [QRS AXIS <= -45, QR IN I, RS IN II] LEFT VENTRICULAR HYPERTROPHY AND ST-T CHANGE [VOLTAGE CRITERIA PLUS ST/T ABNORMALITY] POSSIBLE LATERAL MYOCARDIAL INFARCTION , OF INDETERMINATE AGE [30 ms Q WAVE IN I/aVL/V5/V6] Compared to ECG 10/30/2024 11:03:14 Left anterior fascicular block now present ST (T wave) deviation now present Atrial fibrillation no longer present Myocardial infarct finding still present Electronically Signed On 10-30-2024 17:44:23 CDT by Tari Langley M.D. [id number] [id number]
[2024-10-30] MEDS: metoprolol tartrate 25 mg Tablet 12.5 MG PO (17:39)
[2024-10-30] MEDS: lactated ringers 1,000 ML 30 ML IV (17:39)
[2024-10-30] MEDS: dilTIAZem 60 mg Tablet PO ×2 (17:39→23:31)
[2024-10-30] MEDS: enoxaparin 40 mg/0.4 mL Syringe SUBCUT (17:39)
[2024-10-30 19:13] LABS: Potassium 3.1 mmol/L (3.5-5.1)
[2024-10-30] MEDS: digoxin 250 mcg/ml INJ 2 mL 125 MCG IVP (19:15)
[2024-10-30 19:48] LABS: Bilirubin Urine Negative (Negative); Blood Urine 2+ (Negative); Glucose Urine UA Negative (Normal); Ketones Urine 1+ (Negative); Leukocyte Esterase Urine Negative (Negative); Nitrate Urine Negative (Negative); Protein Urine 2+ (Negative); Specific Gravity, Urine 1.025 (1.005-1.030); Urine Appearance Clear (CLEAR); Urine Color Dark Yellow (Yellow); pH Urine 5.5 (5-7)
[2024-10-30 19:51] LABS: Add Urine Microscopic? YES; Bacteria Urine 1+ /hpf; Hyaline Casts Urine 17.37 /lpf; Squamous Epithelial Cell Urine 0-5 /hpf (0-5); WBC Urine 0-5 /hpf (0-5)
[2024-10-30 21:35] LABS: Adenovirus Not Detected (NOT DETECT); Chlamydia Pneumoniae Not Detected (NOT DETECT); Coronavirus 229E,HKU1,NL63,OC4 Not Detected (NOT DETECT); Human Metapneumovirus Not Detected (NOT DETECT); Human Rhinovirus/Enterovirus Not Detected (NOT DETECT); Influenza A Not Detected (NOT DETECT); Influenza A H1 Not Detected (NOT DETECT); Influenza A H1-2009 Not Detected (NOT DETECT); Influenza A H3 Not Detected (NOT DETECT); Influenza B Not Detected (NOT DETECT); Mycoplasma Pneumoniae Not Detected (NOT DETECT); Parainfluenza Virus Type 1 Not Detected (NOT DETECT); Parainfluenza Virus Type 2 Not Detected (NOT DETECT); Parainfluenza Virus Type 3 Not Detected (NOT DETECT); Parainfluenza Virus Type 4 Not Detected (NOT DETECT); Respiratory Syncytial Virus A Not Detected (NOT DETECT); Respiratory Syncytial Virus B Not Detected (NOT DETECT); SARS-COV-2 Not Detected (NOT DETECT)
[2024-10-30] MEDS: dilTIAZem 100 MG in sodium chloride 0.9% (add-van) 100 ML 12.5 MG IV (23:31)
[2024-10-31] VITALS (8 sets, daily range): BP systolic 97–127; BP diastolic 46–66; PULSE 46–86; RESP 16–28; TEMP 36.4–36.9; O2SAT 95–99
[2024-10-31 05:04] LABS: Basophils % 0.1 %; Hematocrit 44.5 % (36-47); Lymphocytes # 0.9 10^3/uL (0.8-4.8); Lymphocytes % 10.9 %; Mean Corpuscular HGB Conc 33.7 g/dL (30-55); Mean Corpuscular Hemoglobin 29.5 pg (27-33); Mean Corpuscular Volume 87.6 fl (85-98); Monocytes # 1.1 10^3/uL (0.2-0.9); Neutrophils % 74.6 %; Nucleated Red Blood Cells % 0 %; Platelet Count 167 10^3/cmm (157-399); Red Blood Count 5.08 10^6/uL (3.85-5.65); Red Cell Distribution Width 12.6 % (12.1-15.1); White Blood Count 7.78 10^3/uL (3.29-11.43)
[2024-10-31 05:32] LABS: Alanine Aminotransferase 46 U/L (0-33); Albumin Level 3.5 g/dL (3.5-5.2); Alkaline Phosphatase 76 U/L (35-105); Anion Gap 19.7 (5-19); Aspartate Amino Transferase 87 U/L (0-32); Blood Urea Nitrogen 37 mg/dL (8-23); Calcium 9.2 mg/dL (8.5-10.5); Carbon Dioxide 20 mmol/L (22-29); Chloride 105 mmol/L (98-107); Globulin 2.8 g/dL (1.3-4.6); Glucose 108 mg/dL (65-115); Osmolality Calculated 303 mOsm/kg (285-295); Sodium 142 mmol/L (136-145); Total Bilirubin 0.6 mg/dL (0.15-1.2); Total Protein 6.3 g/dL (6.6-8.7)
[2024-10-31 05:41] LABS: Creatine Phosphokinase 1370 U/L (26-192); Potassium 2.7 mmol/L (3.5-5.1)
[2024-10-31] MEDS: dilTIAZem 60 mg Tablet PO ×3 (05:56→17:56)
[2024-10-31] MEDS: sertraline 100 mg Tablet PO (05:56)
[2024-10-31] MEDS: lidocaine 1% 5 ML in potassium chloride premix 100 ML 52.5 ML IV (06:24)
[2024-10-31] MEDS: potassium chloride ER 20 mEq Tablet 40 MEQ PO ×2 (06:25→12:52)
--- NOTE | 2024-10-31 06:55 | PC.NURSE ---
Patient potassium 2.7, Dr Pastor notified and new orders placed.
[2024-10-31] MEDS: potassium chloride ER 20 mEq Tablet PO (09:38)
[2024-10-31] MEDS: metoprolol tartrate 25 mg Tablet 12.5 MG PO (09:38)
[2024-10-31] MEDS: aspirin 81 mg EC Tablet PO (09:38)
[2024-10-31] MEDS: atorvastatin 40 mg Tablet PO (09:39)
[2024-10-31 09:43] LABS: C.Diff PCR (Lab) NEGATIVE (Negative)
--- NOTE | 2024-10-31 09:45 | P.PN_ITS ---
Subjective 2 Subjective: She is feeling a little bit better today, but still having diarrhea. She is awake, alert, responding appropriately. Vitals/I&O/Wt Last Vital Signs Temp 97.6 F 10/31/24 07:49 Pulse 86 10/31/24 07:49 Resp 18 10/31/24 07:49 BP 127/66 10/31/24 07:49 Pulse Ox 95 10/31/24 07:49 O2 Del Method Nasal Cannula 10/31/24 07:49 O2 Flow Rate 2 10/30/24 13:10 10/30/24 10/31/24 10/31/24 22:59 06:59 14:59 Intake Total 182.125 / 198.333 209.250 / 407.583 489.458 / 489.458 Output Total 300 / 300 200 / 500 Balance -117.875 / -101.667 9.250 / -92.417 489.458 / 489.458 Weight last 48 hrs Weight 64.728 kg Weight 65.856 kg Weight 65.771 kg Physical Exam 2 Const: COMMON NORMALS: alert GENERAL APPEARANCE: cooperative O RIENTATION/CONSCIOUSNESS: Yes awake HENMT: COMMON NORMALS: oropharynx normal Neck/C-Spine: COMMON NORMALS: no JVD Resp: COMMON NORMALS: normal respiratory effort and clear to auscultation bilaterally AUSCULTATION: clear to auscultation bilaterally Cardio: COMMON NORMALS: no JVD, S1 normal heart sound present, S2 normal heart sound present and No murmurs present (Cardio) RHYTHM: abnormal rhythm irregularly irregular HEART SOUNDS: S1 normal heart sound present and S2 normal heart sound present GI: COMMON NORMALS: Normal to inspection, nondistended, normoactive bowel sounds present, Soft to palpation and non-tender PALPATION: Yes Soft to palpation Extremity: COMMON NORMALS: no joint enlargement and no pedal edema Neuro: COMMON NORMALS: moves all extremities SENSORIUM/ORIENTATION: Yes alert Skin: COMMON NORMALS: no rashes or lesions noted GENERAL SKIN EXAM: no rashes or lesions noted Data 10/31/24 04:20 10/31/24 04:20 Micro: Microbiology 10/31/24 08:17 Stool Lactoferrin - Final Stool Occult Blood (FIT) - Final A&P Assessment and plan (1) Atrial fibrillation with rapid ventricular response: Improving control of A-fib with RVR. Family was able to bring in her acebutolol which is resumed. Metoprolol stopped. This morning on 5 mg Cardizem drip, weaning off. So far able to stay off. Monitor heart rate control. Monitor for risk of hypotension with CCB and BB. Will obtain echocardiogram. Reviewed chemistry, CBC. Required additional potassium replacement. Will recheck magnesium. Repeat chemistry. Discussed with nursing, patient case manager. Discussed risk of stroke with her and her family. Unfortunately she is at very high risk of fall, at this time not a candidate for anticoagulation as per consensus. Continue aspirin. Consider OLIMPIA closure with PCP. (2) Acute encephalopathy: Improving. Suspected acute metabolic encephalopathy, possibly secondary to diarrhea and nausea vomiting, possibly secondary to viral infection. Check respiratory viral panel. Check for C. difficile. Noted hypokalemia. Diarrhea seems to be going on for some time, possibly a month or 2 months. Reviewed urine, without evidence of UTI. Respiratory viral panel reviewed, negative. C. difficile obtained, reviewed, negative. Lactoferrin and Hemoccult positive. Will obtain plain CT abdomen pelvis. Pending other stool studies. The patient was found down on the floor at home, likely overnight, with increased confusion and incontinence. She has a history of dementia and prior falls, including hip and arm fractures. Imaging showed no new fractures. The increased confusion may be multifactorial, including possible infection, metabolic derangement, or medication effect. Family reports more confusion than baseline. Risk of further falls remains high due to mobility issues and cognitive impairment. - Continue physical therapy evaluation and support for mobility. - Monitor for further falls and reassess safety at home. She has been managing her medications herself, will resume some of her home medications. Unknown if may have accidentally overdosed or missed some medications, although no issues reported by family. Plan Transaminitis: improving.Secondary to rhabdomyolysis. Nausea vomiting and diarrhea: Tolerating some clear liquids today. Had some malaise on Sunday. Reviewed respiratory viral panel. Diarrhea has been going on for longer, possibly a month or 2. Reviewed and negative for C. difficile, positive WBC and Hemoccult. Obtain CT abdomen pelvis. Pending Salmonella, Shigella, Campylobacter, Hemoccult. Gentle IV hydration, monitor for fluid overload. Clear liquid diet. Without abdominal pain or tenderness on exam. No further nausea or vomiting. Persistent diarrhea. Hypokalemia: Received supplementation, with additional vomiting. Recheck potassium and magnesium. Rhabdomyolysis: Reviewed CK, improving. Fall: At home and found down likely overnight with subsequent rhabdomyolysis. Seems to been having some worsening of diarrhea, found soiled herself and diarrhea found around the house. She does have frequent falls. Does use a rollator at home. PT Mild dementia: Has been functioning dependently with help from her family. May not remember the year, but normally knows where she is, manages to make some simple meals for herself and with help manages her medications. History of recurrent urinary tract infections : History of frequent UTIs. Urinalysis is pending. No current urinary symptoms reported, but infection could contribute to confusion. No evidence of infection this admission Osteoarthritis and chronic joint pain : Chronic pain in left shoulder (osteoarthritis), knees (described as real bad ), and history of joint replacements. Pain may contribute to mobility issues and fall risk. - Continue supportive care and physical therapy. - Pain management as needed. PDMP PDMP Reviewed: Not Reviewed Attestations 2 Medical Necessity Statement*: Continue admission for assessment management of new A-fib with RVR, acute encephalopathy, diarrhea with positive fecal leukocytes and occult blood. and High MDM includes amount and/or complexity of data reviewed/ordered [ previous or external records, resulted lab(s)/test(s), ordered lab(s)/test(s) and other healthcare professional discussion] and described risk of complication, morbidity or mortality of management as documented Diagnoses Atrial fibrillation with rapid ventricular response I48.91 Acute encephalopathy G93.40
--- NOTE | 2024-10-31 17:47 | CTR_ITS ---
PROCEDURE INFORMATION: Exam: CT Abdomen And Pelvis Without Contrast Exam date and time: 11/01/2024 6:40 AM Age: 88 years old Clinical indication: Abdominal tenderness; Prior surgery; Surgery date: 6+ months; Surgery type: Lt hip; Additional info: Assess for poss colitis TECHNIQUE: Imaging protocol: Computed tomography of the abdomen and pelvis without contrast. Radiation optimization: All CT scans at this facility use at least one of these dose optimization techniques: automated exposure control; mA and/or kV adjustment per patient size (includes targeted exams where dose is matched to clinical indication); or iterative reconstruction. COMPARISON: CT abdomen pelvis wo con [id number] 12/14/2022 2:46 PM RADIATION DOSE METRICS: Total DLP (mGy-cm): 525.51 FINDINGS: Lungs: Calcified granuloma in the right lower lobe. Mild lingular atelectasis. Liver: Normal. No mass. Gallbladder and biliary ducts: Cholecystectomy. Pancreas: Normal. No ductal dilation. Spleen: Normal. No splenomegaly. Adrenal glands: Normal. No mass. Kidneys and ureters: Normal. No hydronephrosis. Stomach and bowel: There is very mild thickening of the wall of much of the colon and a very mild colitis is present. Appendix: No evidence of appendicitis. Intraperitoneal space: Unremarkable. No free air. No significant fluid collection. Vasculature: Unremarkable. No abdominal aortic aneurysm. Lymph nodes: Unremarkable. No enlarged lymph nodes. Urinary bladder: The urinary bladder is collapsed around a Garrett catheter. Reproductive: Unremarkable as visualized. Bones/joints: Left hip replacement. Soft tissues: Unremarkable. CT/CT abdomen pelvis con [id number] IMPRESSION: Mild extensive colitis with mild thickening of the wall of most of the colon.
[2024-10-31] MEDS: ACEBUTOLOL 400 MG 400 EACH PO (17:56)
[2024-10-31] MEDS: lactated ringers 1,000 ML 30 ML IV (18:00)
[2024-10-31] MEDS: enoxaparin 40 mg/0.4 mL Syringe SUBCUT (18:04)
--- NOTE | 2024-10-31 19:54 | ECG_ITS ---
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 Measurements Intervals [place] Rate: 55 P: 0 [place]: 0 QRS: -36 QRSD: 129 T: 91 QT: 473 QTc: 453 Interpretive Statements ATRIAL FIBRILLATION WITH SLOW VENTRICULAR RESPONSE WITH ABERRANT CONDUCTION OR VENTRICULAR PREMATURE COMPLEXES LEFT AXIS DEVIATION [QRS AXIS < -30] VOLTAGE CRITERIA FOR LVH [MEETS CRITERIA IN ONE OF: R(aVL), S(V1), R(V5), Compared to ECG 10/30/2024 17:07:00 Ventricular premature complex(es) now present Aberrant conduction of supraventricular beat(s) now present Left-axis deviation now present Atrial flutter no longer present Left anterior fascicular block no longer present ST (T wave) deviation no longer present Electronically Signed On 11-02-2024 19:37:33 CDT by Jorge Alberto Jenkins M.D. [email or web address]
--- NOTE | 2024-11-01 00:56 | PC.NURSE ---
Patient was having significant bradycardic episodes with HR in the 30-40 and had [address] Pastor was contacted and made aware of situation. No new orders at this time. Telemetry strips were printed and posted in patient chart.
[2024-11-01 03:21] VITALS: BP 110/63; PULSE 60; RESP 16; TEMP 37.1; O2SAT 95
[2024-11-01 03:56] LABS: Basophils % 0.3 %; Lymphocytes # 0.8 10^3/uL (0.8-4.8); Lymphocytes % 12.5 %; Mean Corpuscular HGB Conc 33.6 g/dL (30-55); Mean Corpuscular Hemoglobin 29.2 pg (27-33); Mean Corpuscular Volume 87.1 fl (85-98); Mean Platelet Volume 12.7 fL (7.4-10.4); Monocytes # 1.2 10^3/uL (0.2-0.9); Monocytes % 17.3 %; Neutrophils % 69.4 %; Nucleated Red Blood Cells % 0 %; Platelet Count 136 10^3/cmm (157-399); Red Blood Count 4.48 10^6/uL (3.85-5.65); Red Cell Distribution Width 12.7 % (12.1-15.1); White Blood Count 6.63 10^3/uL (3.29-11.43)
[2024-11-01 04:15] LABS: Albumin Level 3.4 g/dL (3.5-5.2); Alkaline Phosphatase 79 U/L (35-105); Blood Urea Nitrogen 40 mg/dL (8-23); Calcium 9.1 mg/dL (8.5-10.5); Carbon Dioxide 21 mmol/L (22-29); Chloride 103 mmol/L (98-107); Globulin 2.5 g/dL (1.3-4.6); Glucose 108 mg/dL (65-115); Magnesium 2.3 mg/dL (1.7-2.3); Osmolality Calculated 292 mOsm/kg (285-295); Sodium 136 mmol/L (136-145); Total Bilirubin 0.7 mg/dL (0.15-1.2); Total Protein 5.9 g/dL (6.6-8.7)
[2024-11-01 04:30] LABS: Alanine Aminotransferase 43 U/L (0-33); Anion Gap 15.8 (5-19); Aspartate Amino Transferase 66 U/L (0-32); Potassium 3.8 mmol/L (3.5-5.1)
[2024-11-01] MEDS: sertraline 100 mg Tablet PO (06:00)
[2024-11-01 08:00] VITALS: BP 105/55; PULSE 74; RESP 20; TEMP 36.7; O2SAT 98
[2024-11-01] MEDS: potassium chloride ER 20 mEq Tablet PO (09:41)
[2024-11-01] MEDS: atorvastatin 40 mg Tablet PO (09:41)
[2024-11-01] MEDS: aspirin 81 mg EC Tablet PO (09:41)
[2024-11-01 12:00] VITALS: BP 117/62; PULSE 85; RESP 22; TEMP 36.4; O2SAT 95
--- NOTE | 2024-11-01 13:37 | P.PN_ITS ---
Subjective 2 Subjective: seen this am denies abd pain sitting up in bed, states she is in the hospital however states she does not know why shes is in the hospital Vitals/I&O/Wt Last Vital Signs Temp 98.1 F 11/01/24 08:00 Pulse 74 11/01/24 08:00 Resp 20 H 11/01/24 08:00 BP 105/55 11/01/24 08:00 Pulse Ox 98 11/01/24 08:00 O2 Del Method Room Air 11/01/24 08:00 O2 Flow Rate 2 10/30/24 13:10 10/31/24 11/01/24 11/01/24 22:59 06:59 14:59 Intake Total 730.5 / 1227.250 360 / 360 Output Total 250 / 250 200 / 450 300 / 300 Balance 480.5 / 977.250 -200 / 777.250 60 / 60 Weight last 48 hrs Weight 64.093 kg Weight 64.728 kg Weight 65.856 kg Physical Exam 2 Const: COMMON NORMALS: alert GENERAL APPEARANCE: cooperative O RIENTATION/CONSCIOUSNESS: Yes awake HENMT: COMMON NORMALS: oropharynx normal Neck/C-Spine: COMMON NORMALS: no JVD Resp: COMMON NORMALS: normal respiratory effort and clear to auscultation bilaterally AUSCULTATION: clear to auscultation bilaterally Cardio: COMMON NORMALS: no JVD, S1 normal heart sound present, S2 normal heart sound present and No murmurs present (Cardio) RHYTHM: abnormal rhythm irregularly irregular HEART SOUNDS: S1 normal heart sound present and S2 normal heart sound present GI: COMMON NORMALS: Normal to inspection, nondistended, normoactive bowel sounds present, Soft to palpation and non-tender PALPATION: Yes Soft to palpation Extremity: COMMON NORMALS: no joint enlargement and no pedal edema Neuro: COMMON NORMALS: moves all extremities SENSORIUM/ORIENTATION: Yes alert Skin: COMMON NORMALS: no rashes or lesions noted GENERAL SKIN EXAM: no rashes or lesions noted Urinary Catheter Management: Garrett: Cath Placed During This Visit: yes Reason for Continuing Indwelling Catheter: Accurate Measurement of Urinary Output in Critically Ill Patients Urinary Catheter Date of Insertion: 10/30/24 Urinary Catheter Time of Insertion: 19:00 Garrett Latex Free: Cath Placed During This Visit: no Reason for Continuing Indwelling Catheter: Assist Healing of Perineal & Sacral Wounds- Incontinent Patients Data 11/01/24 01:48 11/01/24 01:48 Micro: Microbiology 10/31/24 08:17 Stool Lactoferrin - Final Stool Occult Blood (FIT) - Final A&P Assessment and plan (1) Atrial fibrillation with rapid ventricular response: Improving control of A-fib with RVR. Family was able to bring in her acebutolol which is resumed. Metoprolol stopped. This morning on 5 mg Cardizem drip, weaning off. So far able to stay off. Monitor heart rate control. Monitor for risk of hypotension with CCB and BB. Will obtain echocardiogram. Reviewed chemistry, CBC. Required additional potassium replacement. Will recheck magnesium. Repeat chemistry. Discussed with nursing, manager of case management. Discussed risk of stroke with her and her family. Unfortunately she is at very high risk of fall, at this time not a candidate for anticoagulation as per consensus. Continue aspirin. Consider OLIMPIA closure with PCP. (2) Acute encephalopathy: Improving. Suspected acute metabolic encephalopathy, possibly secondary to diarrhea and nausea vomiting, possibly secondary to viral infection. Check respiratory viral panel. Check for C. difficile. Noted hypokalemia. Diarrhea seems to be going on for some time, possibly a month or 2 months. Reviewed urine, without evidence of UTI. Respiratory viral panel reviewed, negative. C. difficile obtained, reviewed, negative. Lactoferrin and Hemoccult positive. Will obtain plain CT abdomen pelvis. Pending other stool studies. The patient was found down on the floor at home, likely overnight, with increased confusion and incontinence. She has a history of dementia and prior falls, including hip and arm fractures. Imaging showed no new fractures. The increased confusion may be multifactorial, including possible infection, metabolic derangement, or medication effect. Family reports more confusion than baseline. Risk of further falls remains high due to mobility issues and cognitive impairment. - Continue physical therapy evaluation and support for mobility. - Monitor for further falls and reassess safety at home. She has been managing her medications herself, will resume some of her home medications. Unknown if may have accidentally overdosed or missed some medications, although no issues reported by family. Plan Transaminitis: improving.Secondary to rhabdomyolysis. Nausea vomiting and diarrhea: Tolerating some clear liquids today. Had some malaise on Sunday. Reviewed respiratory viral panel. Diarrhea has been going on for longer, possibly a month or 2. Reviewed and negative for C. difficile, positive WBC and Hemoccult. Obtain CT abdomen pelvis. Pending Salmonella, Shigella, Campylobacter, Hemoccult. Gentle IV hydration, monitor for fluid overload. Clear liquid diet. Without abdominal pain or tenderness on exam. No further nausea or vomiting. Persistent diarrhea. Hypokalemia: Received supplementation, with additional vomiting. Recheck potassium and magnesium. Rhabdomyolysis: Reviewed CK, improving. Fall: At home and found down likely overnight with subsequent rhabdomyolysis. Seems to been having some worsening of diarrhea, found soiled herself and diarrhea found around the house. She does have frequent falls. Does use a rollator at home. PT Mild dementia: Has been functioning dependently with help from her family. May not remember the year, but normally knows where she is, manages to make some simple meals for herself and with help manages her medications. History of recurrent urinary tract infections : History of frequent UTIs. Urinalysis is pending. No current urinary symptoms reported, but infection could contribute to confusion. No evidence of infection this admission Osteoarthritis and chronic joint pain : Chronic pain in left shoulder (osteoarthritis), knees (described as real bad ), and history of joint replacements. Pain may contribute to mobility issues and fall risk. - Continue supportive care and physical therapy. - Pain management as needed. 11/01/2024 Continue all medications as directed. CT abdomen pelvis shows mild extensive colitis with mild thickening of the wall of the most of the colon. Patient was able to have another bowel movement overnight. However unable to tell if it was diarrhea-like or solid stool. I will discussed with nursing staff. She denies any abdominal pain at this time. Secondary to her clinical presentation this hospital admission recently with diarrhea which was worsened but has been going on for about a month. I would like to go ahead and treat with ciprofloxacin and Flagyl at this time. PDMP PDMP Reviewed: Not Reviewed Attestations 2 Medical Necessity Statement*: Continue admission for assessment management of new A-fib with RVR, acute encephalopathy, diarrhea with positive fecal leukocytes and occult blood. Diagnoses Atrial fibrillation with rapid ventricular response I48.91 Acute encephalopathy G93.40
[2024-11-01] MEDS: ciprofloxacin 400 MG/200 ML PREMIX 200 MG IV (14:28)
[2024-11-01] MEDS: metroNIDAZOLE IV 500 MG/100 ML PREMIX 100 MG IV ×2 (15:36→22:47)
[2024-11-01 16:00] VITALS: BP 119/70; PULSE 89; RESP 18; TEMP 36.1; O2SAT 96
--- NOTE | 2024-11-01 17:43 | USCV_ITS ---
Deirdre Connolly Age: 88 Gender: F : 1935 Exam Date: 11/01/2024 07:47 Ordering Phys: Ankush Fishman MD Technologist: Lyle Das [place]am [place] [facility] [place]: a fib BP: 110 / 63 HR: 80 Rhythm: Atrial fibrillation Technical Quality: Adequate MEASUREMENTS (Male / Female) Normal Values 2D ECHO LV Diastolic Diameter PLAX 3.3 cm 4.2 - 5.9 / 3.9 - 5.3 cm IVS Diastolic Thickness 1.2 cm 0.6 - 1.0 / 0.6 - 0.9 cm IVS Systolic Thickness 1.4 cm LVPW Diastolic Thickness 1.7 cm 0.6 - 1.0 / 0.6 - 0.9 cm LVPW Systolic Thickness 1.8 cm LVOT Diameter 2.0 cm LV Ejection Fraction 2D Teich 61.5 % LV Ejection Fraction MOD 4C 71.6 % LV Ejection Fraction MOD 2C 64.4 % LV Ejection Fraction 2C AL 66.2 % LA Diameter 3.7 cm RA Systolic Volume 4C AL 37.0 ml RA Systolic Volume 4C MOD 36.9 ml LA Sys Volume AL 43.5 cm cubed LA Sys Volume Index AL 25.3 cm cubed/m squared Aorta at Sinotubular Diameter 2.2 cm IVC Diameter 1.8 cm M-MODE LA Ao Ratio MM 1.4 AV Cusp Separation MM 1.6 cm DOPPLER AV Peak Velocity 145.3 cm/s LVOT Peak Velocity 109.0 cm/s AV Area Cont Eq vti 2.0 cm squared AV Area Cont Eq pk 2.4 cm squared MV Peak Velocity 128.0 cm/s MV Area PHT 5.0 cm squared Mitral E to A Ratio 84.3 TR Peak Velocity 383.0 cm/s TR Peak Gradient 58.7 mmHg TR Mean Velocity 258.0 cm/s TR Mean Gradient 32.3 mmHg TR Velocity Time Integral 101.6 cm PV Peak Velocity 178.0 cm/s RV Ejection Time 0.3 s FINDINGS Left Ventricle Mild concentric left ventricle hypertrophy. Normal LV systolic function, wall thickness with no regional wall motion abnormalities. Estimated LVEF is normal 65%. Right Ventricle Normal right ventricular size and systolic function. Right Atrium Normal right atrial size. Left Atrium Normal left atrial size. Mitral Valve Mildly thickened mitral valve. Trace mitral regurgitation. Aortic Valve Mildly thickened aortic valve. No aortic stenosis. Tricuspid Valve Structurally normal tricuspid valve. Mild tricuspid regurgitation. Elevated TR gradient 40 to 45 mmHg. Estimated PAP 50 mmHg. Pulmonic Valve Pulmonic valve not well visualized. Trace pulmonary valve regurgitation. Pericardium No pericardial effusion. Aorta Normal size aortic root and proximal ascending aorta. IVC Normal IVC dimension with >50% respiratory change of the inferior vena cava. CONCLUSIONS Mild concentric LVH. Normal LV systolic function. LVEF normal 65%. Normal RV size and systolic function. No significant valvular abnormality noted Elevated right heart and pulmonary pressures (50mmHg). Jorge Alberto Jenkins MD (Electronically Signed) Final Date: 01 November 2024 12:46 S
[2024-11-01 20:00] VITALS: BP 120/70; PULSE 88; RESP 20; TEMP 36.8; O2SAT 96
[2024-11-01 20:15] LABS: Glucose Point of Care 102 mg/dL (70-110)
[2024-11-01] MEDS: pantoprazole 40 mg SDV IVP (20:44)
[2024-11-01] MEDS: enoxaparin 40 mg/0.4 mL Syringe SUBCUT (20:44)
[2024-11-01] MEDS: lidocaine 2% viscous 15 ML, aluminum-mag hydrox-simethicon 30 ML, sucralfate oral liq 1 GM PO (20:50)
[2024-11-01] MEDS: lactated ringers 1,000 ML 30 ML IV (22:47)
[2024-11-02] VITALS (7 sets, daily range): BP systolic 108–151; BP diastolic 58–77; PULSE 76–97; RESP 19–24; TEMP 36.4–37.2; O2SAT 94–98; BMI 23.6
[2024-11-02] MEDS: ciprofloxacin 400 MG/200 ML PREMIX 200 MG IV ×2 (02:31→13:58)
[2024-11-02 04:08] LABS: Basophils % 0.4 %; Eosinophils % 0.4 %; Hematocrit 36.2 % (36-47); Lymphocytes # 0.8 10^3/uL (0.8-4.8); Lymphocytes % 16.4 %; Mean Corpuscular HGB Conc 33.4 g/dL (30-55); Mean Corpuscular Hemoglobin 29.4 pg (27-33); Mean Corpuscular Volume 88.1 fl (85-98); Mean Platelet Volume 10.4 fL (7.4-10.4); Monocytes # 0.7 10^3/uL (0.2-0.9); Monocytes % 13.2 %; Neutrophils # 3.45 10^3/uL (1.8-7.7); Neutrophils % 68.8 %; Nucleated Red Blood Cells % 0 %; Platelet Count 146 10^3/cmm (157-399); Red Blood Count 4.11 10^6/uL (3.85-5.65); Red Cell Distribution Width 12.8 % (12.1-15.1); White Blood Count 5.01 10^3/uL (3.29-11.43)
[2024-11-02 04:25] LABS: Alanine Aminotransferase 32 U/L (0-33); Albumin Level 2.9 g/dL (3.5-5.2); Alkaline Phosphatase 68 U/L (35-105); Anion Gap 12.8 (5-19); Aspartate Amino Transferase 41 U/L (0-32); Blood Urea Nitrogen 21 mg/dL (8-23); Calcium 8.5 mg/dL (8.5-10.5); Carbon Dioxide 23 mmol/L (22-29); Chloride 106 mmol/L (98-107); Creatinine Clr Calc Pharmacy 47.6828; Globulin 2.4 g/dL (1.3-4.6); Glucose 115 mg/dL (65-115); Osmolality Calculated 292 mOsm/kg (285-295); Sodium 139 mmol/L (136-145); Total Bilirubin 0.5 mg/dL (0.15-1.2); Total Protein 5.3 g/dL (6.6-8.7)
[2024-11-02 04:38] LABS: Potassium 2.8 mmol/L (3.5-5.1)
[2024-11-02] MEDS: metroNIDAZOLE IV 500 MG/100 ML PREMIX 100 MG IV ×3 (05:38→21:54)
[2024-11-02] MEDS: sertraline 100 mg Tablet PO (05:38)
[2024-11-02] MEDS: lidocaine 1% 5 ML in potassium chloride premix 100 ML 52.5 ML IV ×2 (05:38→08:19)
[2024-11-02] MEDS: potassium chloride ER 20 mEq Tablet 40 MEQ PO (05:38)
[2024-11-02] MEDS: potassium chloride ER 20 mEq Tablet PO (08:18)
[2024-11-02] MEDS: pantoprazole 40 mg SDV IVP (08:19)
[2024-11-02] MEDS: atorvastatin 40 mg Tablet PO (08:19)
[2024-11-02] MEDS: aspirin 81 mg EC Tablet PO (08:19)
[2024-11-02] MEDS: ACEBUTOLOL 400 MG 400 EACH PO ×2 (10:34→17:45)
--- NOTE | 2024-11-02 11:55 | P.PN_ITS ---
Subjective 2 Subjective: Diarrhea starting to slow down. No diarrhea overnight however had 1 episode this morning. She states today is the first day she has felt good and is starting to feel better., She is pleasantly confused Vitals/I&O/Wt Last Vital Signs Temp 98.0 F 11/02/24 08:00 Pulse 97 11/02/24 08:00 Resp 22 H 11/02/24 08:00 BP 120/70 11/02/24 08:00 Pulse Ox 97 11/02/24 08:00 O2 Del Method Room Air 11/02/24 08:00 O2 Flow Rate 2 10/30/24 13:10 11/01/24 11/02/24 11/02/24 22:59 06:59 14:59 Intake Total 1403.5 / 2003.5 300 / 2303.5 670 / 670 Output Total 650 / 950 400 / 1350 Balance 753.5 / 1053.5 -100 / 953.5 670 / 670 Weight last 48 hrs Weight 64.467 kg Weight 64.093 kg Physical Exam 2 Const: COMMON NORMALS: alert GENERAL APPEARANCE: cooperative O RIENTATION/CONSCIOUSNESS: Yes awake HENMT: COMMON NORMALS: oropharynx normal Neck/C-Spine: COMMON NORMALS: no JVD Resp: COMMON NORMALS: normal respiratory effort and clear to auscultation bilaterally AUSCULTATION: clear to auscultation bilaterally Cardio: COMMON NORMALS: no JVD, S1 normal heart sound present, S2 normal heart sound present and No murmurs present (Cardio) RHYTHM: abnormal rhythm irregularly irregular HEART SOUNDS: S1 normal heart sound present and S2 normal heart sound present GI: COMMON NORMALS: Normal to inspection, nondistended, normoactive bowel sounds present, Soft to palpation and non-tender PALPATION: Yes Soft to palpation Extremity: COMMON NORMALS: no joint enlargement and no pedal edema Neuro: COMMON NORMALS: moves all extremities SENSORIUM/ORIENTATION: Yes alert Skin: COMMON NORMALS: no rashes or lesions noted GENERAL SKIN EXAM: no rashes or lesions noted Urinary Catheter Management: Garrett: Cath Placed During This Visit: yes Reason for Continuing Indwelling Catheter: Accurate Measurement of Urinary Output in Critically Ill Patients Urinary Catheter Date of Insertion: 10/30/24 Urinary Catheter Time of Insertion: 19:00 Garrett Latex Free: Cath Placed During This Visit: no Reason for Continuing Indwelling Catheter: Assist Healing of Perineal & Sacral Wounds- Incontinent Patients Data 11/02/24 03:51 11/02/24 03:51 A&P Assessment and plan (1) Atrial fibrillation with rapid ventricular response: Improving control of A-fib with RVR. Family was able to bring in her acebutolol which is resumed. Metoprolol stopped. This morning on 5 mg Cardizem drip, weaning off. So far able to stay off. Monitor heart rate control. Monitor for risk of hypotension with CCB and BB. Will obtain echocardiogram. Reviewed chemistry, CBC. Required additional potassium replacement. Will recheck magnesium. Repeat chemistry. Discussed with nursing, senior case manager. Discussed risk of stroke with her and her family. Unfortunately she is at very high risk of fall, at this time not a candidate for anticoagulation as per consensus. Continue aspirin. Consider OLIMPIA closure with PCP. (2) Acute encephalopathy: Improving. Suspected acute metabolic encephalopathy, possibly secondary to diarrhea and nausea vomiting, possibly secondary to viral infection. Check respiratory viral panel. Check for C. difficile. Noted hypokalemia. Diarrhea seems to be going on for some time, possibly a month or 2 months. Reviewed urine, without evidence of UTI. Respiratory viral panel reviewed, negative. C. difficile obtained, reviewed, negative. Lactoferrin and Hemoccult positive. Will obtain plain CT abdomen pelvis. Pending other stool studies. The patient was found down on the floor at home, likely overnight, with increased confusion and incontinence. She has a history of dementia and prior falls, including hip and arm fractures. Imaging showed no new fractures. The increased confusion may be multifactorial, including possible infection, metabolic derangement, or medication effect. Family reports more confusion than baseline. Risk of further falls remains high due to mobility issues and cognitive impairment. - Continue physical therapy evaluation and support for mobility. - Monitor for further falls and reassess safety at home. She has been managing her medications herself, will resume some of her home medications. Unknown if may have accidentally overdosed or missed some medications, although no issues reported by family. Plan Transaminitis: improving.Secondary to rhabdomyolysis. Nausea vomiting and diarrhea: Tolerating some clear liquids today. Had some malaise on Sunday. Reviewed respiratory viral panel. Diarrhea has been going on for longer, possibly a month or 2. Reviewed and negative for C. difficile, positive WBC and Hemoccult. Obtain CT abdomen pelvis. Pending Salmonella, Shigella, Campylobacter, Hemoccult. Gentle IV hydration, monitor for fluid overload. Clear liquid diet. Without abdominal pain or tenderness on exam. No further nausea or vomiting. Persistent diarrhea. Hypokalemia: Received supplementation, with additional vomiting. Recheck potassium and magnesium. Rhabdomyolysis: Reviewed CK, improving. Fall: At home and found down likely overnight with subsequent rhabdomyolysis. Seems to been having some worsening of diarrhea, found soiled herself and diarrhea found around the house. She does have frequent falls. Does use a rollator at home. PT Mild dementia: Has been functioning dependently with help from her family. May not remember the year, but normally knows where she is, manages to make some simple meals for herself and with help manages her medications. History of recurrent urinary tract infections : History of frequent UTIs. Urinalysis is pending. No current urinary symptoms reported, but infection could contribute to confusion. No evidence of infection this admission Osteoarthritis and chronic joint pain : Chronic pain in left shoulder (osteoarthritis), knees (described as real bad ), and history of joint replacements. Pain may contribute to mobility issues and fall risk. - Continue supportive care and physical therapy. - Pain management as needed. 11/01/2024 Continue all medications as directed. CT abdomen pelvis shows mild extensive colitis with mild thickening of the wall of the most of the colon. Patient was able to have another bowel movement overnight. However unable to tell if it was diarrhea-like or solid stool. I will discussed with nursing staff. She denies any abdominal pain at this time. Secondary to her clinical presentation this hospital admission recently with diarrhea which was worsened but has been going on for about a month. I would like to go ahead and treat with ciprofloxacin and Flagyl at this time. 11/02/2024 Continue ciprofloxacin and Flagyl Continue aspirin atorvastatin, losartan Patient appears quite euvolemic. Will continue to hold home Lasix at this time secondary to active diarrhea. Cardizem stopped. Continuing home acebutolol. Heart rate has been controlled. Patient on room air. Watch closely for fluid overload as we are holding home Lasix at this time. PDMP PDMP Reviewed: Not Reviewed Attestations 2 Medical Necessity Statement*: Continue admission for assessment management of new A-fib with RVR, acute encephalopathy, diarrhea with positive fecal leukocytes and occult blood. Diagnoses Atrial fibrillation with rapid ventricular response I48.91 Acute encephalopathy G93.40
[2024-11-02 16:38] LABS: Anion Gap 14.4 (5-19); Blood Urea Nitrogen 16 mg/dL (8-23); Calcium 8.4 mg/dL (8.5-10.5); Carbon Dioxide 22 mmol/L (22-29); Chloride 106 mmol/L (98-107); Glucose 103 mg/dL (65-115); Osmolality Calculated 289 mOsm/kg (285-295); Potassium 3.4 mmol/L (3.5-5.1); Sodium 139 mmol/L (136-145)
[2024-11-02] MEDS: enoxaparin 40 mg/0.4 mL Syringe SUBCUT (17:45)
[2024-11-03] VITALS (8 sets, daily range): BP systolic 102–133; BP diastolic 51–84; PULSE 78–96; RESP 16–20; TEMP 36.2–37.4; O2SAT 94–97
[2024-11-03] MEDS: ciprofloxacin 400 MG/200 ML PREMIX 200 MG IV ×2 (01:38→16:01)
[2024-11-03 05:35] LABS: Basophils % 0.3 %; Eosinophils # 0.1 10^3/uL (0.0-0.8); Hematocrit 35.9 % (36-47); Lymphocytes # 0.9 10^3/uL (0.8-4.8); Lymphocytes % 15.5 %; Mean Corpuscular HGB Conc 33.1 g/dL (30-55); Mean Corpuscular Hemoglobin 28.7 pg (27-33); Mean Corpuscular Volume 86.7 fl (85-98); Mean Platelet Volume 10.6 fL (7.4-10.4); Monocytes # 0.8 10^3/uL (0.2-0.9); Monocytes % 12.5 %; Neutrophils # 4.18 10^3/uL (1.8-7.7); Neutrophils % 68.9 %; Nucleated Red Blood Cells % 0 %; Platelet Count 146 10^3/cmm (157-399); Red Blood Count 4.14 10^6/uL (3.85-5.65); Red Cell Distribution Width 12.8 % (12.1-15.1); White Blood Count 6.07 10^3/uL (3.29-11.43)
[2024-11-03 05:55] LABS: Anion Gap 12.9 (5-19); Blood Urea Nitrogen 12 mg/dL (8-23); Calcium 8.4 mg/dL (8.5-10.5); Carbon Dioxide 22 mmol/L (22-29); Chloride 105 mmol/L (98-107); Glucose 89 mg/dL (65-115); Magnesium 1.7 mg/dL (1.7-2.3); Osmolality Calculated 283 mOsm/kg (285-295); Sodium 137 mmol/L (136-145)
[2024-11-03 06:05] LABS: Potassium 2.9 mmol/L (3.5-5.1)
[2024-11-03] MEDS: metroNIDAZOLE IV 500 MG/100 ML PREMIX 100 MG IV ×2 (06:22→16:00)
[2024-11-03] MEDS: sertraline 100 mg Tablet PO (06:22)
[2024-11-03] MEDS: potassium chloride ER 20 mEq Tablet 40 MEQ PO (06:22)
--- NOTE | 2024-11-03 06:58 | P.DS_ITS ---
Discharge Providers Date of Admission: 10/31/24 18:14 Date of Discharge: November 03, 2024 Attending Provider at Admission: Ankush Fishman Attending Provider at Discharge: Maria Del Carmen Simpson MD Primary Care Provider: Hernan Suarez MD Diagnoses at Discharge Discharge Diagnosis (1) Atrial fibrillation with rapid ventricular response: Status: Acute (2) Acute encephalopathy: Status: Acute (3) Pancolitis: Status: Acute Reason for Visit Reason for Visit: fall Hospital Course Hospital Course Deirdre Connolly is a 88 year old female with a history of dementia, mitral valve disease, hypertension, pulmonary nodule, GERD, generalized anxiety disorder, osteopenia, and prior stroke, presenting after being found down on the floor at home by family, suspected to have been down overnight. She had soiled herself and complained of left shoulder and left hip pain. Imaging in the emergency department revealed no hip or pelvic fracture, a stable left hip art hroplasty, and osteoarthritis of the left glenohumeral joint. Patient also complained of several episodes of diarrhea which had been ongoing for about a month or so. CT of the abdomen and pelvis relieved colitis. C. difficile was negative. She received empiric antibiotic treatment with ciprofloxacin and metronidazole which has been converted to oral at the time of discharge. Total recommended duration of treatment to be 10 days. She had hypokalemia related to the diarrhea which was supplemented with oral potassium. She had rhabdomyolysis upon admission with CK over 3000. She received gentle IV hydration, currently her muscle pain is much improved. She was also noted to have A-fib with RVR for which she initially required a Cardizem infusion, this was transitioned to her home dose of Acebutalol 400 mg twice a day. Heart rate remains well-controlled today as does her blood pressure. Patient does not know if she has a history of known A-fib, she is not noted to be on any anticoagulation, presumably related to history of recurrent falls. Per review of notes from primary care provider her recurrent falls have resulted in a scalp hematoma and multiple fractures in the past. She feels clinically improved. No abdominal pain. Diarrhea is improving. No blood in stool. Heart rate and blood pressure remain well-controlled. Patient is being discharged today in stable condition. Physical Exam Narrative: General: No acute distress, AO x3 HEENT: PERRLA, pupils bilaterally equal and reactive, pallors not present Chest: Normal vesicular breath sounds, no added sounds, equal good air entry bilaterally CVS: S1-S2 regular, no murmurs, no tachycardia, no gallops, no rubs Abdomen: Soft, nontender, no organomegaly, bowel sounds present Neuro: No focal deficits, no facial deformity, AO x3, power 5/5 in all limbs Urinary Catheter Management: Garrett: Cath Placed During This Visit: yes Reason for Continuing Indwelling Catheter: Accurate Measurement of Urinary Output in Critically Ill Patients Urinary Catheter Date of Insertion: 10/30/24 Urinary Catheter Time of Insertion: 19:00 Garrett Latex Free: Cath Placed During This Visit: no Reason for Continuing Indwelling Catheter: Assist Healing of Perineal & Sacral Wounds- Incontinent Patients Discharge Data Studies Completed and Pending Completed Studies During Hospitalization Category Date Time Status CT abdomen pelvis wo con [id number] Routine Cat Scan 10/31/24 17:47 Completed XR chest 1V portable [id number] Stat Exams 10/30/24 09:51 Completed XR pelvis 1-2V* [id number] Stat Exams 10/30/24 09:47 Completed XR shoulder LT min 2V* [id number] Stat Exams 10/30/24 10:56 Completed CV. echo complete* [id number] Routine Ultrasound 11/01/24 17:43 Completed Pending at discharge Category Date Time Status Stool Culture - Enteric [Salmonella / Shigella / Campy] Lab 10/30/24 08:17 Received Routine Radiology Impressions Pelvis X-Ray 10/30/24 09:47 Impression: 1. Negative for hip or pelvic fracture. 2. Stable left hip arthroplasty. Chest X-Ray 10/30/24 09:51 Impression: Atherosclerosis and old granulomatous disease. Shoulder X-Ray 10/30/24 10:56 Impression: Osteoarthritis of the left glenohumeral joint. Abdomen/Pelvis CT 10/31/24 17:47 IMPRESSION: Mild extensive colitis with mild thickening of the wall of most of the colon. Laboratory Results WBC 6.07 10^3/uL (3.29-11.43) 11/03/24 05:10 RBC 4.14 10^6/uL (3.85-5.65) 11/03/24 05:10 Hgb 11.90 g/dL (11.27-16.99) 11/03/24 05:10 Hct 35.9 % (36-47) L 11/03/24 05:10 MCV 86.7 fl (85-98) 11/03/24 05:10 MCH 28.7 pg (27-33) 11/03/24 05:10 MCHC 33.1 g/dL (30-55) 11/03/24 05:10 RDW 12.8 % (12.1-15.1) 11/03/24 05:10 Plt Count 146 10^3/cmm (157-399) L 11/03/24 05:10 MPV 10.6 fL (7.4-10.4) H 11/03/24 05:10 Neut % (Auto) 68.9 % 11/03/24 05:10 Lymph % (Auto) 15.5 % 11/03/24 05:10 [place] % (Auto) 12.5 % 11/03/24 05:10 Eos % (Auto) 1.0 % 11/03/24 05:10 Baso % (Auto) 0.3 % 11/03/24 05:10 Neut # (Auto) 4.18 10^3/uL (1.8-7.7) 11/03/24 05:10 Lymph # (Auto) 0.9 10^3/uL (0.8-4.8) 11/03/24 05:10 [place] # (Auto) 0.8 10^3/uL (0.2-0.9) 11/03/24 05:10 Eos # (Auto) 0.1 10^3/uL (0.0-0.8) 11/03/24 05:10 Baso # (Auto) 0.0 10^3/uL (0.0-0.1) 11/03/24 05:10 Nucleated RBC % (auto) 0 % 11/03/24 05:10 Nucleated RBCs # 0.0 /100WBC 11/03/24 05:10 Sodium 137 mmol/L (136-145) 11/03/24 05:10 Potassium 2.9 mmol/L (3.5-5.1) L 11/03/24 05:10 Chloride 105 mmol/L (98-107) 11/03/24 05:10 Carbon Dioxide 22 mmol/L (22-29) 11/03/24 05:10 Anion Gap 12.9 (5-19) 11/03/24 05:10 BUN 12 mg/dL (8-23) 11/03/24 05:10 Creatinine 0.7 mg/dL (0.5-0.9) 11/03/24 05:10 GFR Calculation Not Reportable 11/03/24 05:10 Glucose 89 mg/dL (65-115) 11/03/24 05:10 POC Glucose 102 mg/dL (70-110) 11/01/24 20:11 Calculated Osmolality 283 mOsm/kg (285-295) L 11/03/24 05:10 Calcium 8.4 mg/dL (8.5-10.5) L 11/03/24 05:10 Magnesium 1.7 mg/dL (1.7-2.3) 11/03/24 05:10 Total Bilirubin 0.5 mg/dL (0.15-1.2) 11/02/24 03:51 AST 41 U/L (0-32) H 11/02/24 03:51 ALT 32 U/L (0-33) 11/02/24 03:51 Alkaline Phosphatase 68 U/L (35-105) 11/02/24 03:51 Creatine Kinase 1370 U/L (26-192) H* 10/31/24 04:20 Troponin T Baseline 91 ng/L (0-10) H 10/30/24 09:54 Troponin T 120 Minute 84.14 ng/L (0-10) H 10/30/24 11:44 Delta Troponin T -6.86 ABS# (0-10) L 10/30/24 11:44 Troponin T Hi Sens 6Hr 91.74 ng/L (0-10) H 10/30/24 15:46 Troponin T Hi Sens 6Hr Delta 0.74 ng/L (0-12) 10/30/24 15:46 Total Protein 5.3 g/dL (6.6-8.7) L 11/02/24 03:51 Albumin 2.9 g/dL (3.5-5.2) L 11/02/24 03:51 Globulin 2.4 g/dL (1.3-4.6) 11/02/24 03:51 TSH 0.97 uIU/mL (0.27-4.20) 10/30/24 09:54 Urine Color Dark yellow (Yellow) A 10/30/24 19:25 Urine Appearance Clear (CLEAR) 10/30/24: Urine pH 5.5 (5-7) 10/30/24 Ur Specific [place] 1.025 (1.005-1.030) 10/30/24: Urine Protein 2+ (Negative) A 10/30/24 Urine Glucose (UA) Negative (Normal) 10/30/24: Urine Ketones 1+ (Negative) H 10/30/24: Urine Blood 2+ (Negative) A 10/30/24 Urine Nitrate Negative (Negative) 10/30/24 Urine Bilirubin Negative (Negative) 10/30/24 Urine Urobilinogen 1.0 mg/dL (Negative) 10/30/24 Ur Leukocyte Esterase Negative (Negative) 10/30/24 Urine RBC 3-5 /hpf (0-2) 10/30/24: Urine WBC 0-5 /hpf (0-5) 10/30/24 Ur Squamous Epith Cells 0-5 /hpf (0-5) 10/30/24 Amorphous Sediment Not Reportable 10/30/24: Urine Bacteria 1+ /hpf (NONE) H 10/30/24 Hyaline Casts 17.37 /lpf 10/30/24 Adenovirus (PCR) Not detected (NOT DETECT) 10/30/24 19: C. pneumoniae DNA (PCR) Not detected (NOT DETECT) 10/30/24: C. difficile (PCR) Negative (Negative) 10/31/24 08:17 Coronavirus 229E (PCR) Not detected (NOT DETECT) 10/30/24 19: Human Metapneumovir PCR Not detected (NOT DETECT) 10/30/24 19: Influenza A (H1) PCR Not detected (NOT DETECT) 10/30/24: Influ A (H1/09) PCR Not detected (NOT DETECT) 10/30/24: Influenza A (H3) PCR Not detected (NOT DETECT) 10/30/24 19: Influenza Type A (PCR) Not detected (NOT DETECT) 10/30/24: Influenza Type B (PCR) Not detected (NOT DETECT) 10/30/24: M. pneumoniae (PCR) Not detected (NOT DETECT) 10/30/24 19:30 Parainfluenza 1 (PCR) Not detected (NOT DETECT) 10/30/24 19:30 Parainfluenza 2 (PCR) Not detected (NOT DETECT) 10/30/24 19:30 Parainfluenza 3 (PCR) Not detected (NOT DETECT) 10/30/24 19:30 Parainfluenza 4 (PCR) Not detected (NOT DETECT) 10/30/24 19:30 RSV Type A (PCR) Not detected (NOT DETECT) 10/30/24 19:30 RSV Type B (PCR) Not detected (NOT DETECT) 10/30/24 19:30 Entero/Rhino (PCR) Not detected (NOT DETECT) 10/30/24 19:30 SARS-CoV-2 (PCR) Not detected (NOT DETECT) 10/30/24 19:30 Vitals Last Vital Signs Temp 98.3 F 11/03/24 04:00 Pulse 78 11/03/24 04:00 Resp 17 11/03/24 04:00 BP 116/63 11/03/24 04:00 Pulse Ox 96 11/03/24 04:00 O2 Del Method Room Air 11/03/24 04:00 O2 Flow Rate 2 10/30/24 13:10 Discharge Plan Discharge Patient Disposition: Home Condition: Stable Prescriptions: New ciprofloxacin HCl [Cipro] 500 mg tablet 500 mg PO BID 7 Days Qty: 14 0RF metronidazole 500 mg tablet 500 mg PO Q8H 7 Days Qty: 21 0RF pantoprazole [Protonix] 40 mg tablet,delayed release (DR/EC) 40 mg PO DAILY Qty: 7 0RF Continued (DME) corset brace See Rx Instructions .Route .MEDSUPPLY Qty: 1 0RF Rx Instructions: As directed (DME) right medial offloader brace See Rx Instructions .Route .MEDSUPPLY Qty: 1 0RF Rx Instructions: As directed (DME) DME: Rolling walker with Brakes See Rx Instructions .Route .MEDSUPPLY Qty: 1 0RF Rx Instructions: As directed (DME) DME: WHEELCHAIR See Rx Instructions .Route .MEDSUPPLY Qty: 1 0RF Rx Instructions: As directed. aspirin 81 mg tablet,delayed release (DR/EC) 81 mg PO DAILY losartan 50 mg tablet 50 mg PO DAILY Qty: 90 3RF alendronate [Fosamax] 70 mg tablet 70 mg PO Q7D Qty: 12 3RF atorvastatin 40 mg tablet 40 mg PO DAILY Qty: 90 3RF Lasix 20 mg tablet 20 mg PO DAILY Qty: 90 3RF Rx Instructions: Take one tab on Sunday, Sun, Sun, Sat. If having increased swelling take d aily Klor-Con M20 20 mEq tablet,ER particles/crystals 20 meq PO DAILY Qty: 90 3RF Rx Instructions: Take on days that you take Furosemide sertraline 100 mg tablet 100 mg PO QAM Qty: 90 3RF acebutolol 400 mg capsule 400 mg PO BID Qty: 180 3RF Discharge Orders: Discharge Order (Routine); Ordered 11/03/24 Ordered By: Maria Del Carmen Simpson Referrals: Hernan Suarez MD [Primary Care Provider, [facility]] Discharge Diet: Advance as tolerated and GI Soft Discharge Activity: Resume usual activity Patient Instructions: Opioid Safety Discharge Attestations Time Spent in Discharge Care*: greater than 30 min Quality Metrics Clinical Quality Measures [ No reported AMI, CVA or VTE this stay] Coding Level of Care Code Acute Code for Chg Fwd Diagnoses Atrial fibrillation with rapid ventricular response I48.91 Acute encephalopathy G93.40 Pancolitis K52.9
--- NOTE | 2024-11-03 07:00 | P.DS_ITS ---
Discharge Providers Date of Admission: 10/31/24 18:14 Date of Discharge: November 03, 2024 Attending Provider at Admission: Ankush Fishman Attending Provider at Discharge: Maria Del Carmen Simpson MD Primary Care Provider: Hernan Suarez MD Diagnoses at Discharge Discharge Diagnosis (1) Atrial fibrillation with rapid ventricular response: Status: Acute (2) Acute encephalopathy: Status: Acute (3) Pancolitis: Status: Acute Reason for Visit Reason for Visit: fall Hospital Course Hospital Course Deirdre Connolly is a 88 year old female with a history of dementia, mitral valve disease, hypertension, pulmonary nodule, GERD, generalized anxiety disorder, osteopenia, and prior stroke, presenting after being found down on the floor at home by family, suspected to have been down overnight. She had soiled herself and complained of left shoulder and left hip pain. Imaging in the emergency department revealed no hip or pelvic fracture, a stable left hip art hroplasty, and osteoarthritis of the left glenohumeral joint. Patient also complained of several episodes of diarrhea which had been ongoing for about a month or so. CT of the abdomen and pelvis relieved colitis. C. difficile was negative. She received empiric antibiotic treatment with ciprofloxacin and metronidazole which has been converted to oral at the time of discharge. Total recommended duration of treatment to be 10 days. She had hypokalemia related to the diarrhea which was supplemented with oral potassium. She had rhabdomyolysis upon admission with CK over 3000. She received gentle IV hydration, currently her muscle pain is much improved. She was also noted to have A-fib with RVR for which she initially required a Cardizem infusion, this was transitioned to her home dose of Acebutalol 400 mg twice a day. Heart rate remains well-controlled today as does her blood pressure. Patient does not know if she has a history of known A-fib, she is not noted to be on any anticoagulation, presumably related to history of recurrent falls. Per review of notes from primary care provider her recurrent falls have resulted in a scalp hematoma and multiple fractures in the past. She feels clinically improved. No abdominal pain. Diarrhea is improving. No blood in stool. Heart rate and blood pressure remain well-controlled. Patient is being discharged today in stable condition. Physical Exam Urinary Catheter Management: Garrett: Cath Placed During This Visit: yes, but has since been removed by the nurse Reason for Continuing Indwelling Catheter: Accurate Measurement of Urinary Output in Critically Ill Patients Urinary Catheter Date of Insertion: 10/30/24 Urinary Catheter Time of Insertion: 19:00 Date Urinary Catheter Removed: 11/03/24 Time Urinary Catheter Discontinued: 07:30 Garrett Latex Free: Cath Placed During This Visit: no Reason for Continuing Indwelling Catheter: Assist Healing of Perineal & Sacral Wounds- Incontinent Patients Discharge Data Studies Completed and Pending Completed Studies During Hospitalization Category Date Time Status CT abdomen pelvis wo con [id number] Routine Cat Scan 10/31/24 17:47 Completed XR chest 1V portable [id number] Stat Exams 10/30/24 09:51 Completed XR pelvis 1-2V* [id number] Stat Exams 10/30/24 09:47 Completed XR shoulder LT min 2V* [id number] Stat Exams 10/30/24 10:56 Completed CV. echo complete* [id number] Routine Ultrasound 11/01/24 17:43 Completed Pending at discharge Category Date Time Status Stool Culture - Enteric [Salmonella / Shigella / Campy] Lab 10/30/24 08:17 Received Routine Radiology Impressions Pelvis X-Ray 10/30/24 09:47 Impression: 1. Negative for hip or pelvic fracture. 2. Stable left hip arthroplasty. Chest X-Ray 10/30/24 09:51 Impression: Atherosclerosis and old granulomatous disease. Shoulder X-Ray 10/30/24 10:56 Impression: Osteoarthritis of the left glenohumeral joint. Abdomen/Pelvis CT 10/31/24 17:47 IMPRESSION: Mild extensive colitis with mild thickening of the wall of most of the colon. Laboratory Results WBC 6.07 10^3/uL (3.29-11.43) 11/03/24 05:10 RBC 4.14 10^6/uL (3.85-5.65) 11/03/24 05:10 Hgb 11.90 g/dL (11.27-16.99) 11/03/24 05:10 Hct 35.9 % (36-47) L 11/03/24 05:10 MCV 86.7 fl (85-98) 11/03/24 05:10 MCH 28.7 pg (27-33) 11/03/24 05:10 MCHC 33.1 g/dL (30-55) 11/03/24 05:10 RDW 12.8 % (12.1-15.1) 11/03/24 05:10 Plt Count 146 10^3/cmm (157-399) L 11/03/24 05:10 MPV 10.6 fL (7.4-10.4) H 11/03/24 05:10 Neut % (Auto) 68.9 % 11/03/24 05:10 Lymph % (Auto) 15.5 % 11/03/24 05:10 [place] % (Auto) 12.5 % 11/03/24 05:10 Eos % (Auto) 1.0 % 11/03/24 05:10 Baso % (Auto) 0.3 % 11/03/24 05:10 Neut # (Auto) 4.18 10^3/uL (1.8-7.7) 11/03/24 05:10 Lymph # (Auto) 0.9 10^3/uL (0.8-4.8) 11/03/24 05:10 [place] # (Auto) 0.8 10^3/uL (0.2-0.9) 11/03/24 05:10 Eos # (Auto) 0.1 10^3/uL (0.0-0.8) 11/03/24 05:10 Baso # (Auto) 0.0 10^3/uL (0.0-0.1) 11/03/24 05:10 Nucleated RBC % (auto) 0 % 11/03/24 05:10 Nucleated RBCs # 0.0 /100WBC 11/03/24 05:10 Sodium 137 mmol/L (136-145) 11/03/24 05:10 Potassium 2.9 mmol/L (3.5-5.1) L 11/03/24 05:10 Chloride 105 mmol/L (98-107) 11/03/24 05:10 Carbon Dioxide 22 mmol/L (22-29) 11/03/24 05:10 Anion Gap 12.9 (5-19) 11/03/24 05:10 BUN 12 mg/dL (8-23) 11/03/24 05:10 Creatinine 0.7 mg/dL (0.5-0.9) 11/03/24 05:10 GFR Calculation Not Reportable 11/03/24 05:10 Glucose 89 mg/dL (65-115) 11/03/24 05:10 POC Glucose 102 mg/dL (70-110) 11/01/24 20:11 Calculated Osmolality 283 mOsm/kg (285-295) L 11/03/24 05:10 Calcium 8.4 mg/dL (8.5-10.5) L 11/03/24 05:10 Magnesium 1.7 mg/dL (1.7-2.3) 11/03/24 05:10 Total Bilirubin 0.5 mg/dL (0.15-1.2) 11/02/24 03:51 AST 41 U/L (0-32) H 11/02/24 03:51 ALT 32 U/L (0-33) 11/02/24 03:51 Alkaline Phosphatase 68 U/L (35-105) 11/02/24 03:51 Creatine Kinase 1370 U/L (26-192) H* 10/31/24 04:20 Troponin T Baseline 91 ng/L (0-10) H 10/30/24 09:54 Troponin T 120 Minute 84.14 ng/L (0-10) H 10/30/24 11:44 Delta Troponin T -6.86 ABS# (0-10) L 10/30/24 11:44 Troponin T Hi Sens 6Hr 91.74 ng/L (0-10) H 10/30/24 15:46 Troponin T Hi Sens 6Hr Delta 0.74 ng/L (0-12) 10/30/24 15:46 Total Protein 5.3 g/dL (6.6-8.7) L 11/02/24 03:51 Albumin 2.9 g/dL (3.5-5.2) L 11/02/24 03:51 Globulin 2.4 g/dL (1.3-4.6) 11/02/24 03:51 TSH 0.97 uIU/mL (0.27-4.20) 10/30/24 09:54 Urine Color Dark yellow (Yellow) A 10/30/24: Urine Appearance Clear (CLEAR) 10/30/24 19: Urine pH 5.5 (5-7) 10/30/24 19: Ur Specific [place] 1.025 (1.005-1.030) 10/30/24 19: Urine Protein 2+ (Negative) A 10/30/24 Urine Glucose (UA) Negative (Normal) 10/30/24 Urine Ketones 1+ (Negative) H 10/30/24: Urine Blood 2+ (Negative) A 10/30/24 Urine Nitrate Negative (Negative) 10/30/24 Urine Bilirubin Negative (Negative) 10/30/24 Urine Urobilinogen 1.0 mg/dL (Negative) 10/30/24 Ur Leukocyte Esterase Negative (Negative) 10/30/24 Urine RBC 3-5 /hpf (0-2) 10/30/24 Urine WBC 0-5 /hpf (0-5) 10/30/24 Ur Squamous Epith Cells 0-5 /hpf (0-5) 10/30/24 Amorphous Sediment Not Reportable 10/30/24 Urine Bacteria 1+ /hpf (NONE) H 10/30/24 Hyaline Casts 17.37 /lpf 10/30/24 Adenovirus (PCR) Not detected (NOT DETECT) 10/30/24: C. pneumoniae DNA (PCR) Not detected (NOT DETECT) 10/30/24: C. difficile (PCR) Negative (Negative) 10/31/24 08:17 Coronavirus 229E (PCR) Not detected (NOT DETECT) 10/30/24 19: Human Metapneumovir PCR Not detected (NOT DETECT) 10/30/24 19:30 Influenza A (H1) PCR Not detected (NOT DETECT) 10/30/24: Influ A (H1/09) PCR Not detected (NOT DETECT) 10/30/24 19: Influenza A (H3) PCR Not detected (NOT DETECT) 10/30/24 19: Influenza Type A (PCR) Not detected (NOT DETECT) 10/30/24 19: Influenza Type B (PCR) Not detected (NOT DETECT) 10/30/24: M. pneumoniae (PCR) Not detected (NOT DETECT) 10/30/24 19: Parainfluenza 1 (PCR) Not detected (NOT DETECT) 10/30/24 19: Parainfluenza 2 (PCR) Not detected (NOT DETECT) 10/30/24 19: Parainfluenza 3 (PCR) Not detected (NOT DETECT) 06/19/25 19:30 Parainfluenza 4 (PCR) Not detected (NOT DETECT) 10/30/24 19:30 RSV Type A (PCR) Not detected (NOT DETECT) 10/30/24 19:30 RSV Type B (PCR) Not detected (NOT DETECT) 10/30/24 19:30 Entero/Rhino (PCR) Not detected (NOT DETECT) 10/30/24 19:30 SARS-CoV-2 (PCR) Not detected (NOT DETECT) 10/30/24 19:30 Vitals Last Vital Signs Temp 97.2 F L 11/03/24 11:30 Pulse 84 11/03/24 14:00 Resp 20 H 11/03/24 11:30 BP 115/80 11/03/24 11:30 Pulse Ox 96 11/03/24 11:30 O2 Del Method Room Air 11/03/24 11:30 O2 Flow Rate 2 10/30/24 13:10 Discharge Plan Discharge Patient Disposition: Home Condition: Stable Prescriptions: New ciprofloxacin HCl [Cipro] 500 mg tablet 500 mg PO BID 7 Days Qty: 14 0RF metronidazole 500 mg tablet 500 mg PO Q8H 7 Days Qty: 21 0RF pantoprazole [Protonix] 40 mg tablet,delayed release (DR/EC) 40 mg PO DAILY Qty: 7 0RF Continued (DME) corset brace See Rx Instructions .Route .MEDSUPPLY Qty: 1 0RF Rx Instructions: As directed (DME) right medial offloader brace See Rx Instructions .Route .MEDSUPPLY Qty: 1 0RF Rx Instructions: As directed (DME) DME: Rolling walker with Brakes See Rx Instructions .Route .MEDSUPPLY Qty: 1 0RF Rx Instructions: As directed (DME) DME: WHEELCHAIR See Rx Instructions .Route .MEDSUPPLY Qty: 1 0RF Rx Instructions: As directed. aspirin 81 mg tablet,delayed release (DR/EC) 81 mg PO DAILY losartan 50 mg tablet 50 mg PO DAILY Qty: 90 3RF alendronate [Fosamax] 70 mg tablet 70 mg PO Q7D Qty: 12 3RF atorvastatin 40 mg tablet 40 mg PO DAILY Qty: 90 3RF Lasix 20 mg tablet 20 mg PO DAILY Qty: 90 3RF Rx Instructions: Take one tab on Sunday, Wed, Fri, Sat. If having increased swelling take daily Klor-Con M20 20 mEq tablet,ER particles/crystals 20 meq PO DAILY Qty: 90 3RF Rx Instructions: Take on days that you take Furosemide sertraline 100 mg tablet 100 mg PO QAM Qty: 90 3RF acebutolol 400 mg capsule 400 mg PO BID Qty: 180 3RF Discharge Orders: Discharge Order (Routine); Ordered 11/03/24 Ordered By: Maria Del Carmen Simpson Referrals: Hernan Suarez MD [Primary Care Provider, [facility]] - 11/06/24 11:40 am Referral Note: hospital discharge follow up Discharge Diet: Advance as tolerated and GI Soft Discharge Activity: Resume usual activity Patient Instructions: Ciprofloxacin (By mouth) (Cipro), Metronidazole (By m [facility]) (Flagyl, Flagyl 375, Flagyl ER, Likmez), Pantoprazole (By mouth) (Protonix), A-fib (Atrial Fibrillation) (DC), Encephalopathy (DC), Opioid Safety Coding Level of Care Code Acute Code for g Fwd Diagnoses Atrial fibrillation with rapid ventricular response I48.91 Acute encephalopathy G93.40 Pancolitis K52.9
[2024-11-03] MEDS: aspirin 81 mg EC Tablet PO (10:05)
[2024-11-03] MEDS: atorvastatin 40 mg Tablet PO (10:05)
[2024-11-03] MEDS: potassium chloride ER 20 mEq Tablet PO (10:05)
[2024-11-03] MEDS: pantoprazole 40 mg SDV IVP (10:05)
[2024-11-03] MEDS: ACEBUTOLOL 400 MG 400 EACH PO ×2 (10:05→18:02)
--- NOTE | 2024-11-03 12:51 | PC.SOCIAL ---
IMM Updated Updated pt on IMM. No questions voiced. Provided pt a copy. Initialed, dated, & timed a copy & placed in chart.
[2024-11-03] MEDS: enoxaparin 40 mg/0.4 mL Syringe SUBCUT (18:01)
[2024-11-04] MEDS: metroNIDAZOLE 500 MG Tablet PO ×2 (00:29→09:30)
[2024-11-04 02:49] LABS: Basophils % 0.4 %; Eosinophils # 0.2 10^3/uL (0.0-0.8); Eosinophils % 2.2 %; Lymphocytes # 1.6 10^3/uL (0.8-4.8); Lymphocytes % 20.5 %; Mean Corpuscular HGB Conc 33.2 g/dL (30-55); Mean Corpuscular Hemoglobin 29.2 pg (27-33); Mean Corpuscular Volume 87.9 fl (85-98); Mean Platelet Volume 10.9 fL (7.4-10.4); Monocytes % 13.4 %; Neutrophils # 4.54 10^3/uL (1.8-7.7); Nucleated Red Blood Cells % 0 %; Platelet Count 150 10^3/cmm (157-399); Red Blood Count 3.87 10^6/uL (3.85-5.65)
[2024-11-04 03:22] LABS: Alanine Aminotransferase 31 U/L (0-33); Albumin Level 2.7 g/dL (3.5-5.2); Alkaline Phosphatase 72 U/L (35-105); Anion Gap 13.3 (5-19); Aspartate Amino Transferase 35 U/L (0-32); Blood Urea Nitrogen 14 mg/dL (8-23); Calcium 8.5 mg/dL (8.5-10.5); Carbon Dioxide 23 mmol/L (22-29); Chloride 105 mmol/L (98-107); Globulin 2.2 g/dL (1.3-4.6); Glucose 129 mg/dL (65-115); Osmolality Calculated 288 mOsm/kg (285-295); Potassium 3.3 mmol/L (3.5-5.1); Sodium 138 mmol/L (136-145); Total Bilirubin 0.4 mg/dL (0.15-1.2); Total Protein 4.9 g/dL (6.6-8.7)
[2024-11-04] MEDS: ciprofloxacin 500 mg Tablet PO ×2 (05:16→09:32)
[2024-11-04] MEDS: sertraline 100 mg Tablet PO (05:17)
[2024-11-04] MEDS: potassium chloride ER 20 mEq Tablet 40 MEQ PO (05:17)
[2024-11-04 05:18] VITALS: BP 118/62; PULSE 87; RESP 20; TEMP 36.8; O2SAT 94
[2024-11-04 07:47] VITALS: BP 109/58; PULSE 81; RESP 18; TEMP 36.4; O2SAT 95
[2024-11-04] MEDS: ACEBUTOLOL 400 MG 400 EACH PO (09:28)
[2024-11-04] MEDS: pantoprazole 40 mg SDV IVP (09:30)
[2024-11-04] MEDS: potassium chloride ER 20 mEq Tablet PO (09:30)
[2024-11-04] MEDS: aspirin 81 mg EC Tablet PO (09:30)
[2024-11-04] MEDS: atorvastatin 40 mg Tablet PO (09:30)
[2024-11-04] MEDS: sodium chloride 0.9% 500 ML IV (12:13)
--- NOTE | 2024-11-04 13:41 | PC.NURSE ---
Report called to [facility] at [phone]- report to given to MILTON Eller.
--- NOTE | 2024-11-04 14:06 | PM.DCS ---
Discharge Providers Date of Admission: 10/31/24 18:14 Date of Discharge: November 04, 2024 Attending Provider at Admission: Ankush Fishman Attending Provider at Discharge: Maria Del Carmen Simpson MD Primary Care Provider: Hernan Suarez MD Diagnoses at Discharge Discharge Diagnosis (1) Atrial fibrillation with rapid ventricular response: Status: Acute (2) Acute encephalopathy: Status: Acute (3) Pancolitis: Status: Acute Reason for Visit Reason for Visit: fall Hospital Course Hospital Course Deirdre Connolly is a 88 year old female with a history of dementia, mitral valve disease, hypertension, pulmonary nodule, GERD, generalized anxiety disorder, osteopenia, and prior stroke, presenting after being found down on the floor at home by family, suspected to have been down overnight. She had soiled herself and complained of left shoulder and left hip pain. Imaging in the emergency department revealed no hip or pelvic fracture, a stable left hip arthroplasty, and osteoarthritis of the left glenohumeral joint. Patient also complained of several episodes of diarrhea which had been ongoing for about a month or so. CT of the abdomen and pelvis revealed colitis. C. difficile was negative. Stool Cx returned positive for salmonella species, not further identified as typi. She received empiric antibiotic treatment with ciprofloxacin and metronidazole which has been converted to oral at the time of discharge. Total recommended duration of treatment to be 10 days. She had hypokalemia related to the diarrhea which was supplemented with oral potassium. She had rhabdomyolysis upon admission with CK over 3000. She received gentle IV hydration, currently her muscle pain is much improved. She was also noted to have A-fib with RVR for which she initially required a Cardizem infusion, this was transitioned to her home dose of Acebutalol 400 mg twice a day. Heart rate remains well-controlled today as does her blood pressure. Patient does not know if she has a history of known A-fib, she is not noted to be on any anticoagulation, presumably related to history of recurrent falls. Per review of notes from primary care provider her recurrent falls have resulted in a scalp hematoma and multiple fractures in the past. She feels clinically improved. No abdominal pain. Diarrhea is improving. No blood in stool. Heart rate and blood pressure remain well-controlled. Patient is being discharged today in stable condition. Physical Exam Narrative: General: No acute distress, AO x3 HEENT: PERRLA, pupils bilaterally equal and reactive, pallors not present Chest: Normal vesicular breath sounds, no added sounds, equal good air entry bilaterally CVS: S1-S2 regular, no murmurs, no tachycardia, no gallops, no rubs Abdomen: Soft, nontender, no organomegaly, bowel sounds present Neuro: No focal deficits, no facial deformity, AO x3, power 5/5 in all limbs Urinary Catheter Management: Garrett: Cath Placed During This Visit: yes, but has since been removed by the nurse Reason for Continuing Indwelling Catheter: Accurate Measurement of Urinary Output in Critically Ill Patients Urinary Catheter Date of Insertion: 10/30/24 Urinary Catheter Time of Insertion: 19:00 Date Urinary Catheter Removed: 11/03/24 Time Urinary Catheter Discontinued: 07:30 Garrett Latex Free: Cath Placed During This Visit: no Reason for Continuing Indwelling Catheter: Assist Healing of Perineal & Sacral Wounds- Incontinent Patients Discharge Data Studies Completed and Pending Completed Studies During Hospitalization Category Date Time Status CT abdomen pelvis wo con [id number] Routine Cat Scan 10/31/24 17:47 Completed XR chest 1V portable [id number] Stat Exams 10/30/24 09:51 Completed XR pelvis 1-2V* [id number] Stat Exams 10/30/24 09:47 Completed XR shoulder LT min 2V* [id number] Stat Exams 10/30/24 10:56 Completed Stool Culture - Enteric [Salmonella / Shigella / Campy] Lab 10/30/24 08:17 Completed Routine CV. echo complete* [id number] Routine Ultrasound 11/01/24 17:43 Completed Radiology Impressions Pelvis X-Ray 10/30/24 09:47 Impression: 1. Negative for hip or pelvic fracture. 2. Stable left hip arthroplasty. Chest X-Ray 10/30/24 09:51 Impression: Atherosclerosis and old granulomatous disease. Shoulder X-Ray 10/30/24 10:56 Impression: Osteoarthritis of the left glenohumeral joint. Abdomen/Pelvis CT 10/31/24 17:47 IMPRESSION: Mild extensive colitis with mild thickening of the wall of most of the colon. Laboratory Results WBC 7.70 10^3/uL (3.29-11.43) 11/04/24 02:40 RBC 3.87 10^6/uL (3.85-5.65) 11/04/24 02:40 Hgb 11.30 g/dL (11.27-16.99) 11/04/24 02:40 Hct 34.0 % (36-47) L 11/04/24 02:40 MCV 87.9 fl (85-98) 11/04/24 02:40 MCH 29.2 pg (27-33) 11/04/24 02:40 MCHC 33.2 g/dL (30-55) 11/04/24 02:40 RDW 13.0 % (12.1-15.1) 11/04/24 02:40 Plt Count 150 10^3/cmm (157-399) L 11/04/24 02:40 MPV 10.9 fL (7.4-10.4) H 11/04/24 02:40 Neut % (Auto) 59.0 % 11/04/24 02:40 Lymph % (Auto) 20.5 % 11/04/24 02:40 [place] % (Auto) 13.4 % 11/04/24 02:40 Eos % (Auto) 2.2 % 11/04/24 02:40 Baso % (Auto) 0.4 % 11/04/24 02:40 Neut # (Auto) 4.54 10^3/uL (1.8-7.7) 11/04/24 02:40 Lymph # (Auto) 1.6 10^3/uL (0.8-4.8) 11/04/24 02:40 [place] # (Auto) 1.0 10^3/uL (0.2-0.9) H 11/04/24 02:40 Eos # (Auto) 0.2 10^3/uL (0.0-0.8) 11/04/24 02:40 Baso # (Auto) 0.0 10^3/uL (0.0-0.1) 11/04/24 02:40 Nucleated RBC % (auto) 0 % 11/04/24 02:40 Nucleated RBCs # 0.0 /100WBC 11/04/24 02:40 Sodium 138 mmol/L (136-145) 11/04/24 02:40 Potassium 3.3 mmol/L (3.5-5.1) L 11/04/24 02:40 Chloride 105 mmol/L (98-107) 11/04/24 02:40 Carbon Dioxide 23 mmol/L (22-29) 11/04/24 02:40 Anion Gap 13.3 (5-19) 11/04/24 02:40 BUN 14 mg/dL (8-23) 11/04/24 02:40 Creatinine 0.7 mg/dL (0.5-0.9) 11/04/24 02:40 GFR Calculation Not Reportable 11/04/24 02:40 Glucose 129 mg/dL (65-115) H 11/04/24 02:40 POC Glucose 102 mg/dL (70-110) 11/01/24 20:11 Calculated Osmolality 288 mOsm/kg (285-295) 11/04/24 02:40 Calcium 8.5 mg/dL (8.5-10.5) 11/04/24 02:40 Magnesium 1.7 mg/dL (1.7-2.3) 11/03/24 05:10 Total Bilirubin 0.4 mg/dL (0.15-1.2) 11/04/24 02:40 AST 35 U/L (0-32) H 11/04/24 02:40 ALT 31 U/L (0-33) 11/04/24 02:40 Alkaline Phosphatase 72 U/L (35-105) 11/04/24 02:40 Creatine Kinase 1370 U/L (26-192) H* 10/31/24 04:20 Troponin T Baseline 91 ng/L (0-10) H 10/30/24 09:54 Troponin T 120 Minute 84.14 ng/L (0-10) H 10/30/24 11:44 Delta Troponin T -6.86 ABS# (0-10) L 10/30/24 11:44 Troponin T Hi Sens 6Hr 91.74 ng/L (0-10) H 10/30/24 15:46 Troponin T Hi Sens 6Hr Delta 0.74 ng/L (0-12) 10/30/24 15:46 Total Protein 4.9 g/dL (6.6-8.7) L 11/04/24 02:40 Albumin 2.7 g/dL (3.5-5.2) L 11/04/24 02:40 Globulin 2.2 g/dL (1.3-4.6) 11/04/24 02:40 TSH 0.97 uIU/mL (0.27-4.20) 10/30/24 09:54 Urine Color Dark yellow (Yellow) A 10/30/24: Urine Appearance Clear (CLEAR) 10/30/24: Urine pH 5.5 (5-7) 10/30/24: Ur Specific [place] 1.025 (1.005-1.030) 10/30/24 19: Urine Protein 2+ (Negative) A 10/30/24 Urine Glucose (UA) Negative (Normal) 10/30/24 Urine Ketones 1+ (Negative) H 10/30/24: Urine Blood 2+ (Negative) A 10/30/24 Urine Nitrate Negative (Negative) 10/30/24 Urine Bilirubin Negative (Negative) 10/30/24 Urine Urobilinogen 1.0 mg/dL (Negative) 10/30/24: Ur Leukocyte Esterase Negative (Negative) 10/30/24: Urine RBC 3-5 /hpf (0-2) 10/30/24: Urine WBC 0-5 /hpf (0-5) 10/30/24: Ur Squamous Epith Cells 0-5 /hpf (0-5) 10/30/24 Amorphous Sediment Not Reportable 10/30/24: Urine Bacteria 1+ /hpf (NONE) H 10/30/24 19: Hyaline Casts 17.37 /lpf 10/30/24: Adenovirus (PCR) Not detected (NOT DETECT) 10/30/24 19: C. pneumoniae DNA (PCR) Not detected (NOT DETECT) 10/30/24: C. difficile (PCR) Negative (Negative) 10/31/24 08:17 Coronavirus 229E (PCR) Not detected (NOT DETECT) 10/30/24 19: Human Metapneumovir PCR Not detected (NOT DETECT) 10/30/24 19: Influenza A (H1) PCR Not detected (NOT DETECT) 10/30/24 19: Influ A (H1/09) PCR Not detected (NOT DETECT) 10/30/24 19: Influenza A (H3) PCR Not detected (NOT DETECT) 10/30/24 19: Influenza Type A (PCR) Not detected (NOT DETECT) 10/30/24 19:30 Influenza Type B (PCR) Not detected (NOT DETECT) 10/30/24 19:30 M. pneumoniae (PCR) Not detected (NOT DETECT) 10/30/24 19:30 Parainfluenza 1 (PCR) Not detected (NOT DETECT) 10/30/24 19:30 Parainfluenza 2 (PCR) Not detected (NOT DETECT) 10/30/24 19:30 Parainfluenza 3 (PCR) Not detected (NOT DETECT) 10/30/24 19:30 Parainfluenza 4 (PCR) Not detected (NOT DETECT) 10/30/24 19:30 RSV Type A (PCR) Not detected (NOT DETECT) 10/30/24 19:30 RSV Type B (PCR) Not detected (NOT DETECT) 10/30/24 19:30 Entero/Rhino (PCR) Not detected (NOT DETECT) 10/30/24 19:30 SARS-CoV-2 (PCR) Not detected (NOT DETECT) 10/30/24 19:30 Vitals Last Vital Signs Temp 97.6 F 11/04/24 07:47 Pulse 81 11/04/24 07:47 Resp 18 11/04/24 07:47 BP 109/58 11/04/24 07:47 Pulse Ox 95 11/04/24 07:47 O2 Del Method Nasal Cannula 11/04/24 07:47 O2 Flow Rate 2 10/30/24 13:10 Discharge Plan Discharge Patient Disposition: Xfer SNF Condition: Stable Prescriptions: New ciprofloxacin HCl [Cipro] 500 mg tablet 500 mg PO BID 7 Days Qty: 14 0RF metronidazole 500 mg tablet 500 mg PO Q8H 7 Days Qty: 21 0RF pantoprazole [Protonix] 40 mg tablet,delayed release (DR/EC) 40 mg PO DAILY Qty: 7 0RF Continued (DME) corset brace See Rx Instructions .Route .MEDSUPPLY Qty: 1 0RF Rx Instructions: As directed (DME) right medial offloader brace See Rx Instructions .Route .MEDSUPPLY Qty: 1 0RF Rx Instructions: As directed (DME) DME: Rolling walker with Brakes See Rx Instructions .Route .MEDSUPPLY Qty: 1 0RF Rx Instructions: As directed (DME) DME: WHEELCHAIR See Rx Instructions .Route .MEDSUPPLY Qty: 1 0RF Rx Instructions: As directed. aspirin 81 mg tablet,delayed release (DR/EC) 81 mg PO DAILY losartan 50 mg tablet 50 mg PO DAILY Qty: 90 3RF alendronate [Fosamax] 70 mg tablet 70 mg PO Q7D Qty: 12 3RF atorvastatin 40 mg tablet 40 mg PO DAILY Qty: 90 3RF Lasix 20 mg tablet 20 mg PO DAILY Qty: 90 3RF Rx Instructions: Take one tab on Sunday, Sun, Sun, Sat. If having increased swelling take daily Klor-Con M20 20 mEq tablet,ER particles/crystals 20 meq PO DAILY Qty: 90 3RF Rx Instructions: Take on days that you take Furosemide sertraline 100 mg tablet 100 mg PO QAM Qty: 90 3RF acebutolol 400 mg capsule 400 mg PO BID Qty: 180 3RF Discharge Orders: Discharge Order (Routine); Ordered 11/03/24 Ordered By: Maria Del Carmen Simpson Referrals: [facility] [place] [Outside] Hernan Suarez MD [Primary Care Provider, [facility]] - 11/06/24 11:40 am Referral Note: hospital discharge follow up Discharge Diet: Advance as tolerated and GI Soft Discharge Activity: Resume usual activity Patient Instructions: Ciprofloxacin (By mouth) (Cipro), Metronidazole (By mouth) (Flagyl, Flagyl 375, Flagyl ER, Likmez), Pantoprazole (By mouth) (Protonix), A-fib (Atrial Fibrillation) (DC), Encephalopathy (DC), Opioid Safety Discharge Attestations Time Spent in Discharge Care*: greater than 30 min Quality Metrics Clinical Quality Measures [ No reported AMI, CVA or VTE this stay] Coding Level of Care Code Acute Code for Chg Fwd Diagnoses Atrial fibrillation with rapid ventricular response I48.91 Acute encephalopathy G93.40 Pancolitis K52.9
[2024-11-04 14:14] VITALS: BP 174/92; PULSE 83; RESP 20; TEMP 36.8; O2SAT 94
== END 2024-11-04 14:15 | disposition skilled nursing facility (03) | DRG 308 ==
LOC: ER 11:12 → CSU 16:29
PROVIDERS: Internal Medicine; Admitting Provider Internal Medicine; Emergency Provider Family Medicine; PCP Family Medicine; Visit Provider Student in an Organized Health Care Education/Training Program
DX: I48.91 Unspecified atrial fibrillation (principal); G93.41 Metabolic encephalopathy; M62.82 Rhabdomyolysis; K52.9 Noninfective gastroenteritis and colitis, unspecified; K21.9 Gastro-esophageal reflux disease without esophagitis; M85.80 Other specified disorders of bone density and structure, unspecified site; F41.1 Generalized anxiety disorder; M17.0 Bilateral primary osteoarthritis of knee; I10 Essential (primary) hypertension; I25.9 Chronic ischemic heart disease, unspecified; E87.6 Hypokalemia; Z96.642 Presence of left artificial hip joint; F03.90 Unspecified dementia, unspecified severity, without behavioral disturbance, psychotic disturbance, mood disturbance, and anxiety; R91.1 Solitary pulmonary nodule; I05.9 Rheumatic mitral valve disease, unspecified; M19.012 Primary osteoarthritis, left shoulder; R74.01 Elevation of levels of liver transaminase levels; E86.0 Dehydration; Z11.52 Encounter for screening for COVID-19; Z79.82 Long term (current) use of aspirin; Z79.899 Other long term (current) drug therapy; Z88.0 Allergy status to penicillin; Z87.891 Personal history of nicotine dependence; Z87.440 Personal history of urinary (tract) infections; Z91.81 History of falling; Z86.73 Personal history of transient ischemic attack (TIA), and cerebral infarction without residual deficits
CPT/HCPCS: 36415; 36416; 51702; 71045; 72170; 73030; 74176; 80048; 80053; 81001; 82274; 82550; 82962; 83630; 83735; 84132; 84443; 84484; 85025; 87045; 87427; 87449; 87486; 87493; 87581; 87633; 93005; 93306; 96365; 96366; 96372; 96375; 96376; 97116; 97162; 97165; 97530; 99285; A9270; G0378; J0744; J1160; J1650; J2405; J2470; J3480; J3490; J7040; J7120; J9999

== ENCOUNTER → 2025-02-25 11:20 | Outpatient (BNVA) | payer OTHER, MEDICAID, SELFPAY | PROVIDERS: PCP Family Medicine; Visit Provider Family Medicine | DX: Z51.81 Encounter for therapeutic drug level monitoring (principal); R73.09 Other abnormal glucose; E87.6 Hypokalemia; R30.0 Dysuria | CPT/HCPCS: 80053; 81000; 83036; 83735; 85025 ==